=== PATIENT | male | born 1975 | race Caucasian/White ===

== ENCOUNTER → 2018-11-14 | Outpatient (CLI) | payer BC ==
[~2018-11-14] MED LIST: ACHD5005 PO; DIAZ2TAB PO; DOXY100T2 PO; FAMO10TA43 PO; HOLD METFORMIN - RECEIVED CONTRAST 20 ML VIAL IV SCH; IBUP-1780 PO; IOHEXOL 350 MG/ML 100 ML (OMNIPAQUE 350) VIAL IV ONE; NS 100 ML (IVPB) BAG IV ONE; PANT40TA2 PO
--- NOTE | 2018-11-14 11:21 | Diagnostic Imaging Report ---
PROCEDURE: CT abdomen and pelvis with and without contrast. TECHNIQUE: Precontrast acquisitions were acquired through the abdomen and pelvis. Multiple contiguous axial images were obtained through the abdomen and pelvis after the administration of intravenous contrast. Auto Exposure Controls were utilized during the CT exam to meet ALARA standards for radiation dose reduction. INDICATION: Right upper quadrant pain. COMPARISON: None available. FINDINGS: Lower chest: The lung bases are clear. No pericardial or pleural effusion. Peritoneum: No free intraperitoneal air or fluid. Liver and biliary system: The liver is normal. The gallbladder is normal. No biliary duct dilation. Spleen and Pancreas: Spleen is normal. The pancreas enhances normally without mass lesion or peripancreatic inflammatory changes. Adrenals: Normal. tract: No urinary tract calculi. The kidneys enhance normally without suspicious mass or obstruction. Simple cysts in the lower pole of the left kidney measures 2 x 2 cm. Urinary bladder is distended without wall thickening. Prostate is not enlarged. GI tract: Stomach is partially filled with fluid and there is no wall thickening allowing for incomplete distention. No bowel obstruction. No pericolonic inflammatory changes. Normal appendix. Vasculature and Lymph nodes: Normal caliber aorta. No abdominal or pelvic lymphadenopathy. Musculoskeletal: No concerning osseous lesion. No abdominal or pelvic hernia. Small fat-containing bilateral inguinal hernias. IMPRESSION: 1. No acute obstructive or inflammatory process in the abdomen or pelvis. 2. No urinary tract calculi. Dictated by: Dictated on workstation # [id number]
== END ==
LOC: RAD 10:46
PROVIDERS: ATTEND Nurse Practitioner Family
DX: R10.11 Right upper quadrant pain (principal)
CPT/HCPCS: 74178

== ENCOUNTER → 2018-11-15 | Outpatient (CLI) | payer BC ==
[~2018-11-15] MED LIST changes: -HOLD METFORMIN - RECEIVED CONTRAST 20 ML VIAL IV SCH; -IOHEXOL 350 MG/ML 100 ML (OMNIPAQUE 350) VIAL IV ONE; -NS 100 ML (IVPB) BAG IV ONE
== END | disposition home or self-care (01) ==
LOC: PREOP 12:55
PROVIDERS: ATTEND Surgery
DX: Z01.818 Encounter for other preprocedural examination (principal)

== ENCOUNTER 2018-11-16 20:36 | Emergency (ER) | payer BC ==
[~2018-11-16] VITALS: Ht 182.9 cm; Wt 111.6 kg
[2018-11-16] MEDS ORDERED: morphine INJ 10 MG/ML 1ML (SYR OR VIAL) IM STA (21:04)
--- NOTE | 2018-11-16 21:04 | ED Upper Extremity ---
General Chief Complaint: Upper Extremity Stated Complaint: RT ARM Nursing Triage Note: PT HAD HIS GALL BLADDER OUT TODAY AND NOW C/O RIGHT ARM PAIN. PT. SCREAMING OUT IN PAIN. PT. C/O RIGHT ARM AND SHOULDER PAIN. Nursing Sepsis Screen: No Definite Risk Source: patient, family History of Present Illness Date Seen by Provider: Nov 16, 2018 Time Seen by Provider: 21:02 Allergies and Home Medications Allergies Coded Allergies: Penicillins (Verified Allergy, Unknown, 11/16/18) Home Medications Diazepam 2 Mg Tablet, 2 MG PO Q6H, (Reported) Doxycycline Hyclate 100 Mg Tablet, 100 MG PO PRN, (Reported) Famotidine 10 Mg Tablet, 10 MG PO BID, (Reported) Hydrocodone Bit/Acetaminophen 1 Tab Tab, 1 TAB PO Q6H PRN for ABDOMINAL PAIN Prescribed by: EUGENE MARCOS on 11/16/18 1424 Ibuprofen 800 Mg Tablet, 800 MG PO PRN PRN for PAIN-MILD, (Reported) Past Pipwwzq-Lkrpnv-Kpetvl Hx Patient Social History Type Used: Cigarettes Former Smoker, Quit: Jan 17, 2003 Recent Foreign Travel: No Contact w/Someone Who Travel: No Recent Infectious Disease Expo: No Recent Hopitalizations: No Seasonal Allergies Seasonal Allergies: Yes Past Medical History Surgeries: No (EGD/COLONOSCOPY) Respiratory: No Cardiac: No Neurological: No Genitourinary: No Gastrointestinal: Yes Gastroesophageal Reflux Musculoskeletal: No Endocrine: No HEENT: No Cancer: No Psychosocial: Yes Anxiety Integumentary: No Blood Disorders: No Physical Exam Vital Signs Vital Signs - First Documented 11/16/18 20:45 Temp 98.4 Pulse 109 Resp 20 B/P (MAP) 164/71 (102) O2 Delivery Room Air Capillary Refill : Less Than 3 Seconds Height, Weight, BMI Height: 6'0" Weight: 246lbs. 0.0oz. [id number]; 33.5 BMI Method:Stated Progress/Results/Core Measures Results/Orders My Orders Orders - DANA TRIMBLE DO Orphenadrine Injection (Norflex Injectio (11/16/18 21:15) Morphine Injection (Morphine Injection (11/16/18 21:04) Chest Pa/Lat (2 View) (11/16/18 21:48) Diazepam Injection (Valium Injection) (11/16/18 23:45) Dexamethasone Injection (Decadron Inject (11/16/18 23:45) Diazepam Tablet (Valium Tablet) (11/16/18 23:45) Medications Given in ED Current Medications Medications Dose Ordered Sig/Lynne Route Start Time Stop Time Status Last Admin Dose Admin Orphenadrine Citrate 60 mg ONCE ONCE IM 11/16/18 21:15 11/16/18 21:16 DC 11/16/18 21:22 60 MG Vital Signs/I&O 11/16/18 20:45 Temp 98.4 Pulse 109 Resp 20 B/P (MAP) 164/71 (102) O2 Delivery Room Air Blood Pressure Mean: 102 Departure Impression Primary Impression: Right shoulder pain Additional Impression: S/P cholecystectomy Disposition: 01 HOME, SELF-CARE Condition: Improved Departure-Patient Inst. Decision time for Depature: 23:43 Referrals: DANA MARTINEZ DO (PCP) Primary Care Physician DAMIAN MARTINEZ, SARA (Family) Primary Care Physician EUGENE MARCOS DO Patient Instructions: Cholecystectomy (DC), Shoulder Pain (DC) Add. Discharge Instructions: All discharge instructions reviewed with patient and/or family. Voiced understanding. MAY TAKE 2 OF YOUR HYDROCODONE EVERY 4-6 HOURS FOR PAIN. MAY TAKE 5 mg OF VALIUM EVERY 6 HOUR NEEDED WELL. 600 mg OF IBUPROFEN CAN BE USED WELL EVERY 6 HOURS IF NEEDED. DANA TRIMBLE DO Nov 16, 2018 21:04
[2018-11-16] MEDS ORDERED: ORPHENADRINE 60 MG/2 ML (NORFLEX) AMP IM ONE (21:15)
[2018-11-16] MEDS ORDERED: DIAZEPAM INJ 10 MG/2 ML (VALIUM) SYR IM ONE (23:45)
[2018-11-16] MEDS ORDERED: DIAZEPAM 5 MG (VALIUM) TABLET PO ONE (23:45)
[2018-11-16] MEDS ORDERED: DEXAMETHASONE 10 MG/ML (DECADRON) 1 ML VIAL IM ONE (23:45)
[2018-11-16 23:49] VITALS: BP 164/71
--- NOTE | 2018-11-17 05:25 | Diagnostic Imaging Report ---
INDICATION: Right arm pain COMPARISON: None available TECHNIQUE: Frontal and lateral radiographs of the chest dated 11/16/2018. FINDINGS: The cardiac silhouette is within normal limits in size. No significant pulmonary vascular congestion. Low lung volumes with mild bibasilar interstitial opacities. No significant pleural effusion. No pneumothorax. No acute osseous abnormality. IMPRESSION: Low lung volumes with bibasilar atelectasis and/or pneumonitis. Dictated by: Dictated on workstation # [id number]
== END 2018-11-16 23:49 | disposition home or self-care (01) ==
LOC: EDUNIT# 20:36 → ER FS 20:37
DX: M25.511 Pain in right shoulder (principal); K21.9 Gastro-esophageal reflux disease without esophagitis; F41.9 Anxiety disorder, unspecified; Z88.0 Allergy status to penicillin; Z87.891 Personal history of nicotine dependence; Z90.49 Acquired absence of other specified parts of digestive tract
CPT/HCPCS: 71046

== ENCOUNTER 2019-04-27 15:27 | Emergency (ER) | payer BC ==
[~2019-04-27] VITALS: Ht 182 cm; Wt 111.0 kg
--- NOTE | 2019-04-27 16:00 | ED Upper Extremity ---
General Chief Complaint: Upper Extremity Stated Complaint: LT ANKLE PAIN Nursing Triage Note: PT DID NOT INJURE HIS ANKLE BUT HAS HAD PAIN IN THE LEFT ANKLE SINCE TUESDAY. Nursing Sepsis Screen: No Definite Risk Source: patient Exam Limitations: no limitations History of Present Illness Date Seen by Provider: Apr 27, 2019 Time Seen by Provider: 15:45 Initial Comments Patient presents with complaint of left ankle pain worse with weightbearing for the past one week. Denies injury or history of injury. Denies swelling or bruising. Pain is described as burning sometimes shooting from his ankle into his heel. Denies previous occurrence of similar pain. Denies any work-related overuse or trauma. No other joint pain, no other complaints. Pain is intermittent and exacerbated by weight bearing only. No pain at rest or with NWB and active ROM Allergies and Home Medications Allergies Coded Allergies: Penicillins (Verified Allergy, Unknown, 11/16/18) Home Medications Diazepam 2 Mg Tablet, 2 MG PO Q6H, (Reported) Doxycycline Hyclate 100 Mg Tablet, 100 MG PO PRN, (Reported) Famotidine 10 Mg Tablet, 10 MG PO BID, (Reported) Hydrocodone Bit/Acetaminophen 1 Tab Tab, 1 TAB PO Q6H PRN for ABDOMINAL PAIN Prescribed by: EUGENE MARCOS on 11/16/18 1424 Ibuprofen 800 Mg Tablet, 800 MG PO PRN PRN for PAIN-MILD, (Reported) Patient Home Medication List Home Medication List Reviewed: Yes Review of Systems Constitutional: no symptoms reported; No fever, No malaise, No weakness Musculoskeletal: no symptoms reported; No back pain; joint pain; No joint swelling, No muscle pain, No muscle stiffness, No muscle cramps, No muscle twitching, No muscle weakness, No neck pain Skin: see HPI; No change in hair/nails, No lesions, No lumps Past Mtmlacq-Bllmqp-Koqqln Hx Past Med/Social Hx: Reviewed Nursing Past Med/Soc Hx Patient Social History Alcohol Use: Regular Use Alcohol Beverage of Choice: Beer Recreational Drug Use: No Smoking Status: Current Everyday Smoker Type Used: Cigarettes Former Smoker, Quit: Jan 17, 2003 2nd Hand Smoke Exposure: No Recent Foreign Travel: No Contact w/Someone Who Travel: No Recent Infectious Disease Expo: No Recent Hopitalizations: No Physical Abuse: No Sexual Abuse: No Mistreated: No Fear: No Seasonal Allergies Seasonal Allergies: No Past Medical History Surgeries: Yes Gallbladder Respiratory: No Cardiac: No Neurological: No Genitourinary: No Gastrointestinal: No Gastroesophageal Reflux Musculoskeletal: No Endocrine: No HEENT: No Cancer: No Psychosocial: No Anxiety Integumentary: No Blood Disorders: No Physical Exam Vital Signs Vital Signs - First Documented 04/27/19 15:40 Temp 36.6 Pulse 99 Resp 20 B/P (MAP) 143/82 (102) Pulse Ox 96 O2 Delivery Room Air Capillary Refill : Less Than 3 Seconds Height, Weight, BMI Height: 6'0" Weight: 246lbs. 0.0oz. 111.694154me; 33.00 BMI Method:Stated General Appearance: WD/WN, no apparent distress Skin: normal color, warm/dry Left lower extremity- Neurovascular intact, no gross deformity, full functional range of motion without limitation or pain. No palpable tenderness either bony, soft tissue or ligamentous. No fifth metatarsal pain, no calcaneal pain, no Achilles tenderness. No calf tenderness and no proximal fibular or tibia tenderness. Normal left lower extremity. Progress/Results/Core Measures Results/Orders My Orders Orders - RIAZ GÓMEZ DO Ankle 3 View Left (04/27/19 15:54) Vital Signs/I&O 04/27/19 04/27/19 15:40 16:26 Temp 36.6 36.6 Pulse 99 99 Resp 20 20 B/P (MAP) 143/82 (102) 143/82 (102) Pulse Ox 96 96 O2 Delivery Room Air Blood Pressure Mean: 102 POS Departure Impression Primary Impression: Ankle pain, left Qualified Codes: M25.572 - Pain in left ankle and joints of left foot Disposition: 01 HOME, SELF-CARE Condition: Unchanged Departure-Patient Inst. Referrals: DANA MARTINEZ DO (PCP) Primary Care Physician DAMIAN MARTINEZ DNP (Family) Primary Care Physician Patient Instructions: Ankle Strengthening Exercises Add. Discharge Instructions: All discharge instructions reviewed with patient and/or family. Voiced understanding. See your Primary Care Doctor in 1 week for re-evaluation. RIAZ GÓMEZ DO Apr 27, 2019 16:00 POS
--- NOTE | 2019-04-27 16:10 | Diagnostic Imaging Report ---
INDICATION: Left ankle pain. AP, oblique and lateral views of the left ankle are obtained. FINDINGS: There is mild plantar calcaneal spurring. No acute fracture or dislocation is identified. No abnormal lytic or sclerotic focus is seen, and there is no radiopaque foreign body. IMPRESSION: No acute abnormality. Dictated by: Dictated on workstation # [id number]
[2019-04-27 16:26] VITALS: BP 143/82
--- OUTSIDE RECORDS SUMMARY | 2019-05-23 14:32 | XMS REPORT | Continuity of Care Document ---
Author Organization Unknown Address Unknown Phone Unavailable Allergies Active Description Code Type Severity Reaction Onset Reported/Identified Relationship to Patient Clinical Status Yes Penicillins [id number] Drug Aller gy Unknown N/A 11/16/2018 Medications There is no data. Problems Date Dx Coded Attending Type Code Diagnosis Diagnosed By 01/17/2018 KASHIF PITTMAN MD, Ot Z01.818 ENCOUNTER FOR OTHER PREPROCEDURAL EXAMIN 01/19/2018 KASHIF PITTMAN MD, Ot B96.81 HELICOBACTER PYLORI THE CAUSE OF DISE 01/19/2018 KASHIF PITTMAN MD Ot K22.10 ULCER OF ESOPHAGUS WITHOUT BLEEDING 01/19/2018 KASHIF PITTMAN MD Ot K29.50 UNSPECIFIED CHRONIC GASTRITIS WITHOUT BL 01/19/2018 KASHIF PITTMAN MD Ot K29.80 DUODENITIS WITHOUT BLEEDING 01/24/2018 KASHIF PITTMAN MD Ot B96.81 HELICOBACTER PYLORI THE CAUSE OF DISE 01/24/2018 KASHIF PITTMAN MD Ot K22.10 ULCER OF ESOPHAGUS WITHOUT BLEEDING 01/24/2018 KASHIF PITTMAN MD Ot K29.50 UNSPECIFIED CHRONIC GASTRITIS WITHOUT BL 01/24/2018 KASHIF PITTMAN MD Ot K29.80 DUODENITIS WITHOUT BLEEDING 01/25/2018 KASHIF PITTMAN MD Ot B96.81 HELICOBACTER PYLORI THE CAUSE OF DISE 01/25/2018 KASHIF PITTMAN MD Ot K22.10 ULCER OF ESOPHAGUS WITHOUT BLEEDING 01/25/2018 KASHIF PITTMAN MD Ot K29.50 UNSPECIFIED CHRONIC GASTRITIS WITHOUT BL 01/25/2018 KASHIF PITTMAN MD Ot K29.80 DUODENITIS WITHOUT BLEEDING 11/15/2018 DAMIAN MARTINEZ PYROTECHNIC ASSEMBLER Ot R10.11 RIGHT UPPER QUADRANT PAIN 11/16/2018 EUGENE MARCOS DO Ot Z01.8 18 ENCOUNTER FOR OTHER PREPROCEDURAL EXAMIN 11/16/2018 EUGENE MARCOS DO Ot B96.8 1 HELICOBACTER PYLORI THE CAUSE OF DISE 11/16/2018 HEMANT TRUJILLO, EUGENE B Ot E66.9 OBESITY, UNSPECIFIED 11/16/2018 HEMANT TRUJILLO, EUGENE B Ot K20.9 ESOPHAGITIS, UNSPECIFIED 11/16/2018 HEMANT TRUJILLO, EUGENE B Ot K21.9 GASTRO-ESOPHAGEAL REFLUX DISEASE WITHOUT 11/16/2018 HEMANT TRUJILLO, EUGENE B Ot K29.5 0 UNSPECIFIED CHRONIC GASTRITIS WITHOUT BL 11/16/2018 HEMANT TRUJILLO EUGENE B Ot K81.1 CHRONIC CHOLECYSTITIS 11/16/2018 HEMANT TRUJILLO, EUGENE B Ot M25.5 11 PAIN IN RIGHT SHOULDER 11/16/2018 HEMANT TRUJILLO, EUGENE B Ot Z68.3 3 BODY MASS INDEX (BMI) 33.0-33.9, ADULT 11/16/2018 HEMANT TRUJILLO EUGENE B Ot Z01.8 18 ENCOUNTER FOR OTHER PREPROCEDURAL EXAMIN 11/16/2018 DANA TRIMBLE DO Ot F41.9 ANXIETY DISORDER, UNSPECIFIED 11/16/2018 DANA TRIMBLE DO Ot K21.9 GASTRO-ESOPHAGEAL REFLUX DISEASE WITHOUT 11/16/2018 DANA TRIMBLE DO Ot M25.511 PAIN IN RIGHT SHOULDER 11/16/2018 DANA TRIMBLE DO Ot Z87.891 PERSONAL HISTORY OF NICOTINE DEPENDENCE 11/16/2018 DANA TRIMBLE DO Ot Z88.0 ALLERGY STATUS TO PENICILLIN 11/16/2018 DANA TRIMBLE DO Ot Z90.49 ACQUIRED ABSENCE OF OTHER SPECIFIED PART 11/17/2018 DANA TRIMBLE DO Ot F41.9 ANXIETY DISORDER, UNSPECIFIED 11/17/2018 DANA TRIMBLE DO Ot K21.9 GASTRO-ESOPHAGEAL REFLUX DISEASE WITHOUT 11/17/2018 DANA TRIMBLE DO Ot M25.511 PAIN IN RIGHT SHOULDER 11/17/2018 DANA TRIMBLE DO Ot Z87.891 PERSONAL HISTORY OF NICOTINE DEPENDENCE 11/17/2018 DANA TRIMBLE DO Ot Z88.0 ALLERGY STATUS TO PENICILLIN 11/17/2018 DANA TRIMBLE DO Ot Z90.49 ACQUIRED ABSENCE OF OTHER SPECIFIED PART 11/28/2018 DAMIAN MARTINEZ Ot R10.11 RIGHT UPPER QUADRANT PAIN 11/29/2018 HEMANT SHANON TRUJILLOIC B Ot B96.8 1 HELICOBACTER PYLORI THE CAUSE OF DISE 11/29/2018 DELMAN DO, EUGENE B Ot E66.9 OBESITY, UNSPECIFIED 11/29/2018 DELMAN DO, EUGENE B Ot K20.9 ESOPHAGITIS, UNSPECIFIED 11/29/2018 DELMAN DO, EUGENE B Ot K21.9 GASTRO-ESOPHAGEAL REFLUX DISEASE WITHOUT 11/29/2018 DELMAN DO, EUGENE B Ot K29.5 0 UNSPECIFIED CHRONIC GASTRITIS WITHOUT BL 11/29/2018 DELMAN DO, EUGENE B Ot K81.1 CHRONIC CHOLECYSTITIS 11/29/2018 DELMAN DO, EUGENE B Ot Z68.3 3 BODY MASS INDEX (BMI) 33.0-33.9, ADULT 12/01/2018 DELMAN DO, EUGENE B Ot B96.8 1 HELICOBACTER PYLORI THE CAUSE OF DISE 12/01/2018 DELMAN DO, EUGENE B Ot E66.9 OBESITY, UNSPECIFIED 12/01/2018 DELMAN DO, EUGENE B Ot K20.9 ESOPHAGITIS, UNSPECIFIED 12/01/2018 DELMAN DO, EUGENE B Ot K21.9 GASTRO-ESOPHAGEAL REFLUX DISEASE WITHOUT 12/01/2018 DELMAN DO, EUGENE B Ot K29.5 0 UNSPECIFIED CHRONIC GASTRITIS WITHOUT BL 12/01/2018 DELMAN DO, EUGENE B Ot K81.1 CHRONIC CHOLECYSTITIS 12/01/2018 DELMAN DO, EUGENE B Ot M25.5 11 PAIN IN RIGHT SHOULDER 12/01/2018 DELMAYRA DO, EUGENE B Ot Z68.3 3 BODY MASS INDEX (BMI) 33.0-33.9, ADULT 12/08/2018 DAMIAN MARTINEZ Ot R10.11 RIGHT UPPER QUADRANT PAIN 12/08/2018 DELMAN DO, EUGENE B Ot Z01.8 18 ENCOUNTER FOR OTHER PREPROCEDURAL EXAMIN 12/14/2018 DAMIAN MARTINEZ PYROTECHNIC ASSEMBLER Ot R10.11 RIGHT UPPER QUADRANT PAIN 04/27/2019 TRISTINSTRIAZ KUMAR DO Ot F17.210 NICOTINE DEPENDENCE, CIGARETTES, UNCOMPL 04/27/2019 TRISTINSTRIAZ KUMAR DO Ot F41.9 ANXIETY DISORDER, UNSPECIFIED 04/27/2019 TRISTINSTRIAZ KUMAR DO Ot K21.9 GASTRO-ESOPHAGEAL REFLUX DISEASE WITHOUT 04/27/2019 ROVENSTINE RIAZ TRUJILLO Ot M25.572 PAIN IN LEFT ANKLE AND JOINTS OF LEFT FO 04/27/2019 RIAZ GÓMEZ DO Ot Z88.0 ALLERGY STATUS TO PENICILLIN Procedures There is no data. Results Test Result Range Methicillin resistant Staphylococcus aur eus (MRSA) screening culture - 11/16/18 09:40 Methicillin resistant Staphylococcus aureus (MRSA) scr eening culture NEG NRG Encounters ACCT No. Visit Date/Time Discharge Status Pt. Type Provider Facility Loc./Unit Complaint [id number] 04/27/2019 15:28:00 16:20:00 DIS Emergency RIAZ GÓMEZ DO [facility] ER FS LT ANKLE PAIN [id number] 04/25/2019 08:45:00 08:45:00 CAN Preadmit DAMIAN MARTINEZ [facility] RAD NECK PAIN,STUTTERING,MEMMORY LOSS,HEADACHE [id number] 11/16/2018 20:37:00 23:49:00 DIS Emergency DANA TRIBMLE DO [facility] FS RT ARM [id number] 11/16/2018 09:19:00 17:20:00 DIS Outpatient EUGENE MARCOS DO [facility] SDC ACUTE CHOLECYSTITIS [id number] 11/15/2018 12:55:00 23:59:59 CLS Outpatient EUGENE MARCOS DO [facility] PREOP ACUTE CHOLECYSTITIS [id number] 11/14/2018 10:46:00 23:59:59 CLS Outpatient DAMIAN MARTINEZ [facility] RAD ABD/PELVIC PAIN [id number] 01/19/2018 09:31:00 018 12:20:00 DIS Outpatient KASHIF PITTMAN MD [facility] ENDO EPIGASTRIC PAIN/HEARTBU RN [id number] 01/17/2018 05:59:00 018 14:27:00 DIS Outpatient KASHIF PITTMAN MD [facility] PREOP EGD
== END 2019-04-27 16:20 | disposition home or self-care (01) ==
LOC: EDUNIT# 15:27 → ER FS 15:28
DX: M25.572 Pain in left ankle and joints of left foot (principal); K21.9 Gastro-esophageal reflux disease without esophagitis; F41.9 Anxiety disorder, unspecified; F17.210 Nicotine dependence, cigarettes, uncomplicated; Z88.0 Allergy status to penicillin
CPT/HCPCS: 73610

== ENCOUNTER 2020-05-20 10:07 | Emergency (ER) | payer BC ==
[~2020-05-20] VITALS: Ht 182.8 cm; Wt 109.4 kg
[2020-05-20] MEDS ORDERED: NS IV 1000 ML 1,000 ML IV SCH (10:30)
--- NOTE | 2020-05-20 10:39 | ED GI ---
General Chief Complaint: Abdominal/GI Problems Stated Complaint: DIARRHEA; BLOODY STOOL Nursing Triage Note: Patient reports he has had diarrhea, blood in stool, nausea after eating, and "cold sweats" for 9 days. He states he has been tested for COVID and tested negative. He called his PCP and was referred to the ED for treatment. Sepsis Screen: No Definite Risk Source of Information: Patient History of Present Illness Date Seen by Provider: May 20, 2020 Time Seen by Provider: 10:12 Initial Comments 45-year-old male presenting with complaints of abdominal cramping, diarrhea, nausea, blood in his stools for 9 days. He states that he has also been having some cold sweats. He had a negative COVID test on Tuesday. He states this all started after going to [facility] last weekend. He had blood work and the negative COVID test done through his primary doctor in [place]. He has been taking metronidazole 500 mg 3 times a day since Tuesday without improvement. He started Levsin on Tuesday which has helped with his abdominal cramping. He does have Zofran which has helped some with his nausea. He continues to have bloody stools and frequent diarrhea that is watery and has blood mixed in with it. His primary provider advised him to come to the emergency department to get fluids for dehydration and to see what was causing the diarrhea. He reports chills and nausea but denies fever. No pain with urination. He denies history of diverticulitis. Allergies and Home Medications Allergies Coded Allergies: Penicillins (Verified Allergy, Unknown, 11/16/18) Home Medications Azithromycin 500 Mg Tablet, 500 MG PO DAILY Prescribed by: DAHLIA MELGAR on 05/20/20 1337 Diazepam 2 Mg Tablet, 2 MG PO Q6H, (Reported) Doxycycline Hyclate 100 Mg Tablet, 100 MG PO PRN, (Reported) Famotidine 10 Mg Tablet, 10 MG PO BID, (Reported) Hydrocodone Bit/Acetaminophen 1 Tab Tab, 1 TAB PO Q6H PRN for ABDOMINAL PAIN Prescribed by: EUGENE MARCOS on 11/16/18 1424 Ibuprofen 800 Mg Tablet, 800 MG PO PRN PRN for PAIN-MILD, (Reported) Patient Home Medication List Home Medication List Reviewed: Yes Review of Systems Review of Systems Constitutional: chills, dizziness (with standing sometimes); No fever; malaise EENTM: No Symptoms Reported Respiratory: Cough (today) Cardiovascular: Denies Chest Pain, Denies Edema Gastrointestinal: See HPI Genitourinary: No Symptoms Reported Musculoskeletal: no symptoms reported Skin: no symptoms reported Psychiatric/Neurological: No Symptoms Reported Endocrine: No Symptoms Reported Past Mvmdmzy-Vpftsu-Ezqmai Hx Past Med/Social Hx: Reviewed Nursing Past Med/Soc Hx Patient Social History Alcohol Use: Rarely Uses Alcohol Beverage of Choice: Beer Recreational Drug Use: No Smoking Status: Never a Smoker Type Used: Cigarettes Former Smoker, Quit: Jan 17, 2003 2nd Hand Smoke Exposure: No Recent Foreign Travel: No Contact w/Someone Who Travel: No Recent Infectious Disease Expo: No Recent Hopitalizations: No Physical Abuse: No Sexual Abuse: No Mistreated: No Fear: No Seasonal Allergies Seasonal Allergies: No Past Medical History Surgeries: Yes Gallbladder Respiratory: No Cardiac: No Neurological: No Genitourinary: No Gastrointestinal: No Gastroesophageal Reflux Musculoskeletal: No Endocrine: No HEENT: No Cancer: No Psychosocial: No Anxiety Integumentary: No Blood Disorders: Yes ([place] Spotted Fever) Physical Exam Vital Signs Vital Signs - First Documented 05/20/20 10:12 Temp 36.6 Pulse 90 Resp 18 B/P (MAP) 134/85 (101) Pulse Ox 97 O2 Delivery Room Air Capillary Refill : Less Than 3 Seconds Height/Weight/BMI Height: 6'0" Weight: 246lbs. 0.0oz. 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, alert, oriented x 3 Skin: normal color, warm/dry Images 1 - no pain on palpation but reported cramping across upper abdomen and in lower pelvis Focused Exam Lactate Level 05/20/20 10:35: Lactic Acid Level 1.28 Lactic Acid Level Laboratory Tests Test 05/20/20 10:35 Lactic Acid Level 1.28 MMOL/L (0.50-2.00) Progress/Results/Core Measures Results/Orders Lab Results Laboratory Tests Test 05/20/20 10:35 05/20/20 10:55 Range/Units White Blood Count 12.9 H 4.3-11.0 10^3/uL Red Blood Count 5.24 4.35-5.85 10^6/uL Hemoglobin 15.5 13.3-17.7 G/DL Hematocrit 44 40-54 % Mean Corpuscular Volume 83 80-99 FL Mean Corpuscular Hemoglobin 30 25-34 PG Mean Corpuscular Hemoglobin Concent 36 32-36 G/DL Red Cell Distribution Width 12.5 10.0-14.5 % Platelet Count 370 130-400 10^3/uL Mean Platelet Volume 9.3 7.4-10.4 FL Immature Granulocyte % (Auto) 1 % Neutrophils (%) (Auto) 62 42-75 % Lymphocytes (%) (Auto) 20 12-44 % Monocytes (%) (Auto) 12 0-12 % Eosinophils (%) (Auto) 5 0-10 % Basophils (%) (Auto) 1 0-10 % Neutrophils # (Auto) 8.0 H 1.8-7.8 X 10^3 Lymphocytes # (Auto) 2.6 1.0-4.0 X 10^3 Monocytes # (Auto) 1.5 H 0.0-1.0 X 10^3 Eosinophils # (Auto) 0.7 H 0.0-0.3 10^3/uL Basophils # (Auto) 0.1 0.0-0.1 10^3/uL Immature Granulocyte # (Auto) 0.1 0.0-0.1 10^3/uL Neutrophils % (Manual) 51 % Lymphocytes % (Manual) 22 % Monocytes % (Manual) 4 % Eosinophils % (Manual) 4 % Basophils % (Manual) 1 % Band Neutrophils 18 % Sodium Level 132 L 135-145 MMOL/L Potassium Level 3.5 L 3.6-5.0 MMOL/L Chloride Level 99 98-107 MMOL/L Carbon Dioxide Level 22 21-32 MMOL/L Anion Gap 11 5-14 MMOL/L Blood Urea Nitrogen 11 7-18 MG/DL Creatinine 0.98 0.60-1.30 MG/DL Estimat Glomerular Filtration Rate > 60 BUN/Creatinine Ratio 11 Glucose Level 144 H 70-105 MG/DL Lactic Acid Level 1.28 0.50-2.00 MMOL/L Calcium Level 8.5 8.5-10.1 MG/DL Corrected Calcium 9.1 8.5-10.1 MG/DL Total Bilirubin 0.4 0.1-1.0 MG/DL Aspartate Amino Transf (AST/SGOT) 16 5-34 U/L Alanine Aminotransferase (ALT/SGPT) 22 0-55 U/L Alkaline Phosphatase 61 40-136 U/L Total Protein 6.3 L 6.4-8.2 GM/DL Albumin 3.3 3.2-4.5 GM/DL Lipase 209 H 8-78 U/L Urine Color YELLOW Urine Clarity CLEAR Urine pH 6.0 5-9 Urine Specific [place] <=1.005 1.016-1.022 Urine Protein NEGATIVE NEGATIVE Urine Glucose (UA) NEGATIVE NEGATIVE Urine Ketones NEGATIVE NEGATIVE Urine Nitrite NEGATIVE NEGATIVE Urine Bilirubin NEGATIVE NEGATIVE Urine Urobilinogen 0.2 < = 1.0 MG/DL Urine Leukocyte Esterase NEGATIVE NEGATIVE Urine RBC (Auto) NEGATIVE NEGATIVE Urine RBC NONE /HPF Urine WBC 0-2 /HPF Urine Squamous Epithelial Cells RARE /HPF Urine Crystals NONE /LPF Urine Bacteria NEGATIVE /HPF Urine Casts NONE /LPF Urine Mucus NEGATIVE /LPF Urine Culture Indicated NO My Orders Orders - DAHLIA MELGAR MD Comprehensive Metabolic Panel (05/20/20 10:30) Lipase (05/20/20 10:30) Ua Culture If Indicated (05/20/20 10:30) Ed Iv/Invasive Line Start (05/20/20 10:30) Cbc With Automated Diff (05/20/20 10:30) Stool Culture (05/20/20 10:30) Fecal Wbc (05/20/20 10:30) C Difficile Ag + Toxin A/B. (05/20/20 10:30) Isolation Central Supply Req (05/20/20 10:30) Ns Iv 1000 Ml (Sodium Chloride 0.9%) (05/20/20 10:30) Lactic Acid Analyzer (05/20/20 10:30) Manual Differential (05/20/20 10:35) Ct Abdomen/Pelvis Wo (05/20/20 10:30) Vital Signs/I&O 05/20/20 10:12 Temp 36.6 Pulse 90 Resp 18 B/P (MAP) 134/85 (101) Pulse Ox 97 O2 Delivery Room Air Blood Pressure Mean: 101 Progress Progress Note #1: Progress Note check labs and CT scan of abdomen/pelvis with IV contrast. Give IVF for hydration. If he is able to provide a stool specimen will send stool studies. Progress Note #2: Time: 12:22 Progress Note labs show elevated WBC count, Chemistry stable other than elevated lipase at 209. His UA shows no infection or dehydration as he has specific gravity less than 1.005. awaiting CT scan. Progress Note #3: Time: 13:[address] scan shows inflammation and wall thickening of the colon consistent with inflammatory process or infectious process. No abscess or fluid collection in the abdomen or pelvis. No abnormality of the pancreas or other organs. From review of [employer] will treat with Azithromycin for his bloody diarrhea until cultures come back to see if he has a specific infectious agent that would need a different agent. If continued symptoms return or seek medical care as he may need repeat testing. Eventually may need colonoscopy to evaluate for the bloody diarrhea once symptoms have resolved and he is better. Diagnostic Imaging Diagonstic Imaging: CT Plain Films/CT/US/NM/MRI: abdomen, pelvis Comments NAME: MELISA KENDRICK [facility] REC#: [id number] PT STATUS: REG ER : 1975 PHYSICIAN: DAHLIA MELGAR MD ADMIT DATE: 05/20/20/ER FS Draft Date of Exam:05/20/20 CT ABDOMEN/PELVIS WO PROCEDURE: CT abdomen and pelvis without contrast. TECHNIQUE: Multiple contiguous axial images were obtained through the abdomen and pelvis without the use of intravenous contrast. Auto Exposure Controls were utilized during the CT exam to meet ALARA standards for radiation dose reduction. DATE: May 20, 2020. COMPARISON: CT abdomen/pelvis November 14, 2018. INDICATION: 45-year-old male, abdominal pain, bloody diarrhea. Symptoms for 9 days. FINDINGS: There are limitations for evaluation of the abdominal organs, neoplastic processes, abscess, and limited evaluation of the vasculature relating to the lack of intravenous contrast. The visualized portions of the lung bases are clear. The heart is not enlarged. There is no identified pericardial effusion. The liver is unremarkable in size and contour. The patient is status post cholecystectomy. There is no intrahepatic or extrahepatic bile duct dilation. The main pancreatic duct is not abnormally dilated. Unremarkable appearance of the pancreatic parenchyma. The spleen is not enlarged. The adrenal glands are unremarkable. There is a low-attenuation left renal lesion on axial image 44 measuring 2.3 cm in size with internal attenuation compatible with a benign cyst. The urinary collecting systems are not distended. There is no identified renal or ureteral stone. There is a very small fat-containing right inguinal hernia. There is very mild wall thickening along the entire length of the colon with inflammatory stranding along the entire length of the colon. There is no appreciable abnormal small bowel wall thickening. There is no distention of the intestinal tract. There is no free intraperitoneal air, drainable fluid collection, or free pelvic fluid. There is a very small hiatal hernia. There are very mild atherosclerotic calcifications noted. There is no identified abnormally enlarged lymph node in the abdomen or pelvis meeting CT size criteria for adenopathy. There is a 5 mm sclerotic lesion in the right femoral head, most likely relating to a benign bone island. There is no identified acute bony abnormality. IMPRESSION: Long segment mild wall thickening of the entire length of the colon with adjacent inflammatory stranding, most likely relating to an infectious or inflammatory colitis. Dictated on workstation # [id number] Dict: 05/20/20 1249 Trans: 05/20/20 1257 [id number] Interpreted by: ANA CRISTINA VASQUEZ MD Electronically signed by: Departure Impression Primary Impression: Bloody diarrhea Additional Impressions: Abdominal cramping, generalized Colitis Disposition: 01 HOME, SELF-CARE Condition: Stable Departure-Patient Inst. Decision time for Depature: 13:37 Referrals: DANA MARTINEZ DO (PCP) Primary Care Physician DAMIAN MARTINEZ DNP (Family) Primary Care Physician Patient Instructions: Diarrhea, Adult ED, Bloody Stools, Adult ED Add. Discharge Instructions: Continue to drink plenty of fluids to stay well hydrated. Stop the Metronidazole and take Azithromycin (Zithromax) instead to treat for possible infection causing your bloody stools. Check back with your provider for continued concerns. If worsening symptoms or not improving after 2-3 days with medicine then seek medical care for recheck All discharge instructions reviewed with patient and/or family. Voiced unders tanding. Scripts Azithromycin (Azithromycin) 500 Mg Tablet 500 MG PO DAILY for bloody diarrhea for 5 Days, #5 TAB 0 Refills Prov: DAHLIA MELGAR MD 05/20/20 DAHLIA MELGAR MD May 20, 2020 10:39
[2020-05-20 10:49] LABS: HEMATOCRIT 44 % (40-54); HEMOGLOBIN 15.5 G/DL (13.3-17.7); MEAN CORPUSCULAR HEMOGLOBIN 30 PG (25-34); MEAN CORPUSCULAR HGB CONC 36 G/DL (32-36); MEAN CORPUSCULAR VOLUME 83 FL (80-99); WHITE BLOOD COUNT 12.9 10^3/uL (4.3-11.0)
[2020-05-20 10:50] LABS: BASOPHILS # (AUTO) 0.1 10^3/uL (0.0-0.1); BASOPHILS % (AUTO) 1 % (0-10); EOSINOPHILS # (AUTO) 0.7 10^3/uL (0.0-0.3); EOSINOPHILS % (AUTO) 5 % (0-10); LYMPHOCYTES # (AUTO) 2.6 X 10^3 (1.0-4.0); LYMPHOCYTES % (AUTO) 20 % (12-44); MEAN PLATELET VOLUME 9.3 FL (7.4-10.4); MONOCYTES # (AUTO) 1.5 X 10^3 (0.0-1.0); MONOCYTES % (AUTO) 12 % (0-12); NEUTROPHILS % (AUTO) 62 % (42-75); PLATELET COUNT 370 10^3/uL (130-400)
[2020-05-20] MEDS ORDERED: NS 100 ML (IVPB) BAG IV ONE (11:15)
[2020-05-20] MEDS ORDERED: CATHETER FLUSH 10 ML SYR IV PRN (11:15)
[2020-05-20] MEDS ORDERED: IOHEXOL 350 MG/ML 100 ML (OMNIPAQUE 350) VIAL IV ONE (11:15)
[2020-05-20] MEDS ORDERED: HOLD METFORMIN - RECEIVED CONTRAST 20 ML VIAL IV SCH (11:15)
[2020-05-20 11:19] LABS: BAND NEUTROPHILS 18 %; LYMPHOCYTES % (MANUAL) 22 %; NEUTROPHILS % (MANUAL) 51 %
[2020-05-20 11:20] LABS: CLARITY,URINE CLEAR; COLOR,URINE YELLOW
[2020-05-20 11:20] LABS: BASOPHILS % (MANUAL) 1 %; EOSINOPHILS % (MANUAL) 4 %; MONOCYTES % (MANUAL) 4 %
[2020-05-20 11:21] LABS: BACTERIA,URINE NEGATIVE /HPF; BILIRUBIN,URINE NEGATIVE (NEGATIVE); GLUCOSE, URINE (UA) NEGATIVE (NEGATIVE); KETONES,URINE NEGATIVE (NEGATIVE); LEUKOCYTE ESTERASE ,URINE NEGATIVE (NEGATIVE); NITRITE,URINE NEGATIVE (NEGATIVE); PROTEIN,URINE NEGATIVE (NEGATIVE); SQUAMOUS EPITHELIAL CELL,UR RARE /HPF; WBC,URINE 0-2 /HPF
[2020-05-20 11:23] LABS: BILIRUBIN,TOTAL 0.4 MG/DL (0.1-1.0); BUN/CREATININE RATIO 11; CALCIUM 8.5 MG/DL (8.5-10.1); CARBON DIOXIDE 22 MMOL/L (21-32); CHLORIDE 99 MMOL/L (98-107); CREATININE SERUM 0.98 MG/DL (0.60-1.30); GFR ESTIMATED > 60; GLUCOSE 144 MG/DL (70-105); POTASSIUM 3.5 MMOL/L (3.6-5.0); SODIUM 132 MMOL/L (135-145)
[2020-05-20 11:24] LABS: ALANINE AMINOTRANSFERASE 22 U/L (0-55); ALBUMIN 3.3 GM/DL (3.2-4.5); ALKALINE PHOSPHATASE 61 U/L (40-136); TOTAL PROTEIN 6.3 GM/DL (6.4-8.2)
[2020-05-20 12:01] LABS: LIPASE 209 U/L (8-78)
--- NOTE | 2020-05-20 12:57 | Diagnostic Imaging Report ---
PROCEDURE: CT abdomen and pelvis without contrast. TECHNIQUE: Multiple contiguous axial images were obtained through the abdomen and pelvis without the use of intravenous contrast. Auto Exposure Controls were utilized during the CT exam to meet ALARA standards for radiation dose reduction. DATE: May 20, 2020. COMPARISON: CT abdomen/pelvis November 14, 2018. INDICATION: 45-year-old male, abdominal pain, bloody diarrhea. Symptoms for 9 days. FINDINGS: There are limitations for evaluation of the abdominal organs, neoplastic processes, abscess, and limited evaluation of the vasculature relating to the lack of intravenous contrast. The visualized portions of the lung bases are clear. The heart is not enlarged. There is no identified pericardial effusion. The liver is unremarkable in size and contour. The patient is status post cholecystectomy. There is no intrahepatic or extrahepatic bile duct dilation. The main pancreatic duct is not abnormally dilated. Unremarkable appearance of the pancreatic parenchyma. The spleen is not enlarged. The adrenal glands are unremarkable. There is a low-attenuation left renal lesion on axial image 44 measuring 2.3 cm in size with internal attenuation compatible with a benign cyst. The urinary collecting systems are not distended. There is no identified renal or ureteral stone. There is a very small fat-containing right inguinal hernia. There is very mild wall thickening along the entire length of the colon with inflammatory stranding along the entire length of the colon. There is no appreciable abnormal small bowel wall thickening. There is no distention of the intestinal tract. There is no free intraperitoneal air, drainable fluid collection, or free pelvic fluid. There is a very small hiatal hernia. There are very mild atherosclerotic calcifications noted. There is no identified abnormally enlarged lymph node in the abdomen or pelvis meeting CT size criteria for adenopathy. There is a 5 mm sclerotic lesion in the right femoral head, most likely relating to a benign bone island. There is no identified acute bony abnormality. IMPRESSION: Long segment mild wall thickening of the entire length of the colon with adjacent inflammatory stranding, most likely relating to an infectious or inflammatory colitis. Dictated by: Dictated on workstation # [id number]
[2020-05-20] MEDS ORDERED: AZIT500T9 PO (13:37)
[2020-05-20 13:42] VITALS: BP 122/65
== END 2020-05-20 13:40 | disposition home or self-care (01) ==
LOC: EDUNIT# 10:07 → ER FS 10:10
DX: K92.1 Melena (principal); R10.84 Generalized abdominal pain; K52.9 Noninfective gastroenteritis and colitis, unspecified; K21.9 Gastro-esophageal reflux disease without esophagitis; F41.9 Anxiety disorder, unspecified; Z87.891 Personal history of nicotine dependence; Z88.0 Allergy status to penicillin; Z20.828 Contact with and (suspected) exposure to other viral communicable diseases
CPT/HCPCS: 36415; 74176; 80053; 81000; 83605; 83690; 85007; 85027; 87015; 87045; 87046; 87324; 87449; 87899

== ENCOUNTER 2020-05-23 16:49 | Emergency (ER) | payer BC ==
[~2020-05-23] VITALS: Ht 182 cm; Wt 100.0 kg
[~2020-05-23 16:49] MED LIST changes: +AZIT500T9 PO
[2020-05-23] MEDS ORDERED: PROMETHAZINE INJ 25 MG/ML (PHENERGAN) AMP IVP STA (17:03)
[2020-05-23] MEDS ORDERED: LACTATED RINGERS 1,000 ML IV STA ×2 (17:03→18:02)
--- NOTE | 2020-05-23 17:03 | ED Abdominal Pain ---
General Chief Complaint: Abdominal/GI Problems Stated Complaint: NAUSEA/VOMITING History of Present Illness Date Seen by Provider: May 23, 2020 Time Seen by Provider: 16:58 Initial Comments 45-year-old male presents with nausea vomiting. Patient was seen here on 1222 due to nausea, diarrhea and similar symptoms. At that time he had a CT scan that showed some inflammatory changes of the bowels, along with a stool culture. Stool culture shows no acute findings. Patient was started on azithromycin. This would make 12 days of symptoms. Patient reports the symptoms started after he went to [facility]. Patient's had a negative COVID's test. Patient presents today because he vomited the last couple days. He still having frequent diarrheal movements. There is otherwise no acute changes from his previous workup. Allergies and Home Medications Allergies Coded Allergies: Penicillins (Verified Allergy, Unknown, 11/16/18) Home Medications Azithromycin 500 Mg Tablet, 500 MG PO DAILY Prescribed by: DAHLIA MELGAR on 05/20/20 1337 Diazepam 2 Mg Tablet, 2 MG PO Q6H, (Reported) Doxycycline Hyclate 100 Mg Tablet, 100 MG PO PRN, (Reported) Famotidine 10 Mg Tablet, 10 MG PO BID, (Reported) Hydrocodone Bit/Acetaminophen 1 Tab Tab, 1 TAB PO Q6H PRN for ABDOMINAL PAIN Prescribed by: EUGENE MARCOS on 11/16/18 1424 Ibuprofen 800 Mg Tablet, 800 MG PO PRN PRN for PAIN-MILD, (Reported) Prednisone 20 Mg Tab, 40 MG PO DAILY Prescribed by: JOSE ANTONIO MANRIQUE on 05/23/20 1809 Patient Home Medication List Home Medication List Reviewed: Yes Review of Systems Review of Systems Constitutional: No chills, No fever Respiratory: Denies Cough, Denies Shortness of Air Cardiovascular: Denies Chest Pain, Denies Irregular Heart Rate Gastrointestinal: See HPI Genitourinary: Denies Burning Musculoskeletal: no symptoms reported Skin: no symptoms reported Psychiatric/Neurological: No Symptoms Reported Endocrine: No Symptoms Reported Past Tkikyac-Kibhqs-Kvccyn Hx Past Med/Social Hx: Reviewed Nursing Past Med/Soc Hx Patient Social History Alcohol Beverage of Choice: Beer Type Used: Cigarettes Former Smoker, Quit: Jan 17, 2003 2nd Hand Smoke Exposure: No Recent Foreign Travel: No Contact w/Someone Who Travel: No Recent Hopitalizations: No Seasonal Allergies Seasonal Allergies: No Past Medical History Surgeries: Yes Gallbladder Respiratory: No Cardiac: No Neurological: No Genitourinary: No Gastrointestinal: No Gastroesophageal Reflux Musculoskeletal: No Endocrine: No HEENT: No Cancer: No Psychosocial: No Anxiety Integumentary: No Blood Disorders: Yes ([address] Spotted Fever) Physical Exam Vital Signs Vital Signs - First Documented 05/23/20 17:20 Temp 36.4 Pulse 119 B/P (MAP) 140/79 (99) Pulse Ox 97 O2 Delivery Room Air Capillary Refill : Height/Weight/BMI Height: 6'0" Weight: 246lbs. 0.0oz. 111.778372fq; 32.00 BMI Method:Stated General Appearance: no apparent distress Neck: full range of motion, supple Respiratory: lungs clear, normal breath sounds Cardiovascular: normal peripheral pulses, regular rate, rhythm Gastrointestinal: non tender, soft; No distended, No guarding, No rebound Extremities: normal range of motion, non-tender Neurologic/Psychiatric: alert, normal mood/affect, oriented x 3 Skin: normal color, warm/dry Focused Exam Lactate Level 05/23/20 17:15: Lactic Acid Level 1.33 Lactic Acid Level Laboratory Tests Test 05/23/20 17:15 Lactic Acid Level 1.33 MMOL/L (0.50-2.00) Progress/Results/Core Measures Results/Orders Lab Results Laboratory Tests Test 05/23/20 17:05 05/23/20 17:15 05/23/20 17:51 Range/Units White Blood Count 16.8 H 4.3-11.0 10^3/uL Red Blood Count 5.17 4.35-5.85 10^6/uL Hemoglobin 15.3 13.3-17.7 G/DL Hematocrit 42 40-54 % Mean Corpuscular Volume 82 80-99 FL Mean Corpuscular Hemoglobin 30 25-34 PG Mean Corpuscular Hemoglobin Concent 36 32-36 G/DL Red Cell Distribution Width 12.8 10.0-14.5 % Platelet Count 490 H 130-400 10^3/uL Mean Platelet Volume 9.0 7.4-10.4 FL Immature Granulocyte % (Auto) 1 % Neutrophils (%) (Auto) 72 42-75 % Lymphocytes (%) (Auto) 13 12-44 % Monocytes (%) (Auto) 10 0-12 % Eosinophils (%) (Auto) 4 0-10 % Basophils (%) (Auto) 1 0-10 % Neutrophils # (Auto) 12.1 H 1.8-7.8 X 10^3 Lymphocytes # (Auto) 2.1 1.0-4.0 X 10^3 Monocytes # (Auto) 1.7 H 0.0-1.0 X 10^3 Eosinophils # (Auto) 0.7 H 0.0-0.3 10^3/uL Basophils # (Auto) 0.1 0.0-0.1 10^3/uL Immature Granulocyte # (Auto) 0.1 0.0-0.1 10^3/uL Neutrophils % (Manual) 30 % Lymphocytes % (Manual) 21 % Monocytes % (Manual) 3 % Eosinophils % (Manual) 3 % Basophils % (Manual) 0 % Metamyelocytes % 1 % Band Neutrophils 41 % Blood Morphology Comment NORMAL Sodium Level 129 L 135-145 MMOL/L Potassium Level 3.3 L 3.6-5.0 MMOL/L Chloride Level 93 L 98-107 MMOL/L Carbon Dioxide Level 22 21-32 MMOL/L Anion Gap 14 5-14 MMOL/L Blood Urea Nitrogen 8 7-18 MG/DL Creatinine 0.97 0.60-1.30 MG/DL Estimat Glomerular Filtration Rate > 60 BUN/Creatinine Ratio 8 Glucose Level 160 H 70-105 MG/DL Calcium Level 8.6 8.5-10.1 MG/DL Corrected Calcium 9.0 8.5-10.1 MG/DL Total Bilirubin 0.5 0.1-1.0 MG/DL Aspartate Amino Transf (AST/SGOT) 15 5-34 U/L Alanine Aminotransferase (ALT/SGPT) 23 0-55 U/L Alkaline Phosphatase 75 40-136 U/L C-Reactive Protein 23.23 H <0.50 MG/DL Total Protein 6.9 6.4-8.2 GM/DL Albumin 3.5 3.2-4.5 GM/DL Lipase 207 H 8-78 U/L Lactic Acid Level 1.33 0.50-2.00 MMOL/L Urine Color YELLOW Urine Clarity CLEAR Urine pH 6.5 5-9 Urine Specific [place] <1.005 1.016-1.022 Urine Protein NEGATIVE NEGATIVE Urine Glucose (UA) NEGATIVE NEGATIVE Urine Ketones NEGATIVE NEGATIVE Urine Nitrite NEGATIVE NEGATIVE Urine Bilirubin NEGATIVE NEGATIVE Urine Urobilinogen 0.2 < = 1.0 MG/DL Urine Leukocyte Esterase NEGATIVE NEGATIVE Urine RBC (Auto) NEGATIVE NEGATIVE Urine RBC NONE /HPF Urine WBC 0-2 /HPF Urine Crystals NONE /LPF Urine Bacteria NONE /HPF Urine Casts NONE /LPF Urine Mucus NEGATIVE /LPF Urine Culture Indicated NO My Orders Orders - MANRIQUE,JOSE ANTONIO L DO Cbc With Automated Diff (05/23/20 17:03) Comprehensive Metabolic Panel (05/23/20 17:03) Lactic Acid Analyzer (05/23/20 17:03) Lipase (05/23/20 17:03) Ua Culture If Indicated (05/23/20 17:03) Crp Fs (05/23/20 17:03) Promethazine Injection (Phenergan Injec (05/23/20 17:03) Ondansetron Injection (Zofran Injectio (05/23/20 17:15) Lactated Ringers (Lr 1000 Ml Iv Solution (05/23/20 17:03) Acute Abd Series (05/23/20 17:03) Manual Differential (05/23/20 17:05) Lactated Ringers (Lr 1000 Ml Iv Solution (05/23/20 18:02) Methylprednisolone Sod Succ (Solu-Medrol (05/23/20 18:06) Medications Given in ED Current Medications Medications Dose Ordered Sig/Lynne Route Start Time Stop Time Status Last Admin Dose Admin Ondansetron HCl 4 mg ONCE ONCE IVP 05/23/20 17:15 05/23/20 17:16 DC 05/23/20 17:14 4 MG Vital Signs/I&O 05/23/20 17:20 Temp 36.4 Pulse 119 B/P (MAP) 140/79 (99) Pulse Ox 97 O2 Delivery Room Air Progress Progress Note : Time: 18:07 Progress Note Patient's labs and x-rays consistent with known diagnosis of colitis. Patient still has some antibiotics. I will give him some Solu-Medrol here in the ER and a couple days of prednisone to see if we dampen the inflammatory reaction of his colitis. Discussed with him the need to follow-up with his Jenny care provider and see a general surgeon for an outpatient EGD and colonoscopy. Patient's sodium and other labs are consistent with some mild dehydration secondary gave him 2 L of lactated Ringer's here in the ER. Patient stable and discharged home for further outpatient management Diagnostic Imaging Diagonstic Imaging: Xray Plain Films/CT/US/NM/MRI: abdomen Comments [facility], [place] NAME: MELISA KENDRICK [facility] REC#: [id number] PT STATUS: REG ER : 1975 PHYSICIAN: JOSE ANTONIO MANRIQUE DO ADMIT DATE: 05/23/20/ER FS Draft Date of Exam:05/23/20 ACUTE ABD SERIES EXAMINATION: Abdominal series and chest radiograph. HISTORY: Nausea and vomiting. COMPARISON: None available. FINDINGS: Cholecystectomy clips are seen. There is no free air in the upright abdominal radiograph. There is overall a paucity of bowel gas with featureless gas in the transverse colon. The lungs are clear. No edema. No pneumonia. No pleural effusion. No pneumothorax. Heart is normal in size. IMPRESSION: 1. Clear lungs. 2. There is a paucity of bowel gas with featureless gas present in the transverse colon. Findings can be seen with colitis. Dictated on workstation # [id number] Dict: 05/23/20 1757 Trans: 05/23/20 1800 LOCATED WITHIN [facility] [id number] Interpreted by: EDWAR GALEANO MD Electronically signed by: Departure Impression Primary Impression: Colitis Disposition: 01 HOME, SELF-CARE Condition: Stable Departure-Patient Inst. Referrals: DANA MARTINEZ DO (PCP) Primary Care Physician DAMIAN MARTINEZ DNP (Family) Primary Care Physician Patient Instructions: Colitis (DC) Add. Discharge Instructions: Follow-up with your primary care provider next week to arrange for a GI or Gen. surgery follow-up for a colonoscopy and a recheck in 2 days complaints All discharge instructions reviewed with patient and/or family. Voiced understanding. Scripts Prednisone (Prednisone) 20 Mg Tab 40 MG PO DAILY, #6 TAB 0 Refills Prov: JOSE ANTONIO MANRIQUE DO 05/23/20 JOSE ANTONIO MANRIQUE DO May 23, 2020 17:03
[2020-05-23] MEDS ORDERED: ONDANSETRON 4 MG/2 ML (SDV) Z0FRAN IVP ONE (17:15)
[2020-05-23 17:21] LABS: HEMOGLOBIN 15.3 G/DL (13.3-17.7); MEAN CORPUSCULAR HEMOGLOBIN 30 PG (25-34); WHITE BLOOD COUNT 16.8 10^3/uL (4.3-11.0)
[2020-05-23 17:22] LABS: BASOPHILS # (AUTO) 0.1 10^3/uL (0.0-0.1); BASOPHILS % (AUTO) 1 % (0-10); EOSINOPHILS # (AUTO) 0.7 10^3/uL (0.0-0.3); EOSINOPHILS % (AUTO) 4 % (0-10); HEMATOCRIT 42 % (40-54); LYMPHOCYTES # (AUTO) 2.1 X 10^3 (1.0-4.0); LYMPHOCYTES % (AUTO) 13 % (12-44); MEAN CORPUSCULAR HGB CONC 36 G/DL (32-36); MEAN CORPUSCULAR VOLUME 82 FL (80-99); MONOCYTES # (AUTO) 1.7 X 10^3 (0.0-1.0); MONOCYTES % (AUTO) 10 % (0-12); NEUTROPHILS # (AUTO) 12.1 X 10^3 (1.8-7.8); NEUTROPHILS % (AUTO) 72 % (42-75); PLATELET COUNT 490 10^3/uL (130-400)
[2020-05-23 17:41] LABS: POTASSIUM 3.3 MMOL/L (3.6-5.0); SODIUM 129 MMOL/L (135-145)
[2020-05-23 17:42] LABS: ALANINE AMINOTRANSFERASE 23 U/L (0-55); ALBUMIN 3.5 GM/DL (3.2-4.5); ALKALINE PHOSPHATASE 75 U/L (40-136); BILIRUBIN,TOTAL 0.5 MG/DL (0.1-1.0); BUN/CREATININE RATIO 8; CALCIUM 8.6 MG/DL (8.5-10.1); CARBON DIOXIDE 22 MMOL/L (21-32); CHLORIDE 93 MMOL/L (98-107); CREATININE SERUM 0.97 MG/DL (0.60-1.30); GFR ESTIMATED > 60; GLUCOSE 160 MG/DL (70-105); LIPASE 207 U/L (8-78); TOTAL PROTEIN 6.9 GM/DL (6.4-8.2)
[2020-05-23 17:47] LABS: BAND NEUTROPHILS 41 %; BASOPHILS % (MANUAL) 0 %; EOSINOPHILS % (MANUAL) 3 %; LYMPHOCYTES % (MANUAL) 21 %; METAMYELOCYTES % 1 %; MONOCYTES % (MANUAL) 3 %; NEUTROPHILS % (MANUAL) 30 %; RBC MORPH NORMAL
[2020-05-23 18:00] LABS: BILIRUBIN,URINE NEGATIVE (NEGATIVE); CLARITY,URINE CLEAR; COLOR,URINE YELLOW; GLUCOSE, URINE (UA) NEGATIVE (NEGATIVE); KETONES,URINE NEGATIVE (NEGATIVE); LEUKOCYTE ESTERASE ,URINE NEGATIVE (NEGATIVE); NITRITE,URINE NEGATIVE (NEGATIVE); PH,URINE 6.5 (5-9); PROTEIN,URINE NEGATIVE (NEGATIVE); WBC,URINE 0-2 /HPF
--- NOTE | 2020-05-23 18:00 | Diagnostic Imaging Report ---
EXAMINATION: Abdominal series and chest radiograph. HISTORY: Nausea and vomiting. COMPARISON: None available. FINDINGS: Cholecystectomy clips are seen. There is no free air in the upright abdominal radiograph. There is overall a paucity of bowel gas with featureless gas in the transverse colon. The lungs are clear. No edema. No pneumonia. No pleural effusion. No pneumothorax. Heart is normal in size. IMPRESSION: 1. Clear lungs. 2. There is a paucity of bowel gas with featureless gas present in the transverse colon. Findings can be seen with colitis. Dictated by: Dictated on workstation # [id number]
[2020-05-23] MEDS ORDERED: methylPREDNISolone 125 MG (Solu-MEDROL) VIAL IV STA (18:06)
[2020-05-23] MEDS ORDERED: PRD20T PO (18:09)
[2020-05-23 18:29] VITALS: BP 124/62
== END 2020-05-23 18:41 | disposition home or self-care (01) ==
LOC: EDUNIT# 16:49 → ER FS 16:54
DX: K52.9 Noninfective gastroenteritis and colitis, unspecified (principal); K21.9 Gastro-esophageal reflux disease without esophagitis; F41.9 Anxiety disorder, unspecified; Z87.891 Personal history of nicotine dependence; Z88.0 Allergy status to penicillin; Z20.828 Contact with and (suspected) exposure to other viral communicable diseases; Z79.52 Long term (current) use of systemic steroids
CPT/HCPCS: 36415; 74022; 80053; 81000; 83605; 83690; 85007; 85027; 86141

== ENCOUNTER 2020-05-25 12:10 | Emergency (ER) | payer BC ==
[~2020-05-25] VITALS: Ht 182.8 cm; Wt 108.8 kg
[~2020-05-25 12:10] MED LIST changes: +PRD20T PO
[2020-05-25 13:14] LABS: ALBUMIN 3.5 GM/DL (3.2-4.5)
[2020-05-25 13:15] LABS: CHLORIDE 97 MMOL/L (98-107); POTASSIUM 3.6 MMOL/L (3.6-5.0); SODIUM 129 MMOL/L (135-145)
[2020-05-25 13:16] LABS: CALCIUM 8.8 MG/DL (8.5-10.1)
[2020-05-25 13:17] LABS: GLUCOSE 111 MG/DL (70-105); TOTAL PROTEIN 6.9 GM/DL (6.4-8.2)
[2020-05-25 13:18] LABS: BASOPHILS # (AUTO) 0.1 10^3/uL (0.0-0.1); BASOPHILS % (AUTO) 1 % (0-10); CARBON DIOXIDE 20 MMOL/L (21-32); EOSINOPHILS # (AUTO) 0.2 10^3/uL (0.0-0.3); EOSINOPHILS % (AUTO) 1 % (0-10); HEMATOCRIT 43 % (40-54); HEMOGLOBIN 15.1 g/dL (13.3-17.7); LYMPHOCYTES # (AUTO) 1.2 10^3/uL (1.0-4.0); LYMPHOCYTES % (AUTO) 7 % (12-44); MEAN CORPUSCULAR HEMOGLOBIN 30 pg (25-34); MEAN CORPUSCULAR HGB CONC 35 g/dL (32-36); MEAN CORPUSCULAR VOLUME 83 fL (80-99); MEAN PLATELET VOLUME 9.3 fL (9.0-12.2); MONOCYTES # (AUTO) 1.3 10^3/uL (0.0-1.0); MONOCYTES % (AUTO) 8 % (0-12); NEUTROPHILS # (AUTO) 13.6 10^3/uL (1.8-7.8); NEUTROPHILS % (AUTO) 83 % (42-75); PLATELET COUNT 496 10^3/uL (130-400); WHITE BLOOD COUNT 16.5 10^3/uL (4.3-11.0)
[2020-05-25 13:19] LABS: BILIRUBIN,TOTAL 0.9 MG/DL (0.1-1.0)
[2020-05-25 13:21] LABS: ALKALINE PHOSPHATASE 76 U/L (40-136); CREATININE SERUM 0.91 MG/DL (0.60-1.30); GFR ESTIMATED > 60
[2020-05-25 13:22] LABS: BUN/CREATININE RATIO 11
[2020-05-25 13:24] LABS: ALANINE AMINOTRANSFERASE 29 U/L (0-55)
[2020-05-25] MEDS ORDERED: LOPERAMIDE 2 MG (IMODIUM) TABLET PO ONE (13:30)
[2020-05-25] MEDS ORDERED: NS IV 1000 ML 1,000 ML IV SCH (13:30)
[2020-05-25] MEDS ORDERED: ONDANSETRON 4 MG/2 ML (SDV) Z0FRAN IVP ONE (13:30)
--- NOTE | 2020-05-25 13:31 | ED GI ---
General Chief Complaint: Abdominal/GI Problems Stated Complaint: BLOODY DIARRHEA/VOMITING Nursing Triage Note: PT TO RM 3 BY WHEELCHAIR WITH COMPLAINT OF ABD PAIN AND DIARRHEA/BLOOD IN STOOL. HAS BEEN SEEN BY PCP, AND [facility] TWICE. SYMPTOMS HAVE BEEN ONGOING FOR 12 DAYS. Sepsis Screen: No Definite Risk Source of Information: Patient Exam Limitations: No Limitations History of Present Illness Date Seen by Provider: May 25, 2020 Time Seen by Provider: 13:29 Initial Comments To ER by wheelchair with complaints of recurrent abdominal pain and diarrhea that is red in color. He has been drinking red Gatorade and orange electrolyte replacement drink. Symptoms began about 2 weeks ago initially. He followed up with Giuliana Avelar and was given an antibiotic but failed to improve symptoms. He had a Covid test which was negative. He then went to [place] and had a CT scan which showed colitis. They did stool cultures and he was given Zithromax for 5 days. That failed to improve symptoms as well. He has not had any Imodium. He has persistent abdominal cramping and cold sweats. His stool cultures including C. difficile done here were negative. He was given predn isone and had some yesterday and today. Timing/Duration: 1-2 Days Severity/Quality: Cramping Radiation: No Radiation Activities at Onset: None Associated Symptoms: Denies Symptoms Allergies and Home Medications Allergies Coded Allergies: Penicillins (Verified Allergy, Unknown, 11/16/18) Home Medications Azithromycin 500 Mg Tablet, 500 MG PO DAILY Prescribed by: DAHLIA MELGAR on 05/20/20 1337 Diazepam 2 Mg Tablet, 2 MG PO Q6H, (Reported) Doxycycline Hyclate 100 Mg Tablet, 100 MG PO PRN, (Reported) Famotidine 10 Mg Tablet, 10 MG PO BID, (Reported) Hydrocodone Bit/Acetaminophen 1 Tab Tab, 1 TAB PO Q6H PRN for ABDOMINAL PAIN Prescribed by: EUGENE MARCOS on 11/16/18 1424 Ibuprofen 800 Mg Tablet, 800 MG PO PRN PRN for PAIN-MILD, (Reported) Loperamide HCl 2 Mg Tablet, 2 MG PO TID Prescribed by: RAMON DANIELS on 05/25/20 1533 Ondansetron 8 Mg Tab.rapdis, 8 MG PO Q6H PRN for NAUSEA/VOMITING Prescribed by: RAMON DANIELS on 05/25/20 1533 Prednisone 20 Mg Tab, 40 MG PO DAILY Prescribed by: JOSE ANTONIO MANRIQUE on 05/23/20 1809 Patient Home Medication List Home Medication List Reviewed: Yes Review of Systems Review of Systems Constitutional: see HPI EENTM: No Symptoms Reported Respiratory: No Symptoms Reported Cardiovascular: No Symptoms Reported Gastrointestinal: See HPI, Abdominal Pain, Diarrhea, Nausea Genitourinary: No Symptoms Reported Musculoskeletal: no symptoms reported Skin: no symptoms reported Psychiatric/Neurological: No Symptoms Reported Endocrine: No Symptoms Reported Hematologic/Lymphatic: No Symptoms Reported Past Rcyoewk-Mrttga-Lrmpcy Hx Patient Social History Alcohol Use: Occasionally Uses Number of Drinks Today: AA Alcohol Beverage of Choice: Beer Recreational Drug Use: No Type Used: Smokeless Tobacco Former Smoker, Quit: Jan 17, 2003 2nd Hand Smoke Exposure: No Recent Foreign Travel: No Contact w/Someone Who Travel: No Recent Infectious Disease Expo: No Recent Hopitalizations: No Immunizations Up To Date Tetanus Booster (TDap): Unknown Seasonal Allergies Seasonal Allergies: No Past Medical History Surgeries: Yes Gallbladder Respiratory: No Cardiac: No Neurological: No Genitourinary: No Gastrointestinal: No Gastroesophageal Reflux Musculoskeletal: No Endocrine: No HEENT: No Cancer: No Psychosocial: No Anxiety Integumentary: No Blood Disorders: Yes ([place] Spotted Fever) Physical Exam Vital Signs Vital Signs - First Documented 05/25/20 12:40 Temp 37.9 Pulse 123 Resp 20 B/P (MAP) 135/88 (104) Pulse Ox 96 O2 Delivery Room Air Capillary Refill : Less Than 3 Seconds Height/Weight/BMI Height: 6'0" Weight: 246lbs. 0.0oz. 111.320681tb; 32.00 BMI Method:Stated General Appearance: WD/WN, no apparent distress Neck: non-tender, full range of motion Respiratory: lungs clear, normal breath sounds, no respiratory distress, no accessory muscle use Gastrointestinal: normal bowel sounds, non tender, soft Extremities: normal range of motion, non-tender Neurologic/Psychiatric: alert, normal mood/affect, oriented x 3 Skin: normal color, warm/dry Progress/Results/Core Measures Results/Orders Lab Results Laboratory Tests Test 05/25/20 12:53 Range/Units White Blood Count 16.5 H 4.3-11.0 10^3/uL Red Blood Count 5.12 4.30-5.52 10^6/uL Hemoglobin 15.1 13.3-17.7 g/dL Hematocrit 43 40-54 % Mean Corpuscular Volume 83 80-99 fL Mean Corpuscular Hemoglobin 30 25-34 pg Mean Corpuscular Hemoglobin Concent 35 32-36 g/dL Red Cell Distribution Width 12.5 10.0-14.5 % Platelet Count 496 H 130-400 10^3/uL Mean Platelet Volume 9.3 9.0-12.2 fL Immature Granulocyte % (Auto) 1 % Neutrophils (%) (Auto) 83 H 42-75 % Lymphocytes (%) (Auto) 7 L 12-44 % Monocytes (%) (Auto) 8 0-12 % Eosinophils (%) (Auto) 1 0-10 % Basophils (%) (Auto) 1 0-10 % Neutrophils # (Auto) 13.6 H 1.8-7.8 10^3/uL Lymphocytes # (Auto) 1.2 1.0-4.0 10^3/uL Monocytes # (Auto) 1.3 H 0.0-1.0 10^3/uL Eosinophils # (Auto) 0.2 0.0-0.3 10^3/uL Basophils # (Auto) 0.1 0.0-0.1 10^3/uL Immature Granulocyte # (Auto) 0.1 0.0-0.1 10^3/uL Sodium Level 129 L 135-145 MMOL/L Potassium Level 3.6 3.6-5.0 MMOL/L Chloride Level 97 L 98-107 MMOL/L Carbon Dioxide Level 20 L 21-32 MMOL/L Anion Gap 12 5-14 MMOL/L Blood Urea Nitrogen 10 7-18 MG/DL Creatinine 0.91 0.60-1.30 MG/DL Estimat Glomerular Filtration Rate > 60 BUN/Creatinine Ratio 11 Glucose Level 111 H 70-105 MG/DL Calcium Level 8.8 8.5-10.1 MG/DL Corrected Calcium 9.2 8.5-10.1 MG/DL Total Bilirubin 0.9 0.1-1.0 MG/DL Aspartate Amino Transf (AST/SGOT) 19 5-34 U/L Alanine Aminotransferase (ALT/SGPT) 29 0-55 U/L Alkaline Phosphatase 76 40-136 U/L Total Protein 6.9 6.4-8.2 GM/DL Albumin 3.5 3.2-4.5 GM/DL My Orders Orders - RAMON DANIELS APRN Ondansetron Injection (Zofran Injectio (05/25/20 13:30) Ns Iv 1000 Ml (Sodium Chloride 0.9%) (05/25/20 13:30) Loperamide Tablet (Imodium Tablet) (05/25/20 13:30) Iohexol Injection (Omnipaque 350 Mg/Ml 1 (05/25/20 14:15) Received Contrast (Hold Metformin- Contr (05/25/20 14:15) Ns (Ivpb) (Sodium Chloride 0.9% Ivpb Bag (05/25/20 14:15) Ct Abdomen/Pelvis Wo (05/25/20 14:38) Medications Given in ED Current Medications Medications Dose Ordered Sig/Lynne Route Start Time Stop Time Status Last Admin Dose Admin Loperamide HCl 4 mg ONCE ONCE PO 05/25/20 13:30 05/25/20 13:31 DC 05/25/20 13:35 4 MG Ondansetron HCl 4 mg ONCE ONCE IVP 05/25/20 13:30 05/25/20 13:31 DC 05/25/20 13:35 4 MG Vital Signs/I&O 05/25/20 12:40 Temp 37.9 Pulse 123 Resp 20 B/P (MAP) 135/88 (104) Pulse Ox 96 O2 Delivery Room Air Blood Pressure Mean: 104 Departure Communication (Admissions) 2781-had a long discussion with him. He will follow-up with Dr. Abrams who has done a scope on him before. He will call tomorrow. He states that at about 530 or 6 PM every night his mid back starts to hurt where he had a previous fracture and the pain continues through the night along with very persistent diarrhea. I will give him some hydrocodone to take at about 5 PM to help with that pain and to slow down his bowels. I talked with him about not mixing the hydrocodone with the Imodium. He agrees to take the Imodium during the day and hydrocodone at night. Impression Primary Impression: Colitis Disposition: 01 HOME, SELF-CARE Condition: Stable Departure-Patient Inst. Decision time for Depature: 15:31 Referrals: DANA AVELAR DO (PCP) Primary Care Physician DAMIAN AVELAR DNP (Family) Primary Care Physician COLBY ABRAMS MD Patient Instructions: No Instuctions Given Add. Discharge Instructions: 1. Avoid NSAIDs like ibuprofen as these may further upset the nausea and the upper abdominal discomfort that you are having. Avoid any red-colored drinks as these can turn your stool red. Your CAT scan today is fairly similar to 5 days ago showing some mild inflammation of the colon. Take the Imodium as directed. Nausea medication as directed. Call one of the surgeons listed tomorrow to make an appointment to be seen to schedule a colonoscopy. 1. Take the loperamide (Imodium once in the morning and once in the early afternoon. Take one of the hydrocodone pills at about 5 PM (since your back pain and diarrhea seems to get worse at around 530 or 6). Start your diet with plenty of fluids and BRAT bananas rice applesauce and toast. All discharge instructions reviewed with patient and/or family. Voiced understanding. Scripts Ondansetron (Ondansetron Odt) 8 Mg Tab.rapdis 8 MG PO Q6H PRN for NAUSEA/VOMITING, #14 TAB . Prov: RAMON DANIELS APRN 05/25/20 Loperamide HCl (Imodium A-D) 2 Mg Tablet 2 MG PO TID, #10 TAB . Prov: RAMON DANIELS APRN 05/25/20 Hydrocodone/Acetaminophen (Hydrocodone-Acetamin 5-325 mg) 1 Each Tablet 1 EACH PO Q6H PRN for PAIN-MODERATE (5-7), #14 TAB Prov: RAMON DANIELS APRN 05/25/20 Copy Copies To 1: COLBY ABRAMS MD; DANA AVELAR PETER J APRN May 25, 2020 13:31
[2020-05-25] MEDS ORDERED: NS 100 ML (IVPB) BAG IV ONE (14:15)
[2020-05-25] MEDS ORDERED: HOLD METFORMIN - RECEIVED CONTRAST 20 ML VIAL IV SCH (14:15)
[2020-05-25] MEDS ORDERED: IOHEXOL 350 MG/ML 100 ML (OMNIPAQUE 350) VIAL IV ONE (14:15)
--- NOTE | 2020-05-25 15:19 | Diagnostic Imaging Report ---
PROCEDURE: CT abdomen and pelvis without contrast. TECHNIQUE: Multiple contiguous axial images were obtained through the abdomen and pelvis without the use of intravenous contrast. Auto Exposure Controls were utilized during the CT exam to meet ALARA standards for radiation dose reduction. DATE: May 25, 2020. COMPARISON: Abdominal radiographs May 23, 2020. CT abdomen and pelvis May 20, 2020. INDICATION: 45-year-old male, abdominal pain. Diarrhea. FINDINGS: There are limitations for evaluation of the abdominal organs, neoplastic processes, abscess, and limited evaluation of the vasculature relating to the lack of intravenous contrast. There are very mild linear opacities in the left lower lobe consistent with atelectasis. The heart is not enlarged. There is no pericardial effusion. The liver is unremarkable in size and contour. The patient is status post cholecystectomy. There is no intrahepatic or extrahepatic bile duct dilation. The main pancreatic duct is not abnormally dilated. Limited noncontrast assessment of the pancreatic parenchyma is unremarkable. The spleen is unremarkable in size. The adrenal glands are unremarkable. There is a low-attenuation left renal lesion on axial image 41 which measures 2.6 cm in size with internal attenuation of 6 Hounsfield units which is diagnostic for a benign renal cyst. The urinary collecting systems are not distended. There is no identified renal or ureteral stone. The urinary bladder is unremarkable. There are pelvic calcifications compatible with phleboliths. There is very mild wall thickening of the left colon with mild adjacent inflammatory stranding. There is minimal additional wall thickening of the colon. There is mild to moderate distention of the transverse colon. There is no evidence to suggest acute appendicitis. There is no free intraperitoneal air. There is no drainable fluid collection. There is no free pelvic fluid. There are atherosclerotic calcifications. There is no identified abnormally enlarged lymph node in the abdomen or pelvis meeting CT size criteria for adenopathy. There is no identified acute bony abnormality. IMPRESSION: CT abdomen and pelvis: 1. Mild wall thickening of the left transverse colon and minimal additional wall thickening of the colon most likely relating to a nonspecific colitis. Infectious and inflammatory etiologies are favored. There is mild dilation of the transverse colon without clear evidence of a bowel obstruction. Findings are fairly similar to May 20, 2020. 2. Benign left renal cyst. Dictated by: Dictated on workstation # [id number]
[2020-05-25] MEDS ORDERED: LOPE-134 PO ×2 (15:33→15:48)
[2020-05-25] MEDS ORDERED: ONDA8TAB13 PO ×2 (15:33→15:48)
[2020-05-25] MEDS ORDERED: ACHD5005 PO (15:47)
[2020-05-25 15:55] VITALS: BP 138/89
== END 2020-05-25 15:55 | disposition home or self-care (01) ==
LOC: EDUNIT# 12:10 → ER 12:13
DX: K52.9 Noninfective gastroenteritis and colitis, unspecified (principal); K21.9 Gastro-esophageal reflux disease without esophagitis; F41.9 Anxiety disorder, unspecified; Z87.891 Personal history of nicotine dependence; Z88.0 Allergy status to penicillin; Z79.52 Long term (current) use of systemic steroids
CPT/HCPCS: 36415; 74176; 80053; 85025

== ENCOUNTER 2020-05-27 21:18 | Inpatient (IN) | payer BC ==
[~2020-05-27] VITALS: Ht 182.9 cm; Wt 122.7 kg
[~2020-05-27 21:18] MED LIST changes: +LOPE-134 PO; +ONDA8TAB13 PO
[2020-05-27] MEDS ORDERED: LACTATED RINGERS 1,000 ML IV ONE (21:20)
[2020-05-27] MEDS ORDERED: metroNIDAZOLE 500 MG (FLAGYL) TAB PO STA (21:32)
[2020-05-27] MEDS ORDERED: LEVOFLOXACIN 750 MG/150 ML IV 150 ML IV STA (21:32)
[2020-05-27 21:33] LABS: WHITE BLOOD COUNT 16.9 10^3/uL (4.3-11.0)
[2020-05-27 21:34] LABS: BASOPHILS % (AUTO) 0 % (0-10); EOSINOPHILS % (AUTO) 1 % (0-10); HEMATOCRIT 40 % (40-54); HEMOGLOBIN 13.9 G/DL (13.3-17.7); LYMPHOCYTES % (AUTO) 6 % (12-44); MEAN CORPUSCULAR HEMOGLOBIN 30 PG (25-34); MEAN CORPUSCULAR HGB CONC 35 G/DL (32-36); MEAN CORPUSCULAR VOLUME 84 FL (80-99); MONOCYTES % (AUTO) 12 % (0-12); NEUTROPHILS % (AUTO) 79 % (42-75); PLATELET COUNT 452 10^3/uL (130-400)
--- NOTE | 2020-05-27 21:36 | ED Abdominal Pain ---
General Chief Complaint: Abdominal/GI Problems Stated Complaint: ABD PAIN Source of Information: Patient Exam Limitations: No Limitations History of Present Illness Date Seen by Provider: May 27, 2020 Time Seen by Provider: 21:28 Initial Comments 45-year-old male presents with abdominal pain. Patient has been seen in the ER on 05/20, 05/23, 05/[address] was [address] Reyes yesterday on 05/26. Patient has had 2 CAT scans at that time span that shows a colitis. Patient was started on Levaquin and Flagyl by Dr. Reyes yesterday since there is no surgical need at this time. Patient presents because he is "dehydrated" states he still having a hard time taking in fluids. Patient symptoms were going on for a couple weeks. Patient has had a course of Flagyl and another antibiotic. Allergies and Home Medications Allergies Coded Allergies: Penicillins (Verified Allergy, Unknown, 11/16/18) Home Medications Azithromycin 500 Mg Tablet, 500 MG PO DAILY Prescribed by: DAHLIA MELGAR on 05/20/20 1337 Diazepam 2 Mg Tablet, 2 MG PO Q6H, (Reported) Doxycycline Hyclate 100 Mg Tablet, 100 MG PO PRN, (Reported) Famotidine 10 Mg Tablet, 10 MG PO BID, (Reported) Hydrocodone Bit/Acetaminophen 1 Tab Tab, 1 TAB PO Q6H PRN for ABDOMINAL PAIN Prescribed by: EUGENE MARCOS on 11/16/18 1424 Hydrocodone/Acetaminophen 1 Each Tablet, 1 EACH PO Q6H PRN for PAIN-MODERATE (5- 7) Prescribed by: RAMON DANIELS on 05/25/20 1548 Ibuprofen 800 Mg Tablet, 800 MG PO PRN PRN for PAIN-MILD, (Reported) Loperamide HCl 2 Mg Tablet, 2 MG PO TID . Prescribed by: RAMON DANIELS on 05/25/20 1548 Ondansetron 8 Mg Tab.rapdis, 8 MG PO Q6H PRN for NAUSEA/VOMITING . Prescribed by: RAMON DANIELS on 05/25/20 154 Prednisone 20 Mg Tab, 40 MG PO DAILY Prescribed by: JOSE ANTONIO MANRIQUE on 05/23/20 8533 Patient Home Medication List Home Medication List Reviewed: Yes Review of Systems Review of Systems Constitutional: No chills, No fever Respiratory: Denies Cough, Denies Shortness of Air Cardiovascular: Denies Chest Pain, Denies Palpitations Gastrointestinal: Abdominal Pain, Diarrhea, Poor Fluid Intake Musculoskeletal: no symptoms reported Skin: no symptoms reported Psychiatric/Neurological: No Symptoms Reported Endocrine: No Symptoms Reported Hematologic/Lymphatic: No Symptoms Reported Past Owkkzcq-Mpnosm-Oyyjmp Hx Past Med/Social Hx: Reviewed Nursing Past Med/Soc Hx Patient Social History Alcohol Use: Occasionally Uses Number of Drinks Today: AA Alcohol Beverage of Choice: Beer Recreational Drug Use: No Type Used: Smokeless Tobacco Former Smoker, Quit: Jan 17, 2003 2nd Hand Smoke Exposure: No Recent Hopitalizations: No Physical Abuse: No Sexual Abuse: No Mistreated: No Fear: No Immunizations Up To Date Tetanus Booster (TDap): Unknown Seasonal Allergies Seasonal Allergies: No Past Medical History Surgeries: Yes Gallbladder Respiratory: No Cardiac: No Neurological: No Genitourinary: No Gastrointestinal: No Gastroesophageal Reflux Musculoskeletal: No Endocrine: No HEENT: No Cancer: No Psychosocial: No Anxiety Integumentary: No Blood Disorders: Yes ([place] Spotted Fever) Physical Exam Vital Signs Vital Signs - First Documented 05/27/20 21:30 Temp 37.0 Pulse 109 Resp 18 B/P (MAP) 121/74 (90) Pulse Ox 98 O2 Delivery Room Air Capillary Refill : Height/Weight/BMI Height: 6'0" Weight: 246lbs. 0.0oz. [id number]; 32.00 BMI Method:Stated General Appearance: moderate distress Respiratory: chest non-tender, lungs clear Cardiovascular: normal peripheral pulses, regular rate, rhythm Gastrointestinal: soft, tenderness Extremities: normal range of motion, non-tender Neurologic/Psychiatric: grape grower II-XII nml as tested, alert, normal mood/affect, oriented x 3 Skin: normal color, warm/dry Focused Exam Lactate Level 05/27/20 21:20: Lactic Acid Level 1.83 Lactic Acid Level Laboratory Tests Test 05/27/20 21:20 Lactic Acid Level 1.83 MMOL/L (0.50-2.00) Progress/Results/Core Measures Results/Orders Lab Results Laboratory Tests Test 05/27/20 21:15 05/27/20 21:20 Range/Units White Blood Count 16.9 H 4.3-11.0 10^3/uL Red Blood Count 4.68 4.35-5.85 10^6/uL Hemoglobin 13.9 13.3-17.7 G/DL Hematocrit 40 40-54 % Mean Corpuscular Volume 84 80-99 FL Mean Corpuscular Hemoglobin 30 25-34 PG Mean Corpuscular Hemoglobin Concent 35 32-36 G/DL Red Cell Distribution Width 13.1 10.0-14.5 % Platelet Count 452 H 130-400 10^3/uL Mean Platelet Volume 9.0 7.4-10.4 FL Immature Granulocyte % (Auto) 1 % Neutrophils (%) (Auto) 79 H 42-75 % Lymphocytes (%) (Auto) 6 L 12-44 % Monocytes (%) (Auto) 12 0-12 % Eosinophils (%) (Auto) 1 0-10 % Basophils (%) (Auto) 0 0-10 % Neutrophils # (Auto) 13.3 H 1.8-7.8 X 10^3 Lymphocytes # (Auto) 1.1 1.0-4.0 X 10^3 Monocytes # (Auto) 2.0 H 0.0-1.0 X 10^3 Eosinophils # (Auto) 0.2 0.0-0.3 10^3/uL Basophils # (Auto) 0.0 0.0-0.1 10^3/uL Immature Granulocyte # (Auto) 0.2 H 0.0-0.1 10^3/uL Neutrophils % (Manual) 62 % Lymphocytes % (Manual) 4 % Monocytes % (Manual) 4 % Eosinophils % (Manual) 0 % Basophils % (Manual) 0 % Metamyelocytes % 3 % Band Neutrophils 25 % Atypical Lymphocytes 2 % Sodium Level 128 L 135-145 MMOL/L Potassium Level 4.1 3.6-5.0 MMOL/L Chloride Level 94 L 98-107 MMOL/L Carbon Dioxide Level 22 21-32 MMOL/L Anion Gap 12 5-14 MMOL/L Blood Urea Nitrogen 11 7-18 MG/DL Creatinine 0.91 0.60-1.30 MG/DL Estimat Glomerular Filtration Rate > 60 BUN/Creatinine Ratio 12 Glucose Level 108 H 70-105 MG/DL Calcium Level 7.8 L 8.5-10.1 MG/DL Corrected Calcium 9.0 8.5-10.1 MG/DL Magnesium Level 1.9 1.6-2.4 MG/DL Total Bilirubin 2.3 H 0.1-1.0 MG/DL Aspartate Amino Transf (AST/SGOT) 30 5-34 U/L Alanine Aminotransferase (ALT/SGPT) 32 0-55 U/L Alkaline Phosphatase 118 40-136 U/L C-Reactive Protein 29.13 H <0.50 MG/DL Total Protein 5.9 L 6.4-8.2 GM/DL Albumin 2.5 L 3.2-4.5 GM/DL Lipase 13 8-78 U/L Lactic Acid Level 1.83 0.50-2.00 MMOL/L My Orders Orders - SHAKA MANRIQUEVOR L DO Cbc With Automated Diff (05/27/20 21:22) Comprehensive Metabolic Panel (05/27/20 21:22) Lactic Acid Analyzer (05/27/20 21:22) Lipase (05/27/20 21:22) Crp Fs (05/27/20 21:22) Acute Abd Series (05/27/20 21:22) Lactated Ringers (Lr 1000 Ml Iv Solution (05/27/20 21:20) Magnesium (05/27/20 21:29) Blood Culture (05/27/20 21:30) Levofloxacin 750 Mg/150 Ml Iv (Levaquin (05/27/20 21:32) Metronidazole Tablet (Flagyl Tablet) (05/27/20 21:32) Manual Differential (05/27/20 21:15) Medications Given in ED Current Medications Medications Dose Ordered Sig/Lynne Route Start Time Stop Time Status Last Admin Dose Admin Lactated Ringer's 1,000 ml @ ud STK-MED ONCE IV 05/27/20 21:20 05/27/20 21:24 DC 05/27/20 21:58 999 MLS/HR Vital Signs/I&O 05/27/20 21:30 Temp 37.0 Pulse 109 Resp 18 B/P (MAP) 121/74 (90) Pulse Ox 98 O2 Delivery Room Air Progress Progress Note : Progress Note Discussed with Dr. Reyes, he recommends admission for IV antibiotics, nothing by mouth tonight and advance is clear liquid diet starting tomorrow. He recommends admission to medicine since there is no surgical need at this time. He will need a scope in approximately 6 weeks after his symptoms clear. Diagnostic Imaging Diagonstic Imaging: Xray Plain Films/CT/US/NM/MRI: abdomen Comments [facility]. [place], [place] NAME: MELISA KENDRICK [facility] REC#: [id number] PT STATUS: REG ER : 1975 PHYSICIAN: JOSE ANTONIO MANRIQUE DO ADMIT DATE: 05/27/20/ER FS Draft Date of Exam:05/27/20 ACUTE ABD SERIES EXAMINATION: Abdominal series and chest radiograph HISTORY: Abdominal pain COMPARISON: 05/23/2020 FINDINGS: Colon is dilated and appears featureless. No dilated small bowel. Surgical clips are seen in the right upper quadrant. The lungs are clear. No edema. No pneumonia. No pleural effusion. No pneumothorax. Heart is normal in size. IMPRESSION: 1. Clear lungs. 2. Dilated and featureless colon suggestive of colitis. Dictated on workstation # [id number] Dict: 05/27/202145 Trans: 05/27/202148 [facility] [id number] Interpreted by: EDWAR GALEANO MD Electronically signed by: Departure Communication (Admissions) Time/Spoke to Admitting Phy: 22:04 IV fluids, IV antibiotics, Impression Primary Impression: Colitis Additional Impression: Dehydration Disposition: 30 STILL A PATIENT Condition: Stable Admissions Decision to Admit Reason: Admit from ER (General) Decision to Admit/Date: May 27, 2020 Time/Decision to Admit Time: 22:04 Departure-Patient Inst. Referrals: DANA MARTINEZ DO (PCP) Primary Care Physician DAMIAN MARTINEZ DNP (Family) Primary Care Physician JOSE ANTONIO MANRIQUE DO May 27, 2020 21:36
[2020-05-27 21:37] LABS: EOSINOPHILS # (AUTO) 0.2 10^3/uL (0.0-0.3); LYMPHOCYTES # (AUTO) 1.1 X 10^3 (1.0-4.0); NEUTROPHILS # (AUTO) 13.3 X 10^3 (1.8-7.8)
--- NOTE | 2020-05-27 21:49 | Diagnostic Imaging Report ---
EXAMINATION: Abdominal series and chest radiograph HISTORY: Abdominal pain COMPARISON: 05/23/2020 FINDINGS: Colon is dilated and appears featureless. No dilated small bowel. Surgical clips are seen in the right upper quadrant. The lungs are clear. No edema. No pneumonia. No pleural effusion. No pneumothorax. Heart is normal in size. IMPRESSION: 1. Clear lungs. 2. Dilated and featureless colon suggestive of colitis. Dictated by: Dictated on workstation # [email or web address]
[2020-05-27 21:53] LABS: SODIUM 128 MMOL/L (135-145)
[2020-05-27 21:54] LABS: ALANINE AMINOTRANSFERASE 32 U/L (0-55); ALKALINE PHOSPHATASE 118 U/L (40-136); BILIRUBIN,TOTAL 2.3 MG/DL (0.1-1.0); BUN/CREATININE RATIO 12; CALCIUM 7.8 MG/DL (8.5-10.1); CARBON DIOXIDE 22 MMOL/L (21-32); CHLORIDE 94 MMOL/L (98-107); CREATININE SERUM 0.91 MG/DL (0.60-1.30); GFR ESTIMATED > 60; GLUCOSE 108 MG/DL (70-105); POTASSIUM 4.1 MMOL/L (3.6-5.0); TOTAL PROTEIN 5.9 GM/DL (6.4-8.2)
[2020-05-27 21:55] LABS: ALBUMIN 2.5 GM/DL (3.2-4.5)
[2020-05-27 21:56] LABS: ATYPICAL LYMPHOCYTES 2 %; BAND NEUTROPHILS 25 %; BASOPHILS % (MANUAL) 0 %; EOSINOPHILS % (MANUAL) 0 %; LYMPHOCYTES % (MANUAL) 4 %; METAMYELOCYTES % 3 %; MONOCYTES % (MANUAL) 4 %; NEUTROPHILS % (MANUAL) 62 %
[2020-05-27 22:06] LABS: LIPASE 13 U/L (8-78)
--- NOTE | 2020-05-27 23:10 | NUR ---
room obtained for admission and ems and pt notified.
--- NOTE | 2020-05-28 00:15 | NUR ---
MELISA KENDRICK admitted to room 418-1, with an admitting diagnosis of COLITIS/DEHYDRATION, on 05/27/20 from [facility] via [facility], accompanied by STAFF.MELISA KENDRICK introduced to surroundings, call light, bed controls, phone, TV, temperature control, lights, meal times, smoking policy, visitor policy, side rail policy, bathrooms and showers. Patient Rights given to patient in the handbook. MELISA KENDRICK verbalizes understanding that [facility] is not responsible for the loss or damage to any personal effects or valuables that are kept in the patients possession during their hospitalization.
[2020-05-28] MEDS ORDERED: LACTATED RINGERS 1,000 ML IV ONE (00:24)
[2020-05-28 00:32] VITALS: BP 131/79
--- NOTE | 2020-05-28 00:37 | NUR ---
PT RATING PAIN 8/10. NO PAIN MEDS ORDERED. DR. ADAME AND DR. PADILLA NOTIFIED. NEW ORDERS RECEIVED.
[2020-05-28] MEDS: morphine INJ 4 MG/ML 1 ML (VIAL/SYRINGE) IVP PRN ×7 (01:10→21:34)
[2020-05-28] MEDS: LACTATED RINGERS 1,000 ML IV SCH ×4 (01:11→18:42)
[2020-05-28 04:07] VITALS: BP 130/75
[2020-05-28] MEDS: ONDANSETRON 4 MG/2 ML (SDV) Z0FRAN IV SCH ×3 (06:23→18:37)
[2020-05-28 06:36] LABS: BASOPHILS # (AUTO) 0.1 10^3/uL (0.0-0.1); BASOPHILS % (AUTO) 1 % (0-10); EOSINOPHILS # (AUTO) 0.1 10^3/uL (0.0-0.3); EOSINOPHILS % (AUTO) 1 % (0-10); HEMATOCRIT 37 % (40-54); HEMOGLOBIN 12.9 g/dL (13.3-17.7); LYMPHOCYTES # (AUTO) 1.3 10^3/uL (1.0-4.0); LYMPHOCYTES % (AUTO) 8 % (12-44); MEAN CORPUSCULAR HEMOGLOBIN 30 pg (25-34); MEAN CORPUSCULAR HGB CONC 35 g/dL (32-36); MEAN CORPUSCULAR VOLUME 84 fL (80-99); MEAN PLATELET VOLUME 9.2 fL (9.0-12.2); MONOCYTES # (AUTO) 1.8 10^3/uL (0.0-1.0); MONOCYTES % (AUTO) 12 % (0-12); NEUTROPHILS # (AUTO) 12.3 10^3/uL (1.8-7.8); NEUTROPHILS % (AUTO) 78 % (42-75); PLATELET COUNT 427 10^3/uL (130-400); WHITE BLOOD COUNT 15.9 10^3/uL (4.3-11.0)
[2020-05-28 06:50] LABS: ALBUMIN 2.6 GM/DL (3.2-4.5)
[2020-05-28 06:51] LABS: CHLORIDE 99 MMOL/L (98-107); POTASSIUM 3.6 MMOL/L (3.6-5.0); SODIUM 130 MMOL/L (135-145)
[2020-05-28 06:52] LABS: CALCIUM 7.8 MG/DL (8.5-10.1)
[2020-05-28 06:53] LABS: GLUCOSE 90 MG/DL (70-105); TOTAL PROTEIN 5.6 GM/DL (6.4-8.2)
[2020-05-28 06:54] LABS: CARBON DIOXIDE 17 MMOL/L (21-32)
[2020-05-28 06:55] LABS: BILIRUBIN,TOTAL 1.5 MG/DL (0.1-1.0)
[2020-05-28 06:56] LABS: ALKALINE PHOSPHATASE 106 U/L (40-136)
[2020-05-28 06:57] LABS: CREATININE SERUM 0.73 MG/DL (0.60-1.30); GFR ESTIMATED > 60
[2020-05-28 06:58] LABS: BUN/CREATININE RATIO 14
[2020-05-28 07:00] LABS: ALANINE AMINOTRANSFERASE 33 U/L (0-55)
--- NOTE | 2020-05-28 07:43 | Consultation - Surgery ---
CORINNE TAVARES MED STUDENT 05/28/20 0743: History of Present Illness History of Present Illness Patient Consulted On([place]/time) 05/28/20 07:38 Date Seen by Provider: May 28, 2020 Time Seen by Provider: 06:10 Reason for Visit: Abd pain, diarrhea History of Present Illness Pantera is a 45yo male being consulted for acute onset of abd pain and 3 week history of diarrhea. He said that 3 weeks ago, he started having multiple loose BM's, with intermittent bloody stools. Last night he started having severe abd pain over his whole abd, rating it a 10/10. He has tried Ibuprofen with no relief and received Morphine on the floor with minimal relief. Movement makes the pain worse, and nothing seems to improve the pain. He says that he felt feverish w/ chills overnight along with nausea and vomiting. Complains of chest discomfort that feels like his abd pushing up into his chest. Allergies and Home Medications Allergies Coded Allergies: Penicillins (Verified Allergy, Unknown, 11/16/18) Home Medications Diclofenac Sodium 100 Gm Gel..gram., 1 APPLIC TOP Q4H PRN for PAIN-BREAKTHROUGH, (Reported) APPLY TO FEET Hydrocodone/Acetaminophen 1 Each Tablet, 1 EACH PO Q6H PRN for PAIN-MODERATE (5- 7), (Reported) Hyoscyamine Sulfate 0.125 Mg Tablet, 0.125 MG PO Q6H, (Reported) Ibuprofen 200 Mg Capsule, 400 MG PO Q6H PRN for PAIN-MILD (1-4), (Reported) Levofloxacin 500 Mg Tablet, 500 MG PO DAILY, (Reported) FILLED 05-27-2020 #10/10 DAY SUPPLY Loperamide HCl 2 Mg Capsule, 2 MG PO TID PRN for DIARRHEA, (Reported) Metronidazole 500 Mg Tablet, 500 MG PO TID, (Reported) FILLED 05-26-2020 #30/10 DAY SUPPLY Ondansetron 8 Mg Tab.rapdis, 8 MG PO Q6H, (Reported) Patient Home Medication List Home Medication List Reviewed: Yes Past Goglxcg-Dnxfla-Fgvyds Hx Patient Social History Alcohol Use: Occasionally Uses Number of Drinks Today: AA Recreational Drug Use: No Former Smoker, Quit: Jan 17, 2003 Type Used: Smokeless Tobacco 2nd Hand Smoke Exposure: No Recent Foreign Travel: No Contact w/Someone Who Travel: No Recent Infectious Disease Expo: No Recent Hopitalizations: No Immunizations Up To Date Tetanus Booster (TDap): Unknown Seasonal Allergies Seasonal Allergies: No Surgeries History of Surgeries: Yes Surgeries: Gallbladder Respiratory History of Respiratory Disorde: No Cardiovascular History of Cardiac Disorders: No Neurological History of Neurological Disord: No Genitourinary History of Genitourinary Disor: No Gastrointestinal History of Gastrointestinal Di: Yes Gastrointestinal Disorders: Gastroesophageal Reflux Musculoskeletal History of Musculoskeletal Dis: No Endocrine History of Endocrine Disorders: No HEENT History of HEENT Disorders: No Cancer History of Cancer: No Psychosocial History of Psychiatric Problem: No Behavioral Health Disorders: Anxiety Integumentary History of Skin or Integumenta: No Blood Transfusions History of Blood Disorders: Yes ([place] Spotted Fever) Family Medical History Family Medial History: FH: HTN (hypertension) Review of Systems-General Constitutional: chills, fever EENTM: No hearing loss, No vision loss Respiratory: No cough, No short of breath Cardiovascular: No chest pain, No palpitations Gastrointestinal: abdominal pain (diffuse), diarrhea, heartburn, nausea, vomiting Genitourinary: No dysuria, No frequency, No hematuria Musculoskeletal: No muscle pain, No muscle stiffness, No muscle cramps Skin: No lesions, No rash Psychiatric/Neurological: Denies Headache, Denies Numbness, Denies Tingling Physical Exam-General Problems Physical Exam Vital Signs Vital Signs - First Documented 05/27/20 21:30 Temp 37.0 Pulse 109 Resp 18 B/P (MAP) 121/74 (90) Pulse Ox 98 O2 Delivery Room Air Capillary Refill : Less Than 3 Seconds General Appearance: WD/WN, mild distress, obese HEENT: PERRL/EOMI Neck: non-tender, full range of motion, supple, normal inspection Respiratory: chest non-tender, lungs clear, normal breath sounds, no respiratory distress, no accessory muscle use Cardiovascular: normal peripheral pulses, no edema, no gallop, no JVD, no murmur, tachycardia Gastrointestinal: normal bowel sounds, distended; No guarding, No rebound; tenderness Rectal: deferred Back: normal inspection, no CVA tenderness, no vertebral tenderness Extremities: normal range of motion, non-tender, normal inspection, no pedal edema, normal capillary refill Neurologic/Psychiatric: no motor/sensory deficits, alert, normal mood/affect, oriented x 3 Skin: normal color, warm/dry Lymphatic: no adenopathy Data Review Labs Laboratory Tests 05/27/20 21:15: White Blood Count 16.9H, Red Blood Count 4.68, Hemoglobin 13.9, Hematocrit 40, Mean Corpuscular Volume 84, Mean Corpuscular Hemoglobin 30, Mean Corpuscular Hemoglobin Concent 35, Red Cell Distribution Width 13.1, Platelet Count 452H, Mean Platelet Volume 9.0, Immature Granulocyte % (Auto) 1, Neutrophils (%) (Auto) 79H, Lymphocytes (%) (Auto) 6L, Monocytes (%) (Auto) 12, Eosinophils (%) (Auto) 1, Basophils (%) (Auto) 0, Neutrophils # (Auto) 13.3H, Lymphocytes # (Auto) 1.1, Monocytes # (Auto) 2.0H, Eosinophils # (Auto) 0.2, Basophils # (Auto) 0.0, Immature Granulocyte # (Auto) 0.2H, Neutrophils % (Manual) 62, Lymphocytes % (Manual) 4, Monocytes % (Manual) 4, Eosinophils % (Manual) 0, Basophils % (Manual) 0, Metamyelocytes % 3, Band Neutrophils 25, Atypical Lymphocytes 2, Sodium Level 128L, Potassium Level 4.1, Chloride Level 94L, Carbon Dioxide Level 22, Anion Gap 12, Blood Urea Nitrogen 11, Creatinine 0.91, Estimat Glomerular Filtration Rate > 60, BUN/Creatinine Ratio 12, Glucose Level 108H, Calcium Level 7.8L, Corrected Calcium 9.0, Magnesium Level 1.9, Total Bilirubin 2.3H, Aspartate Amino Transf (AST/SGOT) 30, Alanine Aminotransferase (ALT/SGPT) 32, Alkaline Phosphatase 118, C-Reactive Protein 29.13H, Total Protein 5.9L, Albumin 2.5L, Lipase 13 05/27/20 21:20: Lactic Acid Level 1.83 05/28/20 06:15: White Blood Count 15.9H, Red Blood Count 4.34, Hemoglobin 12.9L, Hematocrit 37L, Mean Corpuscular Volume 84, Mean Corpuscular Hemoglobin 30, Mean Corpuscular Hemoglobin Concent 35, Red Cell Distribution Width 12.7, Platelet Count 427H, Mean Platelet Volume 9.2, Immature Granulocyte % (Auto) 1, Neutrophils (%) (Auto) 78H, Lymphocytes (%) (Auto) 8L, Monocytes (%) (Auto) 12, Eosinophils (%) (Auto) 1, Basophils (%) (Auto) 1, Neutrophils # (Auto) 12.3H, Lymphocytes # (Auto) 1.3, Monocytes # (Auto) 1.8H, Eosinophils # (Auto) 0.1, Basophils # (Auto) 0.1, Immature Granulocyte # (Auto) 0.2H, Sodium Level 130L, Potassium Level 3.6, Chloride Level 99, Carbon Dioxide Level 17L, Anion Gap 14, Blood Urea Nitrogen 10, Creatinine 0.73, Estimat Glomerular Filtration Rate > 60, BUN/Creatinine Ratio 14, Glucose Level 90, Calcium Level 7.8L, Corrected Calcium 8.9, Total Bilirubin 1.5H, Aspartate Amino Transf (AST/SGOT) 21, Alanine Aminotransferase (ALT/SGPT) 33, Alkaline Phosphatase 106, Total Protein 5.6L, Albumin 2.6L Assessment/Plan Assessment/Plan Assessment/Plan Colitis Dehydration Leukocytosis - WBC 16.9 AAS shows signs of colitis Continue Abx, IV fluids Pain management, clear liquids, encourage IS/ambulation Continue to monitor VS/labs Clinical Quality Measures DVT/VTE Risk/Contraindication: Risk Factor Score Per Nursin RFS Level Per Nursing on Admit: 4+=Very High NELIA REYES DO 05/29/20 1226: History of Present Illness History of Present Illness History of Present Illness Consult requested by Dr. Chopra for colitis/abdominal. 45 year old male 3 weeks of diarrhea and worsening abdominal pain. Having small amount of blood at times he thinks with diarrhea. Couple bowel movements. 10/10 pain throughout abdomen. Difficult to get relief. Some chills he states and having nausea vomiting. Pain medication has helped slightly. Moving makes worse. Abdomen feels distended and making his chest uncomfortable. Recent ct scan abd/pelvis showing changes consistent with colitis and abd x ray showing some distention and changes of colon suggestive of colitis. Allergies and Home Medications Allergies Coded Allergies: Penicillins (Verified Allergy, Unknown, 11/16/18) Home Medications Diclofenac Sodium 100 Gm Gel..gram., 1 APPLIC TOP Q4H PRN for PAIN-BREAKTHROUGH, (Reported) APPLY TO FEET Hydrocodone/Acetaminophen 1 Each Tablet, 1 EACH PO Q6H PRN for PAIN-MODERATE (5- 7), (Reported) Hyoscyamine Sulfate 0.125 Mg Tablet, 0.125 MG PO Q6H, (Reported) Ibuprofen 200 Mg Capsule, 400 MG PO Q6H PRN for PAIN-MILD (1-4), (Reported) Levofloxacin 500 Mg Tablet, 500 MG PO DAILY, (Reported) FILLED 05-27-2020 #10/10 DAY SUPPLY Loperamide HCl 2 Mg Capsule, 2 MG PO TID PRN for DIARRHEA, (Reported) Metronidazole 500 Mg Tablet, 500 MG PO TID, (Reported) FILLED 05-26-2020 #30/10 DAY SUPPLY Ondansetron 8 Mg Tab.rapdis, 8 MG PO Q6H, (Reported) Patient Home Medication List Home Medication List Reviewed: Yes Past Ufmegjm-Kiolat-Czzjxd Hx Reviewed Nursing Assessment Reviewed/Agree w Nursing PMH: Yes Family Medical History Significant Family History: No Pertinent Family Hx Family Medial History: FH: HTN (hypertension) Review of Systems-General Constitutional: chills, fever EENTM: No hearing loss, No vision loss Respiratory: No cough, No short of breath Cardiovascular: No chest pain, No palpitations Gastrointestinal: abdominal pain (diffuse), diarrhea, heartburn, nausea, vomiting Genitourinary: No dysuria, No frequency, No hematuria Musculoskeletal: No muscle pain, No muscle stiffness, No muscle cramps Skin: No lesions, No rash Psychiatric/Neurological: Denies Headache, Denies Numbness, Denies Tingling All Other Systems Reviewed Negative Unless Noted: Yes (Negative excepted noted.) Physical Exam-General Problems Physical Exam General Appearance: WD/WN, mild distress, obese HEENT: PERRL/EOMI Neck: non-tender, supple Respiratory: chest non-tender, no respiratory distress, no accessory muscle use Cardiovascular: no edema, tachycardia Gastrointestinal: distended (mildly), tenderness (diffuse) Rectal: deferred Back: normal inspection, no CVA tenderness Extremities: normal range of motion, normal inspection, no pedal edema 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 Supervisory-Addendum Brief Verification & Attestation Participated in pt care: history, MDM, physical Personally performed: exam, history, MDM, supervision of care Care discussed with: Medical Student Procedures: n/a Results interpretation: Verified all documentation Verification and Attestation of Medical Student E/M Service A medical student performed and documented this service in my presence. I reviewed and verified all information documented by the medical student and made modifications to such information, when appropriate. I personally performed the physical exam and medical decision making. Nelia Reyes, May 28, 2020,12:33 CORINNE TAVARES MED STUDENT May 28, 2020 07:43 NELIA REYES DO May 29, 2020 12:26
[2020-05-28 08:15] VITALS: BP 121/72
[2020-05-28] MEDS: metroNIDAZOLE 500MG/100ML IVPB 100 ML IV SCH ×2 (08:33→20:27)
[2020-05-28] MEDS ORDERED: DICL100G31 TOP (10:14)
[2020-05-28] MEDS ORDERED: METR-145 PO (10:14)
[2020-05-28] MEDS ORDERED: HYOS-20 PO (10:14)
[2020-05-28] MEDS ORDERED: LEVO500T80 PO (10:14)
[2020-05-28] MEDS ORDERED: ONDA8TAB13 PO (10:14)
[2020-05-28] MEDS ORDERED: IBUP-2185 PO (10:14)
[2020-05-28] MEDS ORDERED: LOPE-175 PO (10:14)
[2020-05-28] MEDS ORDERED: ACHD5005 PO (10:14)
--- NOTE | 2020-05-28 10:15 | NUR ---
SPOKE WITH THE PT, CALLED HIS ([facility]) AND WENT THRU THE EXT MED HISTORY TO COMPLETE THE MED REC WHEN I TALKED WITH THE PT HE WANTED ME TO CALL HIS [facility] SINCE HE IS NOT SURE WHAT HE IS TAKING I CALLED [facility] AND SHE WAS ABLE TO TELL ME ALL HIS MEDICATIONS AND HOW HE TAKES EACH. ACCORDING TO [facility] THE PT HAS BEEN TAKING ZOFRAN ODT 8MG AND HYOSCYAMINE 0.125MG EVERY 6 HOURS SCHEDULED SO THE PT CAN EAT AND REST THE FOLLOWING MEDICATIONS ARE LISTED ON THE EXT MED HISTORY BUT THE PT IS NOT TAKING: PREDNISONE 20MG- RECENTLY PRESCRIBED BUT PT REFUSES TO TAKE DUE TO THE PT DOESNT LIKE HOW IT MAKES HIM FEE DOXYCYCLINE 100MG- WAS PRESCRIBED FOR [place] SPOTTED FEVER SYMPTOMS BUT ACCORDING TO [facility] THE PT HAS NOT HAD TO USE NAPROXEN 500MG & DICLOFENAC 75MG- ACCORDING TO [facility] THE PT IS NO LONGER TAKING EITHER OTC MEDS: IMODIUM IBUPROFEN
--- NOTE | 2020-05-28 10:54 | History & Physical-Hospitalist ---
History of Present Illness HPI/Chief Complaint Pt is a 45yoCM who presented to the ER due to abdominal pain. He has been seen in the ER on 05/20, 05/23, and 05/25 for similar symptoms and was treated with antibiotics for colitis per his CT findings. He was referred to Dr Reyes and saw him on 05/26 and his antibiotics were changed to oral Levaquin and Flagyl. He returned to the ER last night due to worsening abdominal pain and difficulty keeping any oral intake down. He states his pain is persistent still but responds to morphine. When I saw him it have been 4-5 hours since his last dose and his pain was severe. I looked up order and informed patient that it was available every two hours. Source: patient Exam Limitations: no limitations Date Seen 05/28/20 Time Seen by a Provider: 10:54 Attending Physician Ambika Phillip MD PCP Alex Avelar DO Referring Physician Date of Admission May 27, 2020 at 22:00 Home Medications & Allergies Home Medications Reviewed patient Home Medication Reconciliation performed by pharmacy medication reconciliations liquified natural gas technician and/or nursing. Patients Allergies have been reviewed. Allergies Allergies Coded Allergies Penicillins (Verified Allergy, Unknown, 11/16/18) Past Aqtfvjc-[id number]-Cprshk Hx Past Med/Social Hx: Reviewed Nursing Past Med/Soc Hx Patient Social History Alcohol Use: Occasionally Uses Alcohol Beverage of Choice: Beer Recreational Drug Use: No Former Smoker, Quit: Jan 17, 2003 Type Used: Smokeless Tobacco 2nd Hand Smoke Exposure: No Recent Foreign Travel: No Contact w/other who traveled: No Recent Hopitalizations: No Recent Infectious Disease Expo: No Immunizations Up To Date Tetanus Booster (TDap): Unknown Seasonal Allergies Seasonal Allergies: No Past Medical History Surgeries: Gallbladder Gastrointestinal: Gastroesophageal Reflux Psychosocial: Anxiety History of Blood Disorders: Yes ([place] Spotted Fever) Family History FH: HTN (hypertension) Review of Systems Constitutional: No chills, No fever EENTM: no symptoms reported Respiratory: No cough, No short of breath Cardiovascular: No chest pain, No edema Gastrointestinal: see HPI, abdominal pain Genitourinary: no symptoms reported Musculoskeletal: no symptoms reported Skin: no symptoms reported Psychiatric/Neurological: No Symptoms Reported Physical Exam Physical Exam Vital Signs Vital Signs - First Documented 05/27/20 21:30 Temp 37.0 Pulse 109 Resp 18 B/P (MAP) 121/74 (90) Pulse Ox 98 O2 Delivery Room Air Capillary Refill : Less Than 3 Seconds Height, Weight, BMI Height: 6'0" Weight: 246lbs. 0.0oz. 111.245854ew; 33.00 BMI Method:Stated General Appearance: WD/WN, Mild Distress (appears uncomfortable) HEENT: PERRL/EOMI, Moist Mucous Membranes; No Scleral Icterus (L), No Scleral Icterus (R) Neck: Normal Inspection, Supple Respiratory: Lungs Clear, No Accessory Muscle Use, No Respiratory Distress Cardiovascular: Regular Rate, Rhythm, No Murmur Gastrointestinal: Normal Bowel Sounds; No Guarding, No Rebound; Tenderness (diffuse) Extremity: Normal Capillary Refill, No Calf Tenderness, No Pedal Edema Neurologic/Psychiatric: Alert, Oriented x3, Normal Mood/Affect Results Results/Procedures Labs Laboratory Tests 05/27/20 21:15 05/28/20 06:15 Patient resulted labs reviewed. Imaging: Reviewed Imaging Report Imaging [facility] [employer] [facility], [place] NAME: MELISA KENDRICK [facility] REC#: [id number] PT STATUS: REG ER : 1975 PHYSICIAN: JOSE ANTONIO MANRIQUE DO ADMIT DATE: 05/27/20/ER FS Signed Date of Exam:05/27/20 ACUTE ABD SERIES EXAMINATION: Abdominal series and chest radiograph HISTORY: Abdominal pain COMPARISON: 05/23/2020 FINDINGS: Colon is dilated and appears featureless. No dilated small bowel. Surgical clips are seen in the right upper quadrant. The lungs are clear. No edema. No pneumonia. No pleural effusion. No pneumothorax. Heart is normal in size. IMPRESSION: 1. Clear lungs. 2. Dilated and featureless colon suggestive of colitis. Dictated by: Dictated on workstation # [email or web address] Dict: 05/27/206 Trans: 05/27/202209 [facility] [id number] Interpreted by: EDWAR GALEANO MD Electronically signed by: EDWAR GALEANO MD 05/27/202209 Assessment/Plan Admission Diagnosis Colitis Admission Status: Inpatient Order (span 2 midnights) Reason for Inpatient Admission: see below Assessment and Plan Colitis Continue Levaquin and Flagyl IV Morphine for pain control NPO Surgery consulted, appreciate recs Will need colonoscopy as an outpatient when improved Diagnosis/Problems Diagnosis/Problems (1) Colitis Status: Acute (2) Dehydration Status: Acute Clinical Quality Measures DVT/VTE Risk/Contraindication: Risk Factor Score Per Nursin RFS Level Per Nursing on Admit: 4+=Very High ANSHUL NIETO MD May 28, 2020 10:54
[2020-05-28 11:23] VITALS: BP 127/71
[2020-05-28 15:41] VITALS: BP 122/73
[2020-05-28 19:13] VITALS: BP 119/72
[2020-05-28] MEDS: ENOXAPARIN 40 MG/0.4 ML (LOVENOX) SYR SQ SCH (20:37)
[2020-05-28] MEDS: LEVOFLOXACIN 750 MG/150 ML IV 150 ML IV SCH (21:34)
[2020-05-29] VITALS (7 sets, daily range): BP systolic 117–136; BP diastolic 78–86
[2020-05-29] MEDS: morphine INJ 4 MG/ML 1 ML (VIAL/SYRINGE) IVP PRN ×11 (00:12→22:35)
[2020-05-29] MEDS: ONDANSETRON 4 MG/2 ML (SDV) Z0FRAN IV SCH ×5 (00:12→23:07)
[2020-05-29] MEDS: LACTATED RINGERS 1,000 ML IV SCH ×4 (03:00→23:14)
[2020-05-29 05:50] LABS: HEMOGLOBIN 12.8 g/dL (13.3-17.7); MEAN PLATELET VOLUME 9.1 fL (9.0-12.2); WHITE BLOOD COUNT 12.9 10^3/uL (4.3-11.0)
[2020-05-29 06:24] LABS: BUN/CREATININE RATIO 16; CALCIUM 7.7 MG/DL (8.5-10.1); CARBON DIOXIDE 22 MMOL/L (21-32); CHLORIDE 102 MMOL/L (98-107); CREATININE SERUM 0.73 MG/DL (0.60-1.30); GFR ESTIMATED > 60; GLUCOSE 104 MG/DL (70-105); POTASSIUM 3.7 MMOL/L (3.6-5.0); SODIUM 134 MMOL/L (135-145)
--- NOTE | 2020-05-29 07:15 | Progress Note - Surgery ---
CORINNE TAVARES MED STUDENT 05/29/20 0715: Subjective Date Seen by a Provider: May 29, 2020 Time Seen by a Provider: 06:40 Subjective/Events-last exam Pt seen and examined. He was laying in bed resting, appears uncomfortable. He states that his abd pain is still severe but slightly improved from previous days. He is still NPO, and complains of dry mouth and is requesting ice chips. Denies chest pain, SOB, N/V. States he had a loose bowel movement x1 yesterday. Review of Systems General: No Chills HEENT: No Head Aches Pulmonary: No Dyspnea Cardiovascular: No: Chest Pain, Palpitations, Lt Headedness Gastrointestinal: Abdominal Pain (diffuse throughout abd); No: Nausea, Vomiting Genitourinary: No Dysuria Neurological: No: Weakness, Numbness Focused Exam Lactate Level 05/27/20 21:20: Lactic Acid Level 1.83 Objective Exam Vital Signs Date Time Temp Pulse Resp B/P (MAP) Pulse Ox O2 Delivery O2 Flow Rate FiO2 05/29/20 04:41 37.3 113 18 126/80 (95) 93 Room Air 05/29/20 00:38 37.2 118 22 136/84 (101) 91 Room Air 05/28/20 20:27 Room Air 05/28/20 19:13 36.8 116 16 119/72 (88) 93 Room Air 05/28/20 15:41 36.8 112 16 122/73 (89) 92 Room Air 05/28/20 11:23 37.7 112 18 127/71 (89) 92 Room Air 05/28/20 08:15 36.8 117 18 121/72 (88) 92 Room Air 05/28/20 07:52 Room Air I & O 05/29/20 07:00 Intake Total 0 ml Output Total 1850 ml Balance -1850 ml Capillary Refill : Less Than 3 Seconds General Appearance: WD/WN, Mild Distress (appears uncomfortable), Obese HEENT: PERRL/EOMI; No Scleral Icterus (L), No Scleral Icterus (R) Neck: Full Range of Motion, Normal Inspection, Non Tender, Supple Respiratory: Chest Non Tender, Lungs Clear, Normal Breath Sounds, No Accessory Muscle Use, No Respiratory Distress Cardiovascular: No Edema, No Gallop, No JVD, No Murmur, Normal Peripheral Pulses, Tachycardia Gastrointestinal: normal bowel sounds, distended; No guarding, No rebound; tenderness Extremity: Normal Capillary Refill, Normal Inspection, Normal Range of Motion, Non Tender, No Calf Tenderness, No Pedal Edema Neurologic/Psychiatric: Alert, Oriented x3, No Motor/Sensory Deficits, Normal Mood/Affect Skin: Normal Color Lymphatic: No Adenopathy Results Lab Laboratory Tests 05/29/20 05:30: White Blood Count 12.9H, Red Blood Count 4.23L, Hemoglobin 12.8L, Hematocrit 36L , Mean Corpuscular Volume 86, Mean Corpuscular Hemoglobin 30, Mean Corpuscular Hemoglobin Concent 35, Red Cell Distribution Width 13.1, Platelet Count 418H, Mean Platelet Volume 9.1, Sodium Level 134L, Potassium Level 3.7, Chloride Level 102, Carbon Dioxide Level 22, Anion Gap 10, Blood Urea Nitrogen 12, Creatinine 0.73, Estimat Glomerular Filtration Rate > 60, BUN/Creatinine Ratio 16, Glucose Level 104, Calcium Level 7.7L Microbiology 05/27/20 Blood Culture - Preliminary, Resulted No growth Assessment/Plan Assessment/Plan Assessment/Plan Colitis Dehydration Leukocytosis - improving, WBC 12.9 AAS 05/27 showed signs of colitis WBC trending down, pain improving Continue Abx, IV fluids Pain management, NPO w/ chips for bowel rest, encourage IS/ambulation Continue to monitor VS/labs Clinical Quality Measures DVT/VTE Risk/Contraindication: Risk Factor Score Per Nursin RFS Level Per Nursing on Admit: 4+=Very High NELIA REYES DO 05/29/20 1317: Subjective Subjective/Events-last exam Patient anxious. Abdominal pain slightly better today than yesterday. Morphine is helping. NPO. Had some diarrhea last night. No blood. WBC down to 12.9. Denies n/v fever sweats chills shortness of breath or chest pain. Objective Exam General Appearance: WD/WN, Anxious, Obese HEENT: PERRL/EOMI Neck: Full Range of Motion, Non Tender, Supple Respiratory: Chest Non Tender, No Accessory Muscle Use, No Respiratory Distress Cardiovascular: No JVD, Tachycardia Gastrointestinal: distended (mild); No guarding, No rebound; tenderness (diffuse) Extremity: Non Tender Neurologic/Psychiatric: Alert, Oriented x3, No Motor/Sensory Deficits, Other (anxious) Skin: Normal Color, Warm/Dry Lymphatic: No Adenopathy Assessment/Plan Assessment/Plan Assessment/Plan Colitis Abdominal pain diffuse Nauea vomiting Diarrhea Dehydration Leukocytosis - improving, WBC 12.9 WBC trending down, pain improving slightly Stool cultures Continue Abx, IV fluids Pain management, NPO for bowel rest, encourage IS/ambulation Continue to monitor VS/labs We did discuss possibility of needing surgical intervention, patient wanting to wait and continue with conservative measures. If conservative measures work will need colonoscopy about 6 weeks after resolution of symptoms. Supervisory-Addendum Brief Verification & Attestation Participated in pt care: history, MDM, physical Personally performed: exam, history, MDM, supervision of care Care discussed with: Medical Student Procedures: n/a Results interpretation: Verified all documentation Verification and Attestation of Medical Student E/M Service A medical student performed and documented this service in my presence. I reviewed and verified all information documented by the medical student and made modifications to such information, when appropriate. I personally performed the physical exam and medical decision making. Nelia Reyes, May 29, 2020,13:21 CORINNE TAVARES MED STUDENT May 29, 2020 07:15 NELIA REYES DO May 29, 2020 13:17
[2020-05-29] MEDS ORDERED: VANCOMYCIN INJECTION 0.1 MG in NS (IVPB) 250 ML IV SCH (08:30)
--- NOTE | 2020-05-29 08:44 | NUR ---
VANCOMYCIN PHARMACY TO DOSE: ADJ BW 90.7 EST CrCl >149 LOADING DOSE (ABW 110) = 2,500 MG MAIN DOSE = 2,000 MG IV BID VANCOMYCIN TROUGH DUE 05/30/20 @ 20:00 IF TROUGH > 20 HOLD 05/30/20 21:00 DOSE Addendum: 05/31/20 at 1055 by JALYN DIAZ RPH Trough 05/30 @ 20 = 12.5. Adjust dose of Vancomycin to 2250mg every 12 hours. Next trough ordered for 06/01 @ 0800. Addendum: 05/31/20 at 1059 by JALYN DIAZ RPH CORRECTION; Trough ordered for 06/02 @ 08.
[2020-05-29] MEDS: metroNIDAZOLE 500MG/100ML IVPB 100 ML IV SCH ×2 (08:51→19:21)
[2020-05-29] MEDS ORDERED: VANCOMYCIN 2,500 MG/NS 500 ML IVPB IV NR ×2 (09:00)
--- NOTE | 2020-05-29 10:00 | NUR ---
ABD DISTENDED, C/O ABD PAIN, BOWEL SOUNDS HYPOACTIVE, MORPHINE 2MG GIVEN IV FOR PAIN, DENIES NAUSEA, PATIENT ENCOURAGED TO WALK IN [place] AND SIT IN CHAIR, PATIENT REFUSED.
--- NOTE | 2020-05-29 11:43 | Progress Note - Hospitalist ---
Subjective HPI/CC On Admission Time Seen by Provider: 11:42 Pt is a 45yoCM who presented to the ER due to abdominal pain. He has been seen in the ER on 05/20, 05/23, and 05/25 for similar symptoms and was treated with antibiotics for colitis per his CT findings. He was referred to Dr Reyes and saw him on 05/26 and his antibiotics were changed to oral Levaquin and Flagyl. He returned to the ER last night due to worsening abdominal pain and difficulty keeping any oral intake down. He states his pain is persistent still but responds to morphine. When I saw him it have been 4-5 hours since his last dose and his pain was severe. I looked up order and informed patient that it was available every two hours. Focused Exam Lactate Level 05/27/20 21:20: Lactic Acid Level 1.83 Objective Exam Vital Signs Vital Signs Date Time Temp Pulse Resp B/P (MAP) Pulse Ox O2 Delivery O2 Flow Rate FiO2 05/29/20 19:55 37.0 118 20 133/79 (97) 93 Room Air Capillary Refill : Less Than 3 Seconds Results/Procedures Lab Laboratory Tests 05/29/20 05:30 Patient resulted labs reviewed. Imaging: Reviewed Imaging Report Assessment/Plan Assessment and Plan Assess & Plan/Chief Complaint Colitis Continue Levaquin and Flagyl IV Morphine for pain control NPO Surgery consulted, appreciate recs Will need colonoscopy as an outpatient when improved Diagnosis/Problems Diagnosis/Problems (1) Colitis Status: Acute (2) Dehydration Status: Acute Clinical Quality Measures DVT/VTE Risk/Contraindication: Risk Factor Score Per Nursin RFS Level Per Nursing on Admit: 4+=Very High ANSHUL NIETO MD May 29, 2020 11:42
--- NOTE | 2020-05-29 14:00 | NUR ---
MORPHINE 2MG GIVEN IV, WALKED TO BATHROOM, DIARRHEA STOOL, SPECIMENS SENT TO LAB, PATIENT CONTINUE TO REFUSE TO SIT IN CHAIR
--- NOTE | 2020-05-29 14:08 | Progress Note - Hospitalist ---
Subjective HPI/CC On Admission Date Seen by Provider: May 29, 2020 Time Seen by Provider: 14:02 Pt is a 45yoCM who presented to the ER due to abdominal pain. He has been seen in the ER on 05/20, 05/23, and 05/25 for similar symptoms and was treated with antibiotics for colitis per his CT findings. He was referred to Dr Reyes and s aw caitlin on 05/26 and his antibiotics were changed to oral Levaquin and Flagyl. He returned to the ER last night due to worsening abdominal pain and difficulty keeping any oral intake down. He states his pain is persistent still but responds to morphine. When I saw him it have been 4-5 hours since his last dose and his pain was severe. I looked up order and informed patient that it was available every two hours. Subjective/Events-last exam pt reports pain improving slightly but still there. He just saw Dr Reyes and they discussed options of continue monitoring or ex lap to evaluate and possible colectomy. He states he's very anxious about the idea of needing a colectomy and wants to wait and give his body as long as possible to recover before surgery. Focused Exam Lactate Level 05/27/20 21:20: Lactic Acid Level 1.83 Objective Exam Vital Signs Vital Signs Date Time Temp Pulse Resp B/P (MAP) Pulse Ox O2 Delivery O2 Flow Rate FiO2 05/29/20 19:55 37.0 118 20 133/79 (97) 93 Room Air Capillary Refill : Less Than 3 Seconds General Appearance: No Apparent Distress, Anxious, Other (tearful) Respiratory: Lungs Clear, No Respiratory Distress Cardiovascular: Regular Rate, Rhythm, No Murmur Gastrointestinal: Distended, Tenderness (diffuse with palpatation, less so when stethoscope used to auscultate abdomen) Neurologic/Psychiatric: Alert, Oriented x3 Results/Procedures Lab Laboratory Tests 05/29/20 05:30 Patient resulted labs reviewed. Imaging: Reviewed Imaging Report Assessment/Plan Assessment and Plan Assess & Plan/Chief Complaint Colitis Continue Levaquin and Flagyl IV Morphine for pain control NPO Surgery consulted, appreciate recs Will need colonoscopy as an outpatient when improved Coag negative staph baceteremia growing in 3/4 bottles WBC count going down Unsure of etiology, discussed with Dr Reyes Will add Vanc Cultures sent for ID and susceptibilities to see if contaminants Repeat blood cultures in the morning- if remains bacteremic will likely need DUANE DVT ppx: Lovenox Diagnosis/Problems Diagnosis/Problems (1) Colitis Status: Acute (2) Dehydration Status: Acute Clinical Quality Measures DVT/VTE Risk/Contraindication: Risk Factor Score Per Nursin RFS Level Per Nursing on Admit: 4+=Very High ANSHUL NIETO MD May 29, 2020 14:08
[2020-05-29] MEDS: ENOXAPARIN 40 MG/0.4 ML (LOVENOX) SYR SQ SCH (18:06)
[2020-05-29] MEDS: LEVOFLOXACIN 750 MG/150 ML IV 150 ML IV SCH (21:08)
--- NOTE | 2020-05-29 21:40 | NUR ---
PT. MOANING AND YELLING LOUDLY IN PAIN. CAN HEAR FROM THE HALLWAY. PAIN MEDICATION THAT IS ORDERED: (MORPHINE 2MG Q2HRS PRN) PT. REQUESTING THE PAIN MEDICATION Q1.5 HOURS. NOT SEEMING TO BE ABLE TO MAKE IT THE [address] BARBER NOTIFIED, NEW ORDERS RECEIVED: FENTANYL 50-75MCG Q1HR PRN, LORTAB 10/325 PO Q4HRS PRN. WILL CONTINUE TO MONITOR.
[2020-05-29] MEDS ORDERED: HYDROcodone/APAP 10 MG/325 MG (LORTAB) TAB PO PRN (21:45)
[2020-05-29] MEDS ORDERED: fentaNYL INJECTION 100 MCG/2 ML AMP IVP PRN (21:45)
[2020-05-29] MEDS ORDERED: fentaNYL INJECTION 100 MCG/2 ML AMP ONE (21:47)
--- NOTE | 2020-05-29 22:20 | NUR ---
PT WAS GIVEN THE FENTANYL 50MCG IV. AFTER 25 MINUETS PATIENT PUT CALL LIGHT ON AND WAS MOANING/YELLING STATING THE MEDICATION HAD WORE OFF AND HE WOULD RATHER HAVE THE MORPHINE. PT. REFUSED TO TRY THE LORTAB THAT WAS ORDERED, STATING " THAT STUFF DON'T WORK, I HAVE THAT AT HOME" DR. BARBER NOTIFIED, NEW ORDERS RECEIVED: DC FENTANYL, DC LORTAB, GIVE MORPHINE 4MG IV Q1HR PRN, PERCOCET 5/325MG PO Q4HRS PRN WILL CONTINUE TO MONITOR.
[2020-05-29] MEDS ORDERED: oxyCODONE/APAP 5/325MG (PERCOCET 5) TABLET ONE (22:28)
[2020-05-29] MEDS ORDERED: morphine INJ 4 MG/ML 1 ML (VIAL/SYRINGE) ONE (22:28)
[2020-05-29] MEDS: oxyCODONE/APAP 5/325MG (PERCOCET 5) TABLET PO PRN ×2 (22:35→23:14)
[2020-05-29] MEDS: VANCOMYCIN 2000 MG/NS 500 ML IVPB IV SCH ×2 (22:44)
[2020-05-30] MEDS: morphine INJ 4 MG/ML 1 ML (VIAL/SYRINGE) IVP PRN ×8 (01:30→20:57)
[2020-05-30] MEDS: LACTATED RINGERS 1,000 ML IV SCH ×3 (05:20→14:56)
[2020-05-30] MEDS: ONDANSETRON 4 MG/2 ML (SDV) Z0FRAN IV SCH ×3 (05:20→18:15)
[2020-05-30 05:56] LABS: MEAN PLATELET VOLUME 9.1 fL (9.0-12.2); WHITE BLOOD COUNT 15.3 10^3/uL (4.3-11.0)
[2020-05-30 06:14] LABS: CHLORIDE 101 MMOL/L (98-107); POTASSIUM 3.5 MMOL/L (3.6-5.0); SODIUM 135 MMOL/L (135-145)
[2020-05-30 06:15] LABS: CALCIUM 7.8 MG/DL (8.5-10.1); GLUCOSE 109 MG/DL (70-105)
[2020-05-30 06:17] LABS: CARBON DIOXIDE 22 MMOL/L (21-32)
[2020-05-30 06:19] LABS: CREATININE SERUM 0.74 MG/DL (0.60-1.30); GFR ESTIMATED > 60
[2020-05-30 06:20] LABS: BUN/CREATININE RATIO 18
[2020-05-30] MEDS ORDERED: NS IV 500 ML 500 ML ONE (06:26)
[2020-05-30 06:30] VITALS: BP 128/87
[2020-05-30] MEDS ORDERED: NS IV 500 ML 500 ML IV ONE (06:30)
[2020-05-30 07:32] VITALS: BP 125/83
[2020-05-30] MEDS: metroNIDAZOLE 500MG/100ML IVPB 100 ML IV SCH ×2 (09:05→20:12)
--- NOTE | 2020-05-30 10:29 | Progress Note ---
Subjective HPI/CC On Admission Date Seen by Provider: May 30, 2020 Time Seen by Provider: 10:23 Pt is a 45yoCM who presented to the ER due to abdominal pain. He has been seen in the ER on 05/20, 05/23, and 05/25 for similar symptoms and was treated with antibiotics for colitis per his CT findings. He was referred to Dr Reyes and sa tati tucker on 05/26 and his antibiotics were changed to oral Levaquin and Flagyl. He returned to the ER 05/29 due to worsening abdominal pain and difficulty keeping any oral intake down. He states his pain is persistent still but responds to morphine. Subjective/Events-last exam Pain controlled with morphine. Had a liquid bm. Complains of bloating and pain. Requesting water and "bloating medication". Not getting up and moving around today due to pain. Focused Exam Lactate Level 05/27/20 21:20: Lactic Acid Level 1.83 05/30/20 05:25: Lactic Acid Level 2.16*H 05/30/20 07:25: Lactic Acid Level 1.24 Lactic Acid Level Laboratory Tests Test 05/30/20 07:25 Lactic Acid Level 1.24 MMOL/L (0.50-2.00) Objective Exam Vital Signs Vital Signs Date Time Temp Pulse Resp B/P (MAP) Pulse Ox O2 Delivery O2 Flow Rate FiO2 05/30/20 07:32 36.1 108 20 125/83 (97) 93 Room Air Capillary Refill : Less Than 3 Seconds General Appearance: WD/WN, Anxious Respiratory: Chest Non Tender, Lungs Clear, Normal Breath Sounds Cardiovascular: Regular Rate, Rhythm, No Edema Gastrointestinal: Normal Bowel Sounds (distended diffusely tender; no guarding; hyperactive bowel sounds) Results/Procedures Lab Laboratory Tests 05/30/20 05:25 Patient resulted labs reviewed. Imaging: Reviewed Imaging Report Assessment/Plan Assessment and Plan Assess & Plan/Chief Complaint Colitis Continue Levaquin and Flagyl IV Morphine for pain control NPO Surgery consulted, appreciate recs Will leave simethicone and sips of water up to surgery. Will need colonoscopy as an outpatient when improved Coag negative staph baceteremia growing in 3/4 bottles WBC elevated back to 15 today Unsure of etiology, discussed with Dr Reyes Vanc added yesterday to cover until susceptibilities resulted Cultures sent for ID and susceptibilities to see if contaminants Repeat blood cultures in the morning- if remains bacteremic will likely need DUANE DVT ppx: Lovenox Diagnosis/Problems Diagnosis/Problems (1) Colitis Status: Acute (2) Dehydration Status: Acute (3) Heartburn Clinical Quality Measures DVT/VTE Risk/Contraindication: Risk Factor Score Per Nursin RFS Level Per Nursing on Admit: 4+=Very High VICTORIA TORRES MD May 30, 2020 10:29
[2020-05-30] MEDS: VANCOMYCIN 2000 MG/NS 500 ML IVPB IV SCH ×4 (10:42→21:43)
[2020-05-30 11:28] VITALS: BP 133/88
--- NOTE | 2020-05-30 12:26 | Progress Note ---
Subjective Date Seen by a Provider: May 30, 2020 Time Seen by a Provider: 10:30 Subjective/Events-last exam Patient seen with Dr. Abrams. Patient reports continued abdominal pain and reports morphine is helping, has not tried oral pain meds. Reports that he does feel thirsty. Discussed with patient about PCN allergy, patient does not recall what reaction he had that he was very young and reports that his mother does not recall either. Focused Exam Lactate Level 05/27/20 21:20: Lactic Acid Level 1.83 05/30/20 05:25: Lactic Acid Level 2.16*H 05/30/20 07:25: Lactic Acid Level 1.24 Objective Exam Vital Signs Date Time Temp Pulse Resp B/P (MAP) Pulse Ox O2 Delivery O2 Flow Rate FiO2 05/30/20 11:28 35.3 116 22 133/88 (103) 93 Room Air 05/30/20 08:00 Room Air 05/30/20 07:32 36.1 108 20 125/83 (97) 93 Room Air 05/30/20 06:30 36.0 115 20 128/87 (101) 93 Room Air 05/29/20 23:10 36.8 118 20 122/78 (93) 94 Room Air 05/29/20 20:34 Room Air 05/29/20 19:55 37.0 118 20 133/79 (97) 93 Room Air 05/29/20 19:15 Room Air 05/29/20 15:38 37.2 115 22 136/79 (98) 94 Room Air I & O 05/30/20 07:00 Intake Total 3395 ml Output Total 900 ml Balance 2495 ml Capillary Refill : Less Than 3 Seconds General Appearance: No Apparent Distress, WD/WN Neck: Normal Inspection, Supple Respiratory: Normal Breath Sounds, No Accessory Muscle Use, No Respiratory Distress Cardiovascular: Regular Rate, Rhythm, No Edema Gastrointestinal: distended, tenderness Extremity: Normal Capillary Refill, Normal Inspection, Normal Range of Motion Neurologic/Psychiatric: Alert, Oriented x3 Skin: Normal Color, Warm/Dry Results Lab Laboratory Tests 05/30/20 05:25: White Blood Count 15.3H, Red Blood Count 4.71, Hemoglobin 14.0, Hematocrit 42, Mean Corpuscular Volume 88, Mean Corpuscular Hemoglobin 30, Mean Corpuscular Hemoglobin Concent 34, Red Cell Distribution Width 14.0, Platelet Count 501H, Mean Platelet Volume 9.1, Sodium Level 135, Potassium Level 3.5L, Chloride Level 101, Carbon Dioxide Level 22, Anion Gap 12, Blood Urea Nitrogen 13, Creatinine 0.74, Estimat Glomerular Filtration Rate > 60, BUN/Creatinine Ratio 18, Glucose Level 109H, Lactic Acid Level 2.16*H, Calcium Level 7.8L 05/30/20 07:25: Lactic Acid Level 1.24 Microbiology 05/29/20 C. 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 It was explained to patient to go slow and if he symptoms worsen, that he will need to hold off of the liquids We did discuss possibility of needing surgical intervention, patient wanting to wait and continue with conservative measures. If conservative measures work will need colonoscopy about 6 weeks after resolution of symptoms. Clinical Quality Measures DVT/VTE Risk/Contraindication: Risk Factor Score Per Nursin RFS Level Per Nursing on Admit: 4+=Very High EULALIA FORD TIE IN HAND May 30, 2020 12:26
[2020-05-30] MEDS: oxyCODONE/APAP 5/325MG (PERCOCET 5) TABLET PO PRN ×2 (13:49→20:12)
[2020-05-30 15:36] VITALS: BP 137/90
[2020-05-30] MEDS: ENOXAPARIN 40 MG/0.4 ML (LOVENOX) SYR SQ SCH (18:15)
[2020-05-30 19:26] VITALS: BP 136/92
[2020-05-30] MEDS ORDERED: PIPERACILLIN/TAZO 4.5 GM VIAL (ZOSYN) IV ONE (19:56)
[2020-05-30] MEDS ORDERED: NS (IVPB) 100 ML ONE (19:56)
[2020-05-30] MEDS ORDERED: PIPERACILLIN/TAZOBACTAM (BULK) 4.5 GM in NS (IVPB) 100 ML IV SCH (20:00)
[2020-05-30] MEDS ORDERED: TROUGH ORDER-PHARMACY XX NR (20:00)
[2020-05-30] MEDS ORDERED: PIPERACILLIN/TAZOBACTAM 4.5 GM in NS (IVPB) 100 ML IV ONE (22:00)
[2020-05-31] VITALS (7 sets, daily range): BP systolic 125–142; BP diastolic 84–96
[2020-05-31] MEDS: ONDANSETRON 4 MG/2 ML (SDV) Z0FRAN IV SCH ×4 (00:18→18:53)
[2020-05-31] MEDS: LACTATED RINGERS 1,000 ML IV SCH ×3 (01:26→15:18)
[2020-05-31] MEDS: morphine INJ 4 MG/ML 1 ML (VIAL/SYRINGE) IVP PRN ×4 (02:27→22:53)
[2020-05-31] MEDS ORDERED: NS (IVPB) 100 ML ONE (03:50)
[2020-05-31] MEDS ORDERED: PIPERACILLIN/TAZO 4.5 GM VIAL (ZOSYN) IV ONE (03:50)
[2020-05-31] MEDS: PIPERACILLIN/TAZO 4.5 GM/NS 100 ML IV SCH ×6 (03:59→23:29)
[2020-05-31 07:13] LABS: BASOPHILS # (AUTO) 0.2 10^3/uL (0.0-0.1); BASOPHILS % (AUTO) 1 % (0-10); EOSINOPHILS # (AUTO) 0.1 10^3/uL (0.0-0.3); EOSINOPHILS % (AUTO) 0 % (0-10); HEMATOCRIT 41 % (40-54); HEMOGLOBIN 13.9 g/dL (13.3-17.7); LYMPHOCYTES # (AUTO) 1.4 10^3/uL (1.0-4.0); LYMPHOCYTES % (AUTO) 8 % (12-44); MEAN CORPUSCULAR HEMOGLOBIN 29 pg (25-34); MEAN CORPUSCULAR HGB CONC 34 g/dL (32-36); MEAN CORPUSCULAR VOLUME 88 fL (80-99); MONOCYTES # (AUTO) 1.6 10^3/uL (0.0-1.0); MONOCYTES % (AUTO) 9 % (0-12); NEUTROPHILS # (AUTO) 14.2 10^3/uL (1.8-7.8); NEUTROPHILS % (AUTO) 80 % (42-75); PLATELET COUNT 526 10^3/uL (130-400); WHITE BLOOD COUNT 17.7 10^3/uL (4.3-11.0)
[2020-05-31 07:25] LABS: ALBUMIN 2.6 GM/DL (3.2-4.5); CHLORIDE 106 MMOL/L (98-107); POTASSIUM 4.1 MMOL/L (3.6-5.0); SODIUM 140 MMOL/L (135-145)
[2020-05-31 07:26] LABS: CALCIUM 7.8 MG/DL (8.5-10.1)
[2020-05-31 07:27] LABS: GLUCOSE 132 MG/DL (70-105)
[2020-05-31 07:28] LABS: TOTAL PROTEIN 5.6 GM/DL (6.4-8.2)
[2020-05-31 07:29] LABS: BILIRUBIN,TOTAL 0.7 MG/DL (0.1-1.0); CARBON DIOXIDE 24 MMOL/L (21-32)
[2020-05-31 07:31] LABS: ALKALINE PHOSPHATASE 65 U/L (40-136); CREATININE SERUM 0.84 MG/DL (0.60-1.30); GFR ESTIMATED > 60
[2020-05-31 07:32] LABS: BUN/CREATININE RATIO 19
[2020-05-31 07:34] LABS: ALANINE AMINOTRANSFERASE 31 U/L (0-55)
[2020-05-31] MEDS: metroNIDAZOLE 500MG/100ML IVPB 100 ML IV SCH ×2 (09:03→20:09)
[2020-05-31] MEDS: VANCOMYCIN 2000 MG/NS 500 ML IVPB IV SCH ×2 (09:11)
[2020-05-31] MEDS: PANTOPRAZOLE 40 MG (PROTONIX) VIAL IV SCH (09:16)
[2020-05-31] MEDS: oxyCODONE/APAP 5/325MG (PERCOCET 5) TABLET PO PRN ×3 (09:19→20:10)
--- NOTE | 2020-05-31 10:16 | Progress Note ---
Subjective HPI/CC On Admission Date Seen by Provider: May 31, 2020 Time Seen by Provider: 10:13 Pt is a 45yoCM who presented to the ER due to abdominal pain. He has been seen in the ER on 05/20, 05/23, and 05/25 for similar symptoms and was treated with antibiotics for colitis per his CT findings. He was referred to Dr Reyes and sa tati tucker on 05/26 and his antibiotics were changed to oral Levaquin and Flagyl. He returned to the ER 05/29 due to worsening abdominal pain and difficulty keeping any oral intake down. He states his pain is persistent still but responds to morphine. Subjective/Events-last exam Patient has been up and moving around. Afebrile overnight. Started on clear fluids yesterday. Vomited last night, but tolerating fluids today. States pain is improving and main source of pain is bloating. Focused Exam Lactate Level 05/30/20 05:25: Lactic Acid Level 2.16*H 05/30/20 07:25: Lactic Acid Level 1.24 Objective Exam Vital Signs Vital Signs Date Time Temp Pulse Resp B/P (MAP) Pulse Ox O2 Delivery O2 Flow Rate FiO2 05/31/20 08:00 36.1 120 20 139/89 (106) 93 Room Air Capillary Refill : Less Than 3 Seconds General Appearance: No Apparent Distress, WD/WN Neck: Full Range of Motion Respiratory: Chest Non Tender, Lungs Clear, Normal Breath Sounds Cardiovascular: No Murmur, Tachycardia Gastrointestinal: Distended (no guarding; slight tenderness diffusely) Extremity: Normal Capillary Refill, Normal Inspection Neurologic/Psychiatric: Alert, Oriented x3 Skin: Normal Color, Warm/Dry Results/Procedures Lab Laboratory Tests 05/31/20 06:59 Patient resulted labs reviewed. Imaging: Reviewed Imaging Report Assessment/Plan Assessment and Plan Assess & Plan/Chief Complaint Colitis Continue Levaquin and Flagyl IV Morphine for pain control NPO Surgery consulted, appreciate recs Will need colonoscopy as an outpatient when improved White count trending up today. Coag negative staph baceteremia growing in 3/4 bottles WBC elevated back to 17 today Unsure of etiology, treating for staph Vanc added to cover until susceptibilities resulted Cultures sent for ID and susceptibilities to see if contaminants Repeat blood cultures in the morning- if remains bacteremic will likely need DUANE GERD- On protonix. Belching and pain resolved. DVT ppx: Lovenox Diagnosis/Problems Diagnosis/Problems (1) Colitis Status: Acute (2) Dehydration Status: Acute (3) Heartburn Status: Acute Clinical Quality Measures DVT/VTE Risk/Contraindication: Risk Factor Score Per Nursin RFS Level Per Nursing on Admit: 4+=Very High VICTORIA TORRES MD May 31, 2020 10:16
--- NOTE | 2020-05-31 11:27 | Progress Note ---
Subjective Date Seen by a Provider: May 31, 2020 Time Seen by a Provider: 11:00 Subjective/Events-last exam Patient seen with Dr. Abrams. Patient reports doing much better today. Reports that he has been up and taken a shower. Reports that he slept good. Denies any abdominal pain, N/V, or any issues currently. Reports that he has tried some liquids but not much at all. Focused Exam Lactate Level 05/30/20 05:25: Lactic Acid Level 2.16*H 05/30/20 07:25: Lactic Acid Level 1.24 Objective Exam Vital Signs Date Time Temp Pulse Resp B/P (MAP) Pulse Ox O2 Delivery O2 Flow Rate FiO2 05/31/20 08:00 36.1 120 20 139/89 (106) 93 Room Air 05/31/20 03:51 36.2 119 16 130/90 (103) 93 Room Air 05/31/20 00:00 36.6 119 17 125/86 (99) 91 Room Air 05/30/20 20:15 Room Air 05/30/20 19:26 35.9 120 20 136/92 (107) 95 Room Air 05/30/20 15:36 36.0 117 18 137/90 (106) 95 Room Air 05/30/20 11:28 35.3 116 22 133/88 (103) 93 Room Air I & O 05/31/20 07:00 Intake Total 2970 ml Output Total 850 ml Balance 2120 ml Capillary Refill : Less Than 3 Seconds General Appearance: No Apparent Distress, WD/WN Neck: Normal Inspection, Supple Respiratory: Normal Breath Sounds, No Accessory Muscle Use, No Respiratory Distress Cardiovascular: Regular Rate, Rhythm, No Edema Gastrointestinal: soft, tenderness (RLQ but very minimal) Extremity: Normal Inspection, Normal Range of Motion Neurologic/Psychiatric: Alert, Oriented x3 Skin: Normal Color, Warm/Dry Results Lab Laboratory Tests 05/30/20 20:18: Vancomycin Level Trough 12.5 05/31/20 06:59: White Blood Count 17.7H, Red Blood Count 4.72, Hemoglobin 13.9, Hematocrit 41, Mean Corpuscular Volume 88, Mean Corpuscular Hemoglobin 29, Mean Corpuscular Hemoglobin Concent 34, Red Cell Distribution Width 14.1, Platelet Count 526H, Mean Platelet Volume 9.0, Immature Granulocyte % (Auto) 2, Neutrophils (%) (Auto) 80H, Lymphocytes (%) (Auto) 8L, Monocytes (%) (Auto) 9, Eosinophils (%) (Auto) 0, Basophils (%) (Auto) 1, Neutrophils # (Auto) 14.2H, Lymphocytes # (Auto) 1.4, Monocytes # (Auto) 1.6H, Eosinophils # (Auto) 0.1, Basophils # (Auto) 0.2H, Immature Granulocyte # (Auto) 0.3H, Sodium Level 140, Potassium Level 4.1, Chloride Level 106, Carbon Dioxide Level 24, Anion Gap 10, Blood Urea Nitrogen 16, Creatinine 0.84, Estimat Glomerular Filtration Rate > 60, BUN/Creatinine Ratio 19, Glucose Level 132H, Calcium Level 7.8L, Corrected Calcium 8.9, Total Bilirubin 0.7, Aspartate Amino Transf (AST/SGOT) 27, Alanine Aminotransferase (ALT/SGPT) 31, Alkaline Phosphatase 65, Total Protein 5.6L, Albumin 2.6L Microbiology 05/29/20 Cryptosporidium/Giardia - Final, Complete 05/27/20 Blood Culture - Final, Complete Staphylococcus epidermidis Assessment/Plan Assessment/Plan Assess & Plan/Chief Complaint Colitis Abdominal pain diffuse Nauea vomiting Diarrhea Dehydration Leukocytosis - WBC up to 17.7 today WBC trended up Stool cultures show staph neg Continue Abx, IV fluids, was started on Zosyn yesterday Pain management and encourage IS/ambulation Continue to monitor VS/labs Will continue with clear liquids. It was explained to patient to go slow and if he symptoms worsen, that he will need to hold off of the liquids We did discuss possibility of needing surgical intervention, patient wanting to wait and continue with conservative measures. If conservative measures work will need colonoscopy about 6 weeks after resolution of symptoms. Clinical Quality Measures DVT/VTE Risk/Contraindication: Risk Factor Score Per Nursin RFS Level Per Nursing on Admit: 4+=Very High EULALIA FORD [employer] May 31, 2020 11:27
[2020-05-31] MEDS: ENOXAPARIN 40 MG/0.4 ML (LOVENOX) SYR SQ SCH (18:53)
[2020-05-31] MEDS: VANCOMYCIN INJECTION 2,250 MG in NS IV 500 ML 500 ML IV SCH (21:16)
[2020-06-01] MEDS: ONDANSETRON 4 MG/2 ML (SDV) Z0FRAN IV SCH ×5 (00:45→23:27)
[2020-06-01] MEDS: LACTATED RINGERS 1,000 ML IV SCH ×4 (01:32→13:21)
[2020-06-01] MEDS: morphine INJ 4 MG/ML 1 ML (VIAL/SYRINGE) IVP PRN ×2 (02:34→05:19)
[2020-06-01 03:17] VITALS: BP 138/88
[2020-06-01] MEDS: PIPERACILLIN/TAZO 4.5 GM/NS 100 ML IV SCH ×6 (05:12→20:53)
[2020-06-01 06:02] LABS: BASOPHILS # (AUTO) 0.1 10^3/uL (0.0-0.1); BASOPHILS % (AUTO) 1 % (0-10); EOSINOPHILS # (AUTO) 0.1 10^3/uL (0.0-0.3); EOSINOPHILS % (AUTO) 1 % (0-10); HEMATOCRIT 38 % (40-54); HEMOGLOBIN 12.8 g/dL (13.3-17.7); LYMPHOCYTES # (AUTO) 1.5 10^3/uL (1.0-4.0); LYMPHOCYTES % (AUTO) 9 % (12-44); MEAN CORPUSCULAR HEMOGLOBIN 30 pg (25-34); MEAN CORPUSCULAR HGB CONC 34 g/dL (32-36); MEAN CORPUSCULAR VOLUME 88 fL (80-99); MONOCYTES # (AUTO) 1.4 10^3/uL (0.0-1.0); MONOCYTES % (AUTO) 8 % (0-12); NEUTROPHILS # (AUTO) 13.8 10^3/uL (1.8-7.8); NEUTROPHILS % (AUTO) 81 % (42-75); PLATELET COUNT 502 10^3/uL (130-400); WHITE BLOOD COUNT 17.1 10^3/uL (4.3-11.0)
[2020-06-01 06:15] LABS: POTASSIUM 3.7 MMOL/L (3.6-5.0)
[2020-06-01 06:16] LABS: CALCIUM 7.8 MG/DL (8.5-10.1)
[2020-06-01 06:21] LABS: CREATININE SERUM 1.84 MG/DL (0.60-1.30)
[2020-06-01 06:34] LABS: ATYPICAL LYMPHOCYTES 2 %; BAND NEUTROPHILS 6 %; LYMPHOCYTES % (MANUAL) 10 %; MICROCYTOSIS SLIGHT; MONOCYTES % (MANUAL) 10 %; NEUTROPHILS % (MANUAL) 72 %; POLYCHROMASIA SLIGHT; TOXIC GRANULATION/VACUOLAZATIO 1+
[2020-06-01 07:30] VITALS: BP 146/88
[2020-06-01] MEDS: metroNIDAZOLE 500MG/100ML IVPB 100 ML IV SCH ×2 (09:15→19:49)
[2020-06-01] MEDS: VANCOMYCIN INJECTION 2,250 MG in NS IV 500 ML 500 ML IV SCH ×2 (09:15→20:53)
[2020-06-01] MEDS: PANTOPRAZOLE 40 MG (PROTONIX) VIAL IV SCH (09:16)
--- NOTE | 2020-06-01 09:52 | Progress Note ---
Subjective HPI/CC On Admission Date Seen by Provider: Jun 01, 2020 Time Seen by Provider: 09:50 Pt is a 45yoCM who presented to the ER due to abdominal pain. He has been seen in the ER on 05/20, 05/23, and 05/25 for similar symptoms and was treated with antibiotics for colitis per his CT findings. He was referred to Dr Reyes and sa tati tucker on 05/26 and his antibiotics were changed to oral Levaquin and Flagyl. He returned to the ER 05/29 due to worsening abdominal pain and difficulty keeping any oral intake down. He states his pain is persistent still but responds to morphine. Subjective/Events-last exam Patient did well yesterday until he drank his tea and ate a popsicle. Since then pain increased and bloating. Small mucusy bm today with blood. Has only taken water since yesterday and very little of it. Focused Exam Lactate Level 05/30/20 05:25: Lactic Acid Level 2.16*H 05/30/20 07:25: Lactic Acid Level 1.24 Objective Exam Vital Signs Vital Signs Date Time Temp Pulse Resp B/P (MAP) Pulse Ox O2 Delivery O2 Flow Rate FiO2 06/01/20 07:30 36.4 114 20 146/88 (107) 92 Room Air Capillary Refill : Less Than 3 Seconds General Appearance: No Apparent Distress, WD/WN, Anxious Respiratory: Chest Non Tender Cardiovascular: Regular Rate, Rhythm, Tachycardia Gastrointestinal: Distended (tense; diffusely mildly tender) Extremity: No Pedal Edema Neurologic/Psychiatric: Alert, Oriented x3, No Motor/Sensory Deficits Results/Procedures Lab Laboratory Tests 06/01/20 05:40 06/01/20 05:43 Patient resulted labs reviewed. Imaging: Reviewed Imaging Report Assessment/Plan Assessment and Plan Assess & Plan/Chief Complaint Colitis Continue Levaquin and Flagyl IV Morphine for pain control NPO Surgery consulted, appreciate recs Will need colonoscopy as an outpatient when improved White count trending up today. Coag negative staph baceteremia growing in 3/4 bottles WBC elevated back to 17 today Unsure of etiology, treating for staph Vanc -susc on cultures. Source of infection? Cultures sent for ID and susceptibilities- final Repeat blood cultures in the morning- if remains bacteremic will likely need DUANE GERD- On protonix. Belching and pain resolved. DVT ppx: Lovenox Diagnosis/Problems Diagnosis/Problems (1) Colitis Status: Acute (2) Dehydration Status: Acute (3) Heartburn Status: Acute Clinical Quality Measures DVT/VTE Risk/Contraindication: Risk Factor Score Per Nursin RFS Level Per Nursing on Admit: 4+=Very High VICTORIA TORRES MD Jun 01, 2020 09:52
[2020-06-01] MEDS: oxyCODONE/APAP 5/325MG (PERCOCET 5) TABLET PO PRN ×3 (10:34→20:53)
--- NOTE | 2020-06-01 10:40 | Progress Note ---
Subjective Date Seen by a Provider: Jun 01, 2020 Time Seen by a Provider: 10:20 Subjective/Events-last exam Patient seen with Dr. Abrams. Patient reports that he does feel worse again today and having abdominal pain and bloating. He does report some nausea and dry heaves but says that he has been keeping down the liquids. He reports he did have a BM this morning which did have bright red blood and mucus in his stool. He denied any other issue. Focused Exam Lactate Level 05/30/20 05:25: Lactic Acid Level 2.16*H 05/30/20 07:25: Lactic Acid Level 1.24 Objective Exam Vital Signs Date Time Temp Pulse Resp B/P (MAP) Pulse Ox O2 Delivery O2 Flow Rate FiO2 06/01/20 07:30 36.4 114 20 146/88 (107) 92 Room Air 06/01/20 03:17 36.6 114 18 138/88 (105) 90 Room Air 05/31/20 23:57 36.0 112 20 135/84 (101) 92 Room Air 05/31/20 20:10 Room Air 05/31/20 19:00 36.6 113 22 142/88 (106) 91 Room Air 05/31/20 15:32 36.9 116 20 135/96 (109) 93 Room Air 05/31/20 12:00 37.2 117 20 140/89 (106) 93 Room Air I & O 06/01/20 07:00 Intake Total 3852.5 ml Output Total 1130 ml Balance 2722.5 ml Capillary Refill : Less Than 3 Seconds General Appearance: No Apparent Distress, WD/WN Neck: Normal Inspection, Supple Respiratory: Normal Breath Sounds, No Accessory Muscle Use, No Respiratory Distress Cardiovascular: Regular Rate, Rhythm, No Edema Gastrointestinal: normal bowel sounds, distended, tenderness (diffuse with more on the right side) Extremity: Normal Inspection, Normal Range of Motion Neurologic/Psychiatric: Alert, Oriented x3 Skin: Normal Color, Warm/Dry Results Lab Laboratory Tests 06/01/20 05:40: Sodium Level 140, Potassium Level 3.7, Chloride Level 108H, Carbon Dioxide Level 22, Anion Gap 10, Blood Urea Nitrogen 21H, Creatinine 1.84H, Estimat Glomerular Filtration Rate 40, BUN/Creatinine Ratio 11, Glucose Level 106H, Calcium Level 7.8L 06/01/20 05:43: White Blood Count 17.1H, Red Blood Count 4.29L, Hemoglobin 12.8L, Hematocrit 38L , Mean Corpuscular Volume 88, Mean Corpuscular Hemoglobin 30, Mean Corpuscular Hemoglobin Concent 34, Red Cell Distribution Width 14.5, Platelet Count 502H, Mean Platelet Volume 9.0, Immature Granulocyte % (Auto) 1, Neutrophils (%) (Auto) 81H, Lymphocytes (%) (Auto) 9L, Monocytes (%) (Auto) 8, Eosinophils (%) (Auto) 1, Basophils (%) (Auto) 1, Neutrophils # (Auto) 13.8H, Lymphocytes # (Auto) 1.5, Monocytes # (Auto) 1.4H, Eosinophils # (Auto) 0.1, Basophils # (Auto) 0.1, Immature Granulocyte # (Auto) 0.2H, Neutrophils % (Manual) 72, Lymphocytes % (Manual) 10, Monocytes % (Manual) 10, Band Neutrophils 6, Atypical Lymphocytes 2, Toxic Granulation 1+, Polychromasia SLIGHT, Basophilic Stippling SLIGHT, Microcytosis SLIGHT Microbiology 05/30/20 Blood Culture - Preliminary, Resulted No growth 05/29/20 Cryptosporidium/Giardia - Final, Complete Assessment/Plan Assessment/Plan Assess & Plan/Chief Complaint Colitis Abdominal pain diffuse Nauea vomiting Diarrhea Dehydration Leukocytosis - WBC down to 17.1 today WBC trending down today Stool cultures show staph neg Continue Abx, IV fluids, will start reglan 5mg IV every 6 hours Pain management and encourage IS/ambulation Continue to monitor VS/labs Will continue with clear liquids. It was explained to patient to go slow and if he symptoms worsen, that he will need to hold off of the liquids We did discuss possibility of needing surgical intervention, patient wanting to wait and continue with conservative measures. If conservative measures work will need colonoscopy about 6 weeks after resolution of symptoms. Clinical Quality Measures DVT/VTE Risk/Contraindication: Risk Factor Score Per Nursin RFS Level Per Nursing on Admit: 4+=Very High EULALIA FORD [employer]AD[employer] Jun 01, 2020 10:40
[2020-06-01 12:00] VITALS: BP 137/91
[2020-06-01] MEDS: METOCLOPRAMIDE INJ 10 MG/2 ML (REGLAN) IVP SCH ×3 (12:45→23:31)
[2020-06-01 15:52] VITALS: BP 153/86
[2020-06-01] MEDS: ENOXAPARIN 40 MG/0.4 ML (LOVENOX) SYR SQ SCH (18:26)
[2020-06-01 19:33] VITALS: BP 138/89
[2020-06-02] VITALS: BP 139/89
[2020-06-02] MEDS: morphine INJ 4 MG/ML 1 ML (VIAL/SYRINGE) IVP PRN ×5 (00:56→18:16)
[2020-06-02] MEDS: LACTATED RINGERS 1,000 ML IV SCH ×4 (01:00→17:47)
[2020-06-02] MEDS: oxyCODONE/APAP 5/325MG (PERCOCET 5) TABLET PO PRN ×5 (02:15→20:57)
[2020-06-02 03:48] VITALS: BP 137/79
[2020-06-02] MEDS: PIPERACILLIN/TAZO 4.5 GM/NS 100 ML IV SCH ×4 (04:26→11:13)
[2020-06-02] MEDS: METOCLOPRAMIDE INJ 10 MG/2 ML (REGLAN) IVP SCH (06:15)
[2020-06-02] MEDS: ONDANSETRON 4 MG/2 ML (SDV) Z0FRAN IV SCH ×3 (06:15→17:46)
[2020-06-02 07:21] LABS: HEMOGLOBIN 11.5 g/dL (13.3-17.7); MEAN PLATELET VOLUME 9.3 fL (9.0-12.2); WHITE BLOOD COUNT 14.3 10^3/uL (4.3-11.0)
[2020-06-02 07:33] LABS: POTASSIUM 3.9 MMOL/L (3.6-5.0)
[2020-06-02 07:34] LABS: CALCIUM 7.6 MG/DL (8.5-10.1)
[2020-06-02 07:39] LABS: CREATININE SERUM 2.5 MG/DL (0.60-1.30)
[2020-06-02 08:00] VITALS: BP 129/84
[2020-06-02] MEDS ORDERED: TROUGH ORDER-PHARMACY XX NR (08:00)
[2020-06-02] MEDS: PANTOPRAZOLE 40 MG (PROTONIX) VIAL IV SCH (08:32)
[2020-06-02] MEDS: VANCOMYCIN INJECTION 2,250 MG in NS IV 500 ML 500 ML IV SCH (09:25)
--- NOTE | 2020-06-02 09:34 | Progress Note - Surgery ---
TIFFANY SIMPSON,MED STUDENT 06/02/20 0933: Subjective Date Seen by a Provider: Jun 02, 2020 Time Seen by a Provider: 08:09 Subjective/Events-last exam Pt seen and examined this morning. He was feeling somewhat better until he tried drinking apple juice this AM, and is now having nausea and heartburn. He states he is still having BMs with blood in them and abdominal pain. Is needing assistance getting out of bed. Reports some SOB with conversation and when out of bed. Denies fever, chills, chest pain. Review of Systems General: No Chills, No Night Sweats HEENT: No Head Aches, No Sore Throat Pulmonary: Dyspnea (with conversation); No Cough Cardiovascular: No: Chest Pain Gastrointestinal: Nausea, Abdominal Pain, Hematochezia; No: Vomiting Genitourinary: No Dysuria, No Hematuria Neurological: Weakness; No: Numbness, Confusion Objective Exam Vital Signs Date Time Temp Pulse Resp B/P (MAP) Pulse Ox O2 Delivery O2 Flow Rate FiO2 06/02/20 08:00 36.1 111 18 129/84 (99) 93 Room Air 06/02/20 03:48 36.8 111 19 137/79 (98) 92 Room Air 06/02/20 00:00 36.4 113 17 139/89 (106) 93 Room Air 06/01/20 19:45 Room Air 06/01/20 19:33 36.9 116 22 138/89 (105) 93 Room Air 06/01/20 15:52 36.2 109 20 153/86 (108) 92 Room Air 06/01/20 12:00 37.4 111 20 137/91 (106) 91 Room Air I & O 06/02/20 07:00 Intake Total 2670 ml Output Total 1625 ml Balance 1045 ml Capillary Refill : Less Than 3 Seconds General Appearance: No Apparent Distress, WD/WN HEENT: PERRL/EOMI Neck: Non Tender, Supple Respiratory: No Accessory Muscle Use, No Respiratory Distress, Decreased Breath Sounds (bilateral bases) Cardiovascular: Regular Rate, Rhythm, No Edema, Normal Peripheral Pulses Gastrointestinal: normal bowel sounds, distended, tenderness (diffuse, worse in LLQ) Extremity: Normal Inspection, Normal Range of Motion, No Pedal Edema Neurologic/Psychiatric: Alert, Oriented x3 Skin: Normal Color, Warm/Dry Lymphatic: No Adenopathy Results Lab Laboratory Tests 1/4/21 06:40: White Blood Count 14.3H, Red Blood Count 3.84L, Hemoglobin 11.5L, Hematocrit 34L , Mean Corpuscular Volume 89, Mean Corpuscular Hemoglobin 30, Mean Corpuscular Hemoglobin Concent 34, Red Cell Distribution Width 14.9H, Platelet Count 522H, Mean Platelet Volume 9.3, Sodium Level 139, Potassium Level 3.9, Chloride Level 108H, Carbon Dioxide Level 20L, Anion Gap 11, Blood Urea Nitrogen 25H, Creatinine 2.50#H, Estimat Glomerular Filtration Rate 28, BUN/Creatinine Ratio 10, Glucose Level 95, Calcium Level 7.6L 06/02/20 08:04: Vancomycin Level Trough 65.2*H Microbiology 05/30/20 Blood Culture - Preliminary, Resulted No growth 05/29/20 Cryptosporidium/Giardia - Final, Complete Assessment/Plan Assessment/Plan Assessment/Plan Colitis, infectious vs inflammatory Leukocytosis - WBC down to 14.3 today Staph epidermidis bacteremia SOBIA- creatinine increased to 2.50 this AM, possibly from Vancomycin Add Solumedrol 40 Continue Abx, LR @150 Pain management and encourage IS and increased ambulation with PT Continue clear liquid diet, NPO if continued nausea Will consider CT abd/pelvis tomorrow if no improvement Will need colonoscopy in 6 weeks as outpatient Clinical Quality Measures DVT/VTE Risk/Contraindication: Risk Factor Score Per Nursin RFS Level Per Nursing on Admit: 4+=Very High NELIA REYES DO 06/02/202049: Subjective Subjective/Events-last exam Patient with liquid/bloody/mucous bm. Pain slightly improved. States abdomen less distended. Feeling weak. Took some apple juice this morning and feels heartburn, but until then taking liquids okay. Denies fever sweats chills or chest pain. WBC decreasing. Objective Exam General Appearance: Anxious HEENT: PERRL/EOMI, Normal ENT Inspection Neck: Non Tender, Supple Respiratory: Chest Non Tender, No Accessory Muscle Use, No Respiratory Distress Cardiovascular: No JVD, Tachycardia Gastrointestinal: distended, tenderness (diffuse, improved since my last exam) Extremity: Normal Inspection, Normal Range of Motion, No Pedal Edema Neurologic/Psychiatric: Alert, Oriented x3 Skin: Normal Color, Warm/Dry Lymphatic: No Adenopathy Assessment/Plan Assessment/Plan Assessment/Plan Colitis, infectious vs inflammatory Leukocytosis - WBC down to 14.3 today Staph epidermidis bacteremia SOBIA- creatinine increased to 2.50 this AM, possibly from Vancomycin Add Solumedrol 40 Continue Abx, LR @150 Pain management and encourage IS and increased ambulation with PT Continue clear liquid diet, NPO if continued nausea Will consider CT abd/pelvis tomorrow if no improvement Will need colonoscopy in 6 weeks as outpatient Supervisory-Addendum Brief Verification & Attestation Participated in pt care: history, MDM, physical Personally performed: exam, history, MDM, supervision of care Care discussed with: Medical Student Procedures: n/a Results interpretation: Verified all documentation Verification and Attestation of Medical Student E/M Service A medical student performed and documented this service in my presence. I reviewed and verified all information documented by the medical student and made modifications to such information, when appropriate. I personally performed the physical exam and medical decision making. Nelia Reyes, Jun 02, 2020,10:50 TIFFANY SIMPSON,MED STUDENT Jun 02, 2020 09:33 NELIA REYES DO Jun 02, 2020 20:50
[2020-06-02 12:00] VITALS: BP 148/73
[2020-06-02] MEDS ORDERED: methylPREDNISolone 40 MG/ML (Solu-MEDROL) VIAL IV NR (12:00)
--- NOTE | 2020-06-02 14:59 | Progress Note - Hospitalist ---
Subjective HPI/CC On Admission Date Seen by Provider: Jun 02, 2020 Time Seen by Provider: 09:55 Pt is a 45yoCM who presented to the ER due to abdominal pain. He has been seen in the ER on 05/20, 05/23, and 05/25 for similar symptoms and was treated with antibiotics for colitis per his CT findings. He was referred to Dr Reyes and sa tati tucker on 05/26 and his antibiotics were changed to oral Levaquin and Flagyl. He returned to the ER 05/29 due to worsening abdominal pain and difficulty keeping any oral intake down. He states his pain is persistent still but responds to morphine. Subjective/Events-last exam He is feeling a bit better. He denies any fevers. He distal having some abdominal pain. He denies any nausea or vomiting. He is not having any diarrhea. Objective Exam Vital Signs Vital Signs Date Time Temp Pulse Resp B/P (MAP) Pulse Ox O2 Delivery O2 Flow Rate FiO2 06/02/20 12:00 36.6 120 18 148/73 (98) 90 Room Air Capillary Refill : Less Than 3 Seconds General Appearance: No Apparent Distress, WD/WN Respiratory: Lungs Clear, Normal Breath Sounds, No Respiratory Distress Cardiovascular: Regular Rate, Rhythm, No Edema, No Murmur Gastrointestinal: Normal Bowel Sounds, Soft, Tenderness Extremity: Normal Inspection, Non Tender, No Pedal Edema Neurologic/Psychiatric: Alert, Oriented x3, No Motor/Sensory Deficits, Normal Mood/Affect Skin: Normal Color, Warm/Dry Results/Procedures Lab Laboratory Tests 06/02/20 06:40 Patient resulted labs reviewed. Imaging: Reviewed Imaging Report Assessment/Plan Assessment and Plan Assess & Plan/Chief Complaint Colitis Transition to Rocephin and Flagyl Continue pain regimen NPO Surgery consulted, appreciate recs Possible MRSE bacteremia Acute tubular necrosis Acute kidney injury growing in 3/4 bottles, possible contaminant Repeat blood cultures negative Vanc trough 65 Stop Vancomycin Transition to Rocephin and Flagyl IV fluids GERD Protonix DVT ppx: Lovenox Diagnosis/Problems Diagnosis/Problems (1) Colitis Status: Acute (2) Methicillin resistant Staphylococcus epidermidis infection Status: Acute (3) Acute tubular necrosis Status: Acute (4) SOBIA (acute kidney injury) Status: Acute Clinical Quality Measures DVT/VTE Risk/Contraindication: Risk Factor Score Per Nursin RFS Level Per Nursing on Admit: 4+=Very High YOLIE CARRENO MD Jun 02, 2020 14:59
[2020-06-02] MEDS: cefTRIAXone FOR IV USE 2,000 MG in WATER (STERILE) FOR INJECTION 20 ML IV SCH (15:32)
--- NOTE | 2020-06-02 15:46 | NUR ---
"RD ASSESSMENT PMHx: GERD; current - colitis; PT INTERACTION: Pt was awake and pleasant during nutrition assessment. During assessment, pt appeared to be in pain at times. Pt states current appetite is poor. Note avg PO intake <25% x3d, per chart review. Pt states following a regular diet at home, and has no issues with chewing/swallowing food. Pt states recent issues with nausea, vomiting, and diarrhea. Note episode of emesis on 06/01, per chart review. Note last BM was 06/02, and pt not currently on bowel regimen per chart review. Pt states recent wt loss, but unsure of amount/timeframe. Note unable to determine recent wt hx, per chart review. Est. kcal needs: 2357-4528 kcal | 15-20 kcal/kg Est. Pro needs: 88-110 g Pro | 0.8-1.0 g Pro/kg PES STATEMENT: Inadequate oral intake (NI-2.1) related to loss of appetite, abdominal pain, nausea, vomiting, and diarrhea, as evidenced by pt interview, chart review, and avg PO intake <25% x3d. INTERVENTION: Continue with current diet order of Clear Liquid diet. Add Ensure Clear to meals TID, for increased kcal intake. Provides 250 kcal and 8 g Pro per serving. Will continue to follow and reassess as pt needs, intake, and status change. Pete MAYNARD, RD LD [phone] cell"
[2020-06-02 16:05] VITALS: BP 151/92
[2020-06-02] MEDS: ENOXAPARIN 40 MG/0.4 ML (LOVENOX) SYR SQ SCH (17:46)
[2020-06-02] MEDS: metroNIDAZOLE 500MG/100ML IVPB 100 ML IV SCH (20:58)
[2020-06-02 23:34] VITALS: BP 140/91
[2020-06-03] MEDS: ONDANSETRON 4 MG/2 ML (SDV) Z0FRAN IV SCH ×2 (00:09→05:45)
[2020-06-03] MEDS: morphine INJ 4 MG/ML 1 ML (VIAL/SYRINGE) IVP PRN ×2 (00:25→14:47)
[2020-06-03] MEDS: oxyCODONE/APAP 5/325MG (PERCOCET 5) TABLET PO PRN ×4 (03:17→20:10)
[2020-06-03] MEDS: LACTATED RINGERS 1,000 ML IV SCH ×4 (04:13→21:57)
[2020-06-03] MEDS: metroNIDAZOLE 500MG/100ML IVPB 100 ML IV SCH ×3 (05:44→21:57)
[2020-06-03 06:00] LABS: BASOPHILS # (AUTO) 0.1 10^3/uL (0.0-0.1); BASOPHILS % (AUTO) 1 % (0-10); EOSINOPHILS # (AUTO) 0.1 10^3/uL (0.0-0.3); EOSINOPHILS % (AUTO) 1 % (0-10); HEMATOCRIT 37 % (40-54); HEMOGLOBIN 12.2 g/dL (13.3-17.7); LYMPHOCYTES # (AUTO) 1.6 10^3/uL (1.0-4.0); LYMPHOCYTES % (AUTO) 13 % (12-44); MEAN CORPUSCULAR HEMOGLOBIN 30 pg (25-34); MEAN CORPUSCULAR HGB CONC 33 g/dL (32-36); MEAN CORPUSCULAR VOLUME 90 fL (80-99); MEAN PLATELET VOLUME 9.4 fL (9.0-12.2); MONOCYTES # (AUTO) 1.2 10^3/uL (0.0-1.0); MONOCYTES % (AUTO) 10 % (0-12); NEUTROPHILS # (AUTO) 9.3 10^3/uL (1.8-7.8); NEUTROPHILS % (AUTO) 75 % (42-75); PLATELET COUNT 528 10^3/uL (130-400); WHITE BLOOD COUNT 12.4 10^3/uL (4.3-11.0)
[2020-06-03 06:10] LABS: CREATININE SERUM 2.66 MG/DL (0.60-1.30)
--- NOTE | 2020-06-03 06:34 | Progress Note - Surgery ---
ASHLEY WATSON MED STUDENT 06/03/20 0634: Subjective Date Seen by a Provider: Jun 03, 2020 Time Seen by a Provider: 06:30 Subjective/Events-last exam Pt was asleep upon entering room. States he did not slept well during the night. Pt notes BM x1, flatus x4, and emesis x1 yesterday (06/02). Pain is 4-5/10 due to abd. distention and back pain. Pt complains of insatiable thirst, but is unable to drink large amounts due to pain with abd. distention. Pt also notes increased edema in knees and thighs. Review of Systems General: No Chills; Malaise Pulmonary: Dyspnea (on exersion and during conversation), Cough Cardiovascular: Edema (Bilateral thighs/ knees); No: Chest Pain Gastrointestinal: Nausea, Vomiting, Abdominal Pain, Diarrhea Musculoskeletal: back pain Polydipsia Objective Exam Vital Signs Date Time Temp Pulse Resp B/P (MAP) Pulse Ox O2 Delivery O2 Flow Rate FiO2 06/02/20 23:34 36.3 98 22 140/91 (107) 91 Room Air 06/02/20 20:55 Room Air 06/02/20 16:05 36.6 108 20 151/92 (111) 95 Room Air 06/02/20 12:00 36.6 120 18 148/73 (98) 90 Room Air 06/02/20 08:00 36.1 111 18 129/84 (99) 93 Room Air 06/02/20 08:00 Room Air I & O 06/03/20 07:00 Intake Total 3820 ml Output Total 2075 ml Balance 1745 ml Capillary Refill : Less Than 3 Seconds General Appearance: Anxious HEENT: PERRL/EOMI, Normal ENT Inspection Neck: Non Tender, Supple Respiratory: Chest Non Tender, No Accessory Muscle Use, No Respiratory Distress Cardiovascular: Regular Rate, Rhythm, No JVD, Tachycardia Gastrointestinal: normal bowel sounds, distended, tenderness (diffuse, improved since my last exam) Extremity: Normal Inspection, Normal Range of Motion, No Pedal Edema, Swelling (Bilateral thighs/ knees) Neurologic/Psychiatric: Alert, Oriented x3 Skin: Normal Color, Warm/Dry Lymphatic: No Adenopathy Results Lab Laboratory Tests 06/02/20 06:40: White Blood Count 14.3H, Red Blood Count 3.84L, Hemoglobin 11.5L, Hematocrit 34L , Mean Corpuscular Volume 89, Mean Corpuscular Hemoglobin 30, Mean Corpuscular Hemoglobin Concent 34, Red Cell Distribution Width 14.9H, Platelet Count 522H, Mean Platelet Volume 9.3, Sodium Level 139, Potassium Level 3.9, Chloride Level 108H, Carbon Dioxide Level 20L, Anion Gap 11, Blood Urea Nitrogen 25H, Creatinine 2.50#H, Estimat Glomerular Filtration Rate 28, BUN/Creatinine Ratio 10, Glucose Level 95, Calcium Level 7.6L 06/02/20 08:04: Vancomycin Level Trough 65.2*H 06/03/20 05:21: White Blood Count 12.4H, Red Blood Count 4.13L, Hemoglobin 12.2L, Hematocrit 37L , Mean Corpuscular Volume 90, Mean Corpuscular Hemoglobin 30, Mean Corpuscular Hemoglobin Concent 33, Red Cell Distribution Width 15.1H, Platelet Count 528H, Mean Platelet Volume 9.4, Sodium Level 139, Potassium Level 4.0, Chloride Level 107, Carbon Dioxide Level 22, Anion Gap 10, Blood Urea Nitrogen 28H, Creatinine 2.66H, Estimat Glomerular Filtration Rate 26, BUN/Creatinine Ratio 11, Glucose Level 94, Calcium Level 8.0L, Immature Granulocyte % (Auto) 1, Neutrophils (%) (Auto) 75, Lymphocytes (%) (Auto) 13, Monocytes (%) (Auto) 10, Eosinophils (%) (Auto) 1, Basophils (%) (Auto) 1, Neutrophils # (Auto) 9.3H, Lymphocytes # (Auto) 1.6, Monocytes # (Auto) 1.2H, Eosinophils # (Auto) 0.1, Basophils # (Auto) 0.1, Immature Granulocyte # (Auto) 0.1 Microbiology 05/30/20 Blood Culture - Preliminary, Resulted No growth 05/29/20 Cryptosporidium/Giardia - Final, Complete Assessment/Plan Assessment/Plan Assessment/Plan Colitis, infectious vs inflammatory Leukocytosis - WBC down to 12.4 today Staph epidermidis bacteremia SOBIA- creatinine increased to 2.66 this AM, possibly from Vancomycin Add Solumedrol 40 Continue Abx, LR @150 Pain management and encourage IS and increased ambulation with PT Continue clear liquid diet, NPO if continued nausea Will consider CT abd/pelvis if no improvement Will need colonoscopy in 6 weeks as outpatient Clinical Quality Measures DVT/VTE Risk/Contraindication: Risk Factor Score Per Nursin RFS Level Per Nursing on Admit: 4+=Very High NELIA REYES DO 06/03/20 1653: Subjective Subjective/Events-last exam Not tolerating clears today. Patient more abdominal distention and still having pain. Not ambulating. States not passing flatus or bm today. Had ct scan showing distention of colon and small bowel. Objective Exam General Appearance: No Apparent Distress, WD/WN HEENT: PERRL/EOMI, Normal ENT Inspection Neck: Normal Inspection, Non Tender Respiratory: Chest Non Tender, No Accessory Muscle Use, No Respiratory Distress Cardiovascular: Regular Rate, Rhythm, No JVD, Tachycardia Gastrointestinal: normal bowel sounds, distended, tenderness (diffuse) Extremity: Non Tender, Swelling (Bilateral thighs/ knees) Neurologic/Psychiatric: Alert, Oriented x3 Skin: Normal Color, Warm/Dry Lymphatic: No Adenopathy Assessment/Plan Assessment/Plan Assessment/Plan Colitis, infectious vs inflammatory Leukocytosis - WBC down to 12.4 today Staph epidermidis bacteremia SOBIA- creatinine increased to 2.66 Add Solumedrol 40 Continue Abx, LR @150 Pain management and encourage IS and increased ambulation with PT Continue clear liquid diet, NPO if continued nausea Ct with dilatation of colon discussed risks and benefits of decompressive colonoscopy with him and who understand risks and benefits and wishes to proceed patient discussed need to decrease narcotics and increase ambulation Supervisory-Addendum Brief Verification & Attestation Participated in pt care: history, MDM, physical Personally performed: exam, history, MDM, supervision of care Care discussed with: Medical Student Procedures: n/a Results interpretation: Verified all documentation Verification and Attestation of Medical Student E/M Service A medical student performed and documented this service in my presence. I reviewed and verified all information documented by the medical student and made modifications to such information, when appropriate. I personally performed the physical exam and medical decision making. Nelia Reyes, Jun 03, 2020,17:01 ASHLEY WATSON MED STUDENT Jun 03, 2020 06:34 NELIA REYES DO Jun 03, 2020 16:53
[2020-06-03 07:40] VITALS: BP 138/96
[2020-06-03] MEDS: PANTOPRAZOLE 40 MG (PROTONIX) VIAL IV SCH (08:25)
--- NOTE | 2020-06-03 14:40 | Progress Note - Hospitalist ---
Subjective HPI/CC On Admission Date Seen by Provider: Jun 03, 2020 Time Seen by Provider: 09:10 Pt is a 45yoCM who presented to the ER due to abdominal pain. He has been seen in the ER on 05/20, 05/23, and 05/25 for similar symptoms and was treated with antibiotics for colitis per his CT findings. He was referred to Dr Reyes and sa tati tucker on 05/26 and his antibiotics were changed to oral Levaquin and Flagyl. He returned to the ER 05/29 due to worsening abdominal pain and difficulty keeping any oral intake down. He states his pain is persistent still but responds to morphine. Subjective/Events-last exam He is still having abdominal pain. He reports that he has been very thirsty. He denies fevers. He has no other complaints or concerns. Objective Exam Vital Signs Vital Signs Date Time Temp Pulse Resp B/P (MAP) Pulse Ox O2 Delivery O2 Flow Rate FiO2 06/03/20 08:45 Room Air 06/03/20 07:40 36.1 116 20 138/96 (110) 95 Capillary Refill : Less Than 3 Seconds General Appearance: No Apparent Distress, WD/WN Respiratory: Lungs Clear, Normal Breath Sounds, No Respiratory Distress Cardiovascular: Regular Rate, Rhythm, No Edema, No Murmur Gastrointestinal: Soft, Abnormal Bowel Sounds (hypoactive), Distended, Tenderness Extremity: Normal Inspection, Non Tender, No Pedal Edema Neurologic/Psychiatric: Alert, Oriented x3, No Motor/Sensory Deficits, Normal Mood/Affect Skin: Normal Color, Warm/Dry Results/Procedures Lab Laboratory Tests 06/03/20 05:21 Patient resulted labs reviewed. Imaging: Reviewed Imaging Report Assessment/Plan Assessment and Plan Assess & Plan/Chief Complaint Colitis Continue Rocephin and Flagyl Continue pain regimen NPO Surgery consulted, appreciate recs Repeat CT Abdomen Possible MRSE bacteremia Vancomycin toxicity Acute tubular necrosis Acute kidney injury s/p course of Vancomycin, now stopped IV fluids GERD Protonix DVT ppx: Lovenox Diagnosis/Problems Diagnosis/Problems (1) Colitis Status: Acute (2) Methicillin resistant Staphylococcus epidermidis infection Status: Acute (3) Acute tubular necrosis Status: Acute (4) SOBIA (acute kidney injury) Status: Acute Clinical Quality Measures DVT/VTE Risk/Contraindication: Risk Factor Score Per Nursin RFS Level Per Nursing on Admit: 4+=Very High YOLIE CARRENO MD Jun 03, 2020 14:40
[2020-06-03] MEDS: ONDANSETRON 4 MG/2 ML (SDV) Z0FRAN IV PRN (14:47)
--- NOTE | 2020-06-03 15:56 | Diagnostic Imaging Report ---
PROCEDURE: CT abdomen and pelvis without contrast. TECHNIQUE: Multiple contiguous axial images were obtained through the abdomen and pelvis without the use of intravenous contrast. Auto Exposure Controls were utilized during the CT exam to meet ALARA standards for radiation dose reduction. INDICATION: Colitis and abdominal pain. Correlation is made with recent CT from 05/25/2020. Patient has developed small bilateral pleural effusions with associated infiltrate or atelectasis in the right lower lobe. There continues to be distention of the colon with borderline wall thickening. There is some fluid filled component to the right colon. No obstructing lesion is identified. There has been moderate fluid-filled distention developing in the small bowel since prior CT. No definite transition is identified to suggest obstruction. There is minimal free fluid in the abdomen and pelvis. There is no free air. No pneumatosis or portal venous gas is identified. Liver is unremarkable. Gallbladder is surgically absent. Pancreas and spleen are unremarkable. There is no adrenal mass. Kidneys are stable. Aorta is non-aneurysmal. Bladder is unremarkable. IMPRESSION: 1. Fluid-filled small and large bowel without evidence of obstructing lesion. Features are most suggestive of ileus. There may be some borderline wall thickening of the colon similar to prior exam. No other significant abnormality is detected. 2. Development of small bilateral pleural effusions with right basilar infiltrate or atelectasis. Dictated by: Dictated on workstation # [id number]
[2020-06-03 16:00] VITALS: BP 121/89
[2020-06-03] MEDS ORDERED: PROPOFOL INJECTION 50 ML IV ONE (16:59)
[2020-06-03] MEDS ORDERED: MIDAZOLAM 2 MG/2 ML (VERSED) VIAL ONE (17:00)
[2020-06-03] MEDS ORDERED: LACTATED RINGERS 1,000 ML IV ONE ×2 (17:11→17:45)
[2020-06-03] MEDS: cefTRIAXone FOR IV USE 2,000 MG in WATER (STERILE) FOR INJECTION 20 ML IV SCH (17:42)
[2020-06-03 17:45] VITALS: BP 118/71
--- NOTE | 2020-06-03 17:49 | Progress Note-Post Operative ---
Post-Operative Progess Note Surgeon (s)/Web Development Director (s) Surgeon NELIA PADILLA DO Web Development Director: na Pre-Operative Diagnosis abdominal distention, colitis Post-Operative Diagnosis ulcerative colits, colonic distention Procedure & Operative Findings Date of Procedure 06/03/20 Procedure Performed/Findings decompressive colonoscopy with cold biopsies Anesthesia Type per tool or die drawing checker Estimated Blood Loss Estimated blood loss (mL): scant Specimens/Packing Specimens Removed colon NELIA PADILLA DO Jun 03, 2020 17:49
[2020-06-03 17:50] VITALS: BP 129/78
[2020-06-03 17:55] VITALS: BP 147/90
[2020-06-03] MEDS ORDERED: methylPREDNISolone 40 MG/ML (Solu-MEDROL) VIAL IV SCH ×2 (18:00→20:00)
[2020-06-03] MEDS ORDERED: morphine INJ 4 MG/ML 1 ML (VIAL/SYRINGE) IVP PRN (18:45)
[2020-06-03] MEDS: ENOXAPARIN 40 MG/0.4 ML (LOVENOX) SYR SQ SCH (20:09)
[2020-06-03] MEDS ORDERED: methylPREDNISolone 40 MG/ML (Solu-MEDROL) VIAL IV NR (21:00)
[2020-06-04] VITALS: BP 127/87
--- NOTE | 2020-06-04 03:23 | OPERATIVE REPORT ---
DATE OF SERVICE: 06/03/2020 PREOPERATIVE DIAGNOSES: Abdominal distention, colitis. POSTOPERATIVE DIAGNOSES: Ulcerative colitis, colonic distention. PROCEDURE: Decompressive colonoscopy with cold biopsies. SURGEON: Nelia Reyes DO ANESTHESIA: Per FIELD CANE SCALER. ESTIMATED BLOOD LOSS: Scant. COMPLICATIONS: None. INDICATIONS: The patient is a 45-year-old male with CT scan findings consistent with colitis. The patient is having increasing abdominal distention and needing decompressive colonoscopy. The patient was discussed risks and benefits of procedure and wished to proceed with procedure. Consent was signed in the chart. DESCRIPTION OF PROCEDURE: The patient was taken to the endoscopy suite, placed in left lateral recumbent position. Timeout was performed. Digital rectal exam was performed demonstrating hemorrhoids. No palpable polyps, masses or ulcerations. Scope was inserted in the rectum, noting significant inflammatory changes within the rectum, which then continued to progress as the scope continued to be advanced through the rectum into the sigmoid and descending colon. Scope was able to pass through the transverse colon and continued to be advanced noting significant inflammation as continuous with significant distention throughout the colon. Irrigation and suction was continued to be performed. Scope was then continued through the transverse colon. At this time, was difficult to advance and then due to the risk of perforation, it was decided to abort further advancement. Scope was then continuously retracted back slowly. Just noting circumferential inflammatory changes throughout the transverse, descending, sigmoid and rectum. A couple cold biopsies were randomly obtained. As the scope was being retracted, it was continued to be suction decompressing the colon until completely removed. The patient tolerated procedure well without any complications, taken to recovery room in stable condition. Job ID: [id number] DocumentID: [id number] Dictated Date: 06/03/2020 19:51:48 Hazardous Material Technician Date: 06/04/2020 03:22:47 Dictated By: NELIA REYES DO
[2020-06-04] MEDS: metroNIDAZOLE 500MG/100ML IVPB 100 ML IV SCH ×3 (05:05→22:23)
[2020-06-04] MEDS: methylPREDNISolone 40 MG/ML (Solu-MEDROL) VIAL IV SCH ×3 (05:05→22:23)
[2020-06-04] MEDS: LACTATED RINGERS 1,000 ML IV SCH ×3 (05:05→21:14)
[2020-06-04 05:40] LABS: BASOPHILS # (AUTO) 0.1 10^3/uL (0.0-0.1); BASOPHILS % (AUTO) 1 % (0-10); EOSINOPHILS % (AUTO) 0 % (0-10); HEMATOCRIT 35 % (40-54); HEMOGLOBIN 11.6 g/dL (13.3-17.7); LYMPHOCYTES # (AUTO) 1.5 10^3/uL (1.0-4.0); LYMPHOCYTES % (AUTO) 14 % (12-44); MEAN CORPUSCULAR HEMOGLOBIN 30 pg (25-34); MEAN CORPUSCULAR HGB CONC 33 g/dL (32-36); MEAN CORPUSCULAR VOLUME 90 fL (80-99); MEAN PLATELET VOLUME 9.4 fL (9.0-12.2); MONOCYTES # (AUTO) 0.9 10^3/uL (0.0-1.0); MONOCYTES % (AUTO) 8 % (0-12); NEUTROPHILS # (AUTO) 8.4 10^3/uL (1.8-7.8); NEUTROPHILS % (AUTO) 77 % (42-75); PLATELET COUNT 509 10^3/uL (130-400); WHITE BLOOD COUNT 10.9 10^3/uL (4.3-11.0)
[2020-06-04 05:48] LABS: POTASSIUM 3.9 MMOL/L (3.6-5.0)
[2020-06-04 05:49] LABS: CALCIUM 7.6 MG/DL (8.5-10.1)
[2020-06-04 05:53] LABS: CREATININE SERUM 2.69 MG/DL (0.60-1.30)
--- NOTE | 2020-06-04 06:34 | Progress Note - Surgery ---
ASHLEY WATSON MED STUDENT 06/04/20 0634: Subjective Date Seen by a Provider: Jun 04, 2020 Time Seen by a Provider: 06:28 Subjective/Events-last exam Pt awake upon entering the room. BM x5, no flatus. Pain ranges between 2-3 or 4- 5/10 dependent on activity level. Pt complains of allergies/ post nasal drip and thirst. Pt states abdominal pressure has improved. Review of Systems General: No Chills; Fatigue HEENT: No Head Aches; Post Nasal Drip Pulmonary: Cough (with sputum) Cardiovascular: No: Chest Pain Gastrointestinal: No: Nausea, Vomiting Musculoskeletal: back pain Neurological: Weakness Polydipsia Objective Exam Vital Signs Date Time Temp Pulse Resp B/P (MAP) Pulse Ox O2 Delivery O2 Flow Rate FiO2 06/04/20 00:00 36.2 109 18 127/87 (100) 93 Room Air 06/03/20 20:10 Room Air 06/03/20 17:55 110 18 98 Room Air 06/03/20 17:50 107 18 98 OxyMask 6 06/03/20 17:45 108 18 98 OxyMask 8 06/03/20 16:00 36.2 115 18 121/89 (100) 92 Room Air 06/03/20 08:45 Room Air 06/03/20 07:40 36.1 116 20 138/96 (110) 95 Room Air I & O 06/04/20 07:00 Intake Total 1620 ml Output Total 1400 ml Balance 220 ml Capillary Refill : Less Than 3 Seconds General Appearance: No Apparent Distress, WD/WN HEENT: PERRL/EOMI, Normal ENT Inspection Neck: Normal Inspection, Non Tender Respiratory: Chest Non Tender, Normal Breath Sounds, No Accessory Muscle Use, No Respiratory Distress Cardiovascular: Regular Rate, Rhythm, No JVD, Tachycardia Gastrointestinal: normal bowel sounds, distended, tenderness (diffuse) Extremity: Non Tender, Swelling (Bilateral thighs/ knees) Neurologic/Psychiatric: Alert, Oriented x3 Skin: Normal Color, Warm/Dry Lymphatic: No Adenopathy Results Lab Laboratory Tests 06/03/20 17:15: Coronavirus 2019 (MAJOR) Negative 06/04/20 05:15: White Blood Count 10.9, Red Blood Count 3.88L, Hemoglobin 11.6L, Hematocrit 35L, Mean Corpuscular Volume 90, Mean Corpuscular Hemoglobin 30, Mean Corpuscular Hemoglobin Concent 33, Red Cell Distribution Width 15.1H, Platelet Count 509H, Mean Platelet Volume 9.4, Immature Granulocyte % (Auto) 1, Neutrophils (%) (Auto) 77H, Lymphocytes (%) (Auto) 14, Monocytes (%) (Auto) 8, Eosinophils (%) (Auto) 0, Basophils (%) (Auto) 1, Neutrophils # (Auto) 8.4H, Lymphocytes # (Auto) 1.5, Monocytes # (Auto) 0.9, Eosinophils # (Auto) 0.0, Basophils # (Auto) 0.1, Immature Granulocyte # (Auto) 0.1, Sodium Level 140, Potassium Level 3.9, Chloride Level 108H, Carbon Dioxide Level 23, Anion Gap 9, Blood Urea Nitrogen 27H, Creatinine 2.69H, Estimat Glomerular Filtration Rate 26, BUN/Creatinine Ratio 10, Glucose Level 91, Calcium Level 7.6L Microbiology 05/30/20 Blood Culture - Preliminary, Resulted No growth 05/29/20 Cryptosporidium/Giardia - Final, Complete Assessment/Plan Assessment/Plan Assessment/Plan Colitis, infectious vs inflammatory Leukocytosis - WBC down to 10.9 today Staph epidermidis bacteremia SOBIA- creatinine increased to 2.69 Add Solumedrol 40 Continue Abx, LR @150 Pain management and encourage IS and increased ambulation with PT Continue clear liquid diet, NPO if continued nausea Ct with dilatation of colon discussed risks and benefits of decompressive colonoscopy with him and who understand risks and benefits and wishes to proceed Patient discussed need to decrease narcotics and increase ambulation Clinical Quality Measures DVT/VTE Risk/Contraindication: Risk Factor Score Per Nursin RFS Level Per Nursing on Admit: 4+=Very High KONG REYES DO 06/04/202109: Subjective Subjective/Events-last exam Patient having multiple bowel movements. Pain is decreased. Patient still with distention but overall feeling better since colonoscopy and having steroids. Patient no new complaints. Denies any nausea vomiting fever sweats chills shortness of breath or chest pain. Patient n.p.o. and wanting something to drink. Objective Exam General Appearance: No Apparent Distress, WD/WN HEENT: PERRL/EOMI, Normal ENT Inspection Neck: Normal Inspection, Non Tender Respiratory: Chest Non Tender, No Accessory Muscle Use, No Respiratory Distress Cardiovascular: Regular Rate, Rhythm, No JVD Gastrointestinal: distended, tenderness (diffuse) Extremity: Non Tender, Swelling (Bilateral thighs/ knees) Neurologic/Psychiatric: Alert, Oriented x3 Skin: Normal Color, Warm/Dry Lymphatic: No Adenopathy Assessment/Plan Assessment/Plan Assessment/Plan Colitis, infectious vs inflammatory, possibly ulcerative colitis Leukocytosis - WBC down to 10.9 today Staph epidermidis bacteremia SOBIA- creatinine increased to 2.69 Status post decompressive colonoscopy with cold biopsies Solu-Medrol 20 mg IV every 8 Continue Abx, LR @150 Pain management and encourage IS and increased ambulation with PT NPO currently if distention decreasing and continues to feel better will consider starting clears tomorrow. Patient discussed need to decrease narcotics and increase ambulation Continue medical management Continue IV antibiotics. Supervisory-Addendum Brief Verification & Attestation Participated in pt care: history, MDM, physical Personally performed: exam, history, MDM, supervision of care Care discussed with: Medical Student Procedures: n/a Results interpretation: Verified all documentation Verification and Attestation of Medical Student E/M Service A medical student performed and documented this service in my presence. I reviewed and verified all information documented by the medical student and made modifications to such information, when appropriate. I personally performed the physical exam and medical decision making. Kong Reyes, Jun 04, 2020,21:10 ASHLEY WATSON MED STUDENT Jun 04, 2020 06:34 KONG REYES DO Jun 04, 2020 21:10
[2020-06-04 08:00] VITALS: BP 136/92
[2020-06-04] MEDS: PANTOPRAZOLE 40 MG (PROTONIX) VIAL IV SCH (09:04)
--- NOTE | 2020-06-04 12:03 | NUR ---
PT AMBULATED APPROX 180FT IN [place] WITH STAND BY ASSIST/WALKER.
--- NOTE | 2020-06-04 12:31 | Progress Note - Hospitalist ---
Subjective HPI/CC On Admission Date Seen by Provider: Jun 04, 2020 Time Seen by Provider: 10:00 Pt is a 45yoCM who presented to the ER due to abdominal pain. He has been seen in the ER on 05/20, 05/23, and 05/25 for similar symptoms and was treated with antibiotics for colitis per his CT findings. He was referred to Dr Reyes and sa tati tucker on 05/26 and his antibiotics were changed to oral Levaquin and Flagyl. He returned to the ER 05/29 due to worsening abdominal pain and difficulty keeping any oral intake down. He states his pain is persistent still but responds to morphine. Subjective/Events-last exam He is feeling a little bit better today. His abdominal pain has improved since the colonoscopy. He is still feeling distended and swollen. He is feeling thirsty. Objective Exam Vital Signs Vital Signs Date Time Temp Pulse Resp B/P (MAP) Pulse Ox O2 Delivery O2 Flow Rate FiO2 06/04/20 08:00 35.9 102 20 136/92 (107) 92 Room Air 06/03/20 17:50 6 Capillary Refill : Less Than 3 SecondsLess Than 3 Seconds General Appearance: No Apparent Distress, Obese Respiratory: Lungs Clear, Normal Breath Sounds, No Respiratory Distress Cardiovascular: Regular Rate, Rhythm, No Edema, No Murmur Gastrointestinal: Soft, Abnormal Bowel Sounds (hypoactive), Distended, Tenderness Extremity: Normal Inspection, Non Tender, No Pedal Edema Neurologic/Psychiatric: Alert, Oriented x3, No Motor/Sensory Deficits, Normal Mood/Affect Skin: Normal Color Results/Procedures Lab Laboratory Tests 06/04/20 05:15 Patient resulted labs reviewed. Imaging: Reviewed Imaging Report Assessment/Plan Assessment and Plan Assess & Plan/Chief Complaint Colitis Continue Rocephin and Flagyl Continue pain regimen NPO Surgery consulted, appreciate recs CT Abdomen showed severely dilated colon Colonoscopy performed for decompression revealed severe colitis, concerning for ulcerative colitis Continue Solumedrol Possible MRSE bacteremia Vancomycin toxicity Acute tubular necrosis Acute kidney injury s/p course of Vancomycin, now stopped IV fluids GERD Protonix DVT ppx: Lovenox Diagnosis/Problems Diagnosis/Problems (1) Colitis Status: Acute (2) Methicillin resistant Staphylococcus epidermidis infection Status: Acute (3) Acute tubular necrosis Status: Acute (4) SOBIA (acute kidney injury) Status: Acute Clinical Quality Measures DVT/VTE Risk/Contraindication: Risk Factor Score Per Nursin RFS Level Per Nursing on Admit: 4+=Very High YOLIE CARRENO MD Jun 04, 2020 12:31
[2020-06-04] MEDS: cefTRIAXone FOR IV USE 2,000 MG in WATER (STERILE) FOR INJECTION 20 ML IV SCH (14:16)
--- NOTE | 2020-06-04 14:31 | NUR ---
ROCEPHIN GIVEN VIA MINI INFUSER, LR STOPPED AND DISCONNECTED DURING ADMINISTRATION
[2020-06-04 16:00] VITALS: BP 144/90
[2020-06-04] MEDS: ENOXAPARIN 40 MG/0.4 ML (LOVENOX) SYR SQ SCH (18:32)
[2020-06-04] MEDS ORDERED: ENOXAPARIN 30 MG/0.3 ML (LOVENOX) SYR SC SCH (19:00)
[2020-06-04] MEDS: oxyCODONE/APAP 5/325MG (PERCOCET 5) TABLET PO PRN (19:43)
[2020-06-05] VITALS: BP 144/94
[2020-06-05] MEDS: LACTATED RINGERS 1,000 ML IV SCH ×4 (05:08→22:13)
[2020-06-05] MEDS: metroNIDAZOLE 500MG/100ML IVPB 100 ML IV SCH ×3 (06:31→22:31)
[2020-06-05] MEDS: methylPREDNISolone 40 MG/ML (Solu-MEDROL) VIAL IV SCH ×3 (06:31→22:31)
[2020-06-05 06:48] LABS: BASOPHILS % (AUTO) 0 % (0-10); EOSINOPHILS % (AUTO) 0 % (0-10); HEMATOCRIT 36 % (40-54); HEMOGLOBIN 11.8 g/dL (13.3-17.7); LYMPHOCYTES # (AUTO) 1.5 10^3/uL (1.0-4.0); LYMPHOCYTES % (AUTO) 14 % (12-44); MEAN CORPUSCULAR HEMOGLOBIN 30 pg (25-34); MEAN CORPUSCULAR HGB CONC 33 g/dL (32-36); MEAN CORPUSCULAR VOLUME 90 fL (80-99); MEAN PLATELET VOLUME 9.5 fL (9.0-12.2); MONOCYTES # (AUTO) 1.2 10^3/uL (0.0-1.0); MONOCYTES % (AUTO) 11 % (0-12); NEUTROPHILS # (AUTO) 7.9 10^3/uL (1.8-7.8); NEUTROPHILS % (AUTO) 72 % (42-75); PLATELET COUNT 546 10^3/uL (130-400); WHITE BLOOD COUNT 10.9 10^3/uL (4.3-11.0)
--- NOTE | 2020-06-05 07:10 | Progress Note - Surgery ---
ASHLEY WATSON MED STUDENT 06/05/20 0709: Subjective Date Seen by a Provider: Jun 05, 2020 Time Seen by a Provider: 07:06 Subjective/Events-last exam Pt awake upon entering room. Pt notes he walked yesterday as far as [he] could go. Pt complains of increased fatigue as well as thirst/ hunger. Pt notes no abdominal pain despite continued distention. Pt notes BM and flatus yesterday. Review of Systems General: Fatigue Pulmonary: Dyspnea (On exersion and conversation) Cardiovascular: No: Chest Pain Gastrointestinal: Diarrhea; No: Abdominal Pain Musculoskeletal: back pain Polydipsia Objective Exam Vital Signs Date Time Temp Pulse Resp B/P (MAP) Pulse Ox O2 Delivery O2 Flow Rate FiO2 06/05/20 00:00 36.0 102 20 144/94 (111) 94 Room Air 06/04/20 19:45 Room Air 06/04/20 16:00 36.6 101 18 144/90 (108) 94 Room Air 06/04/20 08:00 35.9 102 20 136/92 (107) 92 Room Air 06/04/20 08:00 Room Air I & O 06/05/20 07:00 Intake Total 2000 ml Balance 2000 ml Capillary Refill : Less Than 3 SecondsLess Than 3 Seconds General Appearance: No Apparent Distress, WD/WN HEENT: PERRL/EOMI, Normal ENT Inspection Neck: Normal Inspection, Non Tender Respiratory: Chest Non Tender, Lungs Clear, Normal Breath Sounds, No Accessory Muscle Use, No Respiratory Distress Cardiovascular: Regular Rate, Rhythm, No JVD Gastrointestinal: distended; No tenderness Extremity: Non Tender, Swelling (Bilateral thighs/ knees) Neurologic/Psychiatric: Alert, Oriented x3 Skin: Normal Color, Warm/Dry Lymphatic: No Adenopathy Results Lab Laboratory Tests 06/05/20 06:35: Microbiology 05/30/20 Blood Culture - Final, Complete No growth 05/29/20 Cryptosporidium/Giardia - Final, Complete Assessment/Plan Assessment/Plan Assessment/Plan Colitis, infectious vs inflammatory, possibly ulcerative colitis Leukocytosis - WBC down to 10.9 yesterday Staph epidermidis bacteremia SOBIA- creatinine increased to 2.69 yesterday Status post decompressive colonoscopy with cold biopsies Solu-Medrol 20 mg IV every 8 Continue Abx, LR @150 Pain management and encourage IS and increased ambulation with PT NPO currently if distention decreasing and continues to feel better will consider starting clears tomorrow. Patient discussed need to decrease narcotics and increase ambulation Continue medical management Continue IV antibiotics. Clinical Quality Measures DVT/VTE Risk/Contraindication: Risk Factor Score Per Nursin RFS Level Per Nursing on Admit: 4+=Very High NELIA REYES DO 06/05/20 1435: Subjective Subjective/Events-last exam Patient with having flatus and bowel movements. Bowels are primarily liquid. Multiple. Patient states his abdomen is feeling better. He is ambulating but feeling weak. He denies any nausea vomiting fever sweats chills shortness of breath or chest pain at this time. Objective Exam General Appearance: No Apparent Distress, WD/WN HEENT: PERRL/EOMI, Normal ENT Inspection Neck: Normal Inspection, Non Tender Respiratory: Chest Non Tender, No Accessory Muscle Use, No Respiratory Distress Cardiovascular: Regular Rate, Rhythm, No JVD Gastrointestinal: distended, tenderness (Minimal diffuse) Extremity: Non Tender, Swelling (Lower extremity) Neurologic/Psychiatric: Alert, Oriented x3 Skin: Normal Color, Warm/Dry Lymphatic: No Adenopathy Assessment/Plan Assessment/Plan Assessment/Plan Colitis, infectious vs inflammatory, possibly ulcerative colitis Leukocytosis Staph epidermidis bacteremia SOBIA- Status post decompressive colonoscopy with cold biopsies Solu-Medrol 20 mg IV every 8 Continue Abx, LR @150 Pain management and encourage IS and increased ambulation with PT Start clears Patient discussed need to decrease narcotics and increase ambulation Continue medical management Continue IV antibiotics. Supervisory-Addendum Brief Verification & Attestation Participated in pt care: history, MDM, physical Personally performed: exam, history, MDM, supervision of care Care discussed with: Medical Student Procedures: n/a Results interpretation: Verified all documentation Verification and Attestation of Medical Student E/M Service A medical student performed and documented this service in my presence. I reviewed and verified all information documented by the medical student and made modifications to such information, when appropriate. I personally performed the physical exam and medical decision making. Nelia Reyes, Jun 05, 2020,14:34 ASHLEY WATSON MED STUDENT Jun 05, 2020 07:09 NELIA REYES DO Jun 05, 2020 14:35
[2020-06-05 07:12] LABS: CALCIUM 7.8 MG/DL (8.5-10.1)
[2020-06-05 07:16] LABS: CREATININE SERUM 2.42 MG/DL (0.60-1.30)
[2020-06-05 08:00] VITALS: BP 153/90
[2020-06-05] MEDS: PANTOPRAZOLE 40 MG (PROTONIX) VIAL IV SCH (08:23)
[2020-06-05] MEDS: cefTRIAXone FOR IV USE 2,000 MG in WATER (STERILE) FOR INJECTION 20 ML IV SCH (13:48)
--- NOTE | 2020-06-05 15:29 | Progress Note - Hospitalist ---
Subjective HPI/CC On Admission Date Seen by Provider: Jun 05, 2020 Time Seen by Provider: 10:15 Pt is a 45yoCM who presented to the ER due to abdominal pain. He has been seen in the ER on 05/20, 05/23, and 05/25 for similar symptoms and was treated with antibiotics for colitis per his CT findings. He was referred to Dr Reyes and sa tati tucker on 05/26 and his antibiotics were changed to oral Levaquin and Flagyl. He returned to the ER 05/29 due to worsening abdominal pain and difficulty keeping any oral intake down. He states his pain is persistent still but responds to morphine. Subjective/Events-last exam His abdominal pain is improved. He still remains weak. He has been feeling hungry. He denies any fevers. He denies any bloody stools. He has no other complaints or concerns. Objective Exam Vital Signs Vital Signs Date Time Temp Pulse Resp B/P (MAP) Pulse Ox O2 Delivery O2 Flow Rate FiO2 06/05/20 08:00 36.0 74 18 153/90 (111) 96 Room Air 06/03/20 17:50 6 Capillary Refill : Less Than 3 SecondsLess Than 3 Seconds General Appearance: No Apparent Distress, Anxious, Obese Respiratory: Lungs Clear, Normal Breath Sounds, No Respiratory Distress Cardiovascular: Regular Rate, Rhythm, No Edema, No Murmur Gastrointestinal: Normal Bowel Sounds, Soft, Distended, Tenderness Extremity: Normal Inspection, Non Tender, No Pedal Edema Neurologic/Psychiatric: Alert, Oriented x3, No Motor/Sensory Deficits, Normal Mood/Affect Skin: Normal Color, Warm/Dry Results/Procedures Lab Laboratory Tests 06/05/20 06:35 Patient resulted labs reviewed. Imaging: Reviewed Imaging Report Assessment/Plan Assessment and Plan Assess & Plan/Chief Complaint Colitis Surgery consulted, appreciate recs CT Abdomen showed severely dilated colon Colonoscopy performed for decompression revealed severe colitis, concerning for ulcerative colitis Continue Solumedrol Continue Rocephin and Flagyl Continue pain regimen Check H pylori Advance diet Possible MRSE bacteremia Vancomycin toxicity Acute tubular necrosis Acute kidney injury s/p course of Vancomycin, now stopped IV fluids GERD Protonix DVT ppx: Lovenox Diagnosis/Problems Diagnosis/Problems (1) Colitis Status: Acute (2) Methicillin resistant Staphylococcus epidermidis infection Status: Acute (3) Acute tubular necrosis Status: Acute (4) SOBIA (acute kidney injury) Status: Acute Clinical Quality Measures DVT/VTE Risk/Contraindication: Risk Factor Score Per Nursin RFS Level Per Nursing on Admit: 4+=Very High YOLIE CARRENO MD Jun 05, 2020 15:29
[2020-06-05 15:56] VITALS: BP 150/94
--- NOTE | 2020-06-05 17:15 | NUR ---
PT AMBULATED APPROX 180FT IN [place] WITH STAND BY ASSIST/WALKER.
[2020-06-05] MEDS: ENOXAPARIN 40 MG/0.4 ML (LOVENOX) SYR SQ SCH (18:26)
[2020-06-05] MEDS: oxyCODONE/APAP 5/325MG (PERCOCET 5) TABLET PO PRN (20:22)
[2020-06-06] VITALS: BP 160/90
[2020-06-06] MEDS: metroNIDAZOLE 500MG/100ML IVPB 100 ML IV SCH (06:03)
[2020-06-06] MEDS: methylPREDNISolone 40 MG/ML (Solu-MEDROL) VIAL IV SCH (06:04)
[2020-06-06] MEDS: LACTATED RINGERS 1,000 ML IV SCH (06:04)
[2020-06-06 06:39] LABS: POTASSIUM 3.9 MMOL/L (3.6-5.0)
[2020-06-06 06:40] LABS: CALCIUM 7.5 MG/DL (8.5-10.1)
[2020-06-06 06:44] LABS: CREATININE SERUM 2.15 MG/DL (0.60-1.30)
--- NOTE | 2020-06-06 07:32 | Progress Note - Surgery ---
OMAR BAIRD MED STUDENT 06/06/20 0732: Subjective Date Seen by a Provider: Jun 06, 2020 Time Seen by a Provider: 07:10 Subjective/Events-last exam Patient says he is feeling better but "still not 100%". He denies any pain or nausea. He reports several loose and watery bowel movements in the last couple days since his colonoscopy. Objective Exam Vital Signs Date Time Temp Pulse Resp B/P (MAP) Pulse Ox O2 Delivery O2 Flow Rate FiO2 06/06/20 00:00 36.3 89 18 160/90 (113) 96 Room Air 06/05/20 20:20 Room Air 06/05/20 15:56 36.4 99 18 150/94 (112) 96 Room Air 06/05/20 08:00 36.0 74 18 153/90 (111) 96 Room Air 06/05/20 08:00 Room Air I & O 06/06/20 07:00 Intake Total 1790 ml Balance 1790 ml Capillary Refill : Less Than 3 SecondsLess Than 3 Seconds General Appearance: No Apparent Distress; No Anxious; Obese HEENT: PERRL/EOMI, Normal ENT Inspection Neck: Normal Inspection, Non Tender Respiratory: Lungs Clear, Normal Breath Sounds, No Respiratory Distress Cardiovascular: Regular Rate, Rhythm, No Edema, No Murmur Peripheral Pulses: 2+ Radial Pulses (R), 2+ Radial Pulses (L) Gastrointestinal: distended; No tenderness Extremity: Normal Capillary Refill, Normal Inspection, Non Tender; No No Pedal Edema; Pedal Edema Neurologic/Psychiatric: Alert, Oriented x3, No Motor/Sensory Deficits, Normal Mood/Affect Skin: Normal Color, Warm/Dry Lymphatic: No Adenopathy Results Lab Laboratory Tests 06/05/20 13:05: Stool Helicobacter pylori Antigen PositiveH 06/06/20 00:00: 06/06/20 06:15: Sodium Level 139, Potassium Level 3.9, Chloride Level 106, Carbon Dioxide Level 23, Anion Gap 10, Blood Urea Nitrogen 25H, Creatinine 2.15H, Estimat Glomerular Filtration Rate 34, BUN/Creatinine Ratio 12, Glucose Level 163H, Calcium Level 7.5L Microbiology 05/30/20 Blood Culture - Final, Complete No growth 05/29/20 Cryptosporidium/Giardia - Final, Complete Assessment/Plan Assessment/Plan Assessment/Plan Colitis, infectious vs inflammatory, possibly ulcerative colitis - improvement seen since decompressive colonoscopy 3 days ago Leukocytosis - resolved Staph epidermidis bacteremia - on antibiotics SOBIA- avoid Vanc Status post decompressive colonoscopy with cold biopsies GERD Solu-Medrol 20 mg IV every 8 Continue Abx, LR @150 Pain management and encourage IS and increased ambulation with PT Advance to full liquids Patient discussed need to decrease narcotics and increase ambulation Continue medical management Continue ceph and metro Continue protonix C Clinical Quality Measures DVT/VTE Risk/Contraindication: Risk Factor Score Per Nursin RFS Level Per Nursing on Admit: 4+=Very High NELIA REYES DO 06/06/202130: Subjective Subjective/Events-last exam Patient states he is feeling better. He is having diarrhea. Passing little bit of flatus. Patient's pain almost resolved feeling much better. Tolerating clears. Denies nausea vomiting fever sweats chills shortness of breath or chest pain at this time. Objective Exam General Appearance: No Apparent Distress, Obese HEENT: PERRL/EOMI, Normal ENT Inspection Neck: Normal Inspection, Non Tender Respiratory: Chest Non Tender, No Accessory Muscle Use, No Respiratory Distress Cardiovascular: Regular Rate, Rhythm, No JVD Gastrointestinal: distended (Less), tenderness (Minimal diffuse significantly improved compared to yesterday.) Extremity: Non Tender, Pedal Edema Neurologic/Psychiatric: Alert, Oriented x3, No Motor/Sensory Deficits, Normal Mood/Affect Skin: Normal Color, Warm/Dry Lymphatic: No Adenopathy Assessment/Plan Assessment/Plan Assessment/Plan Colitis, infectious vs inflammatory, possibly ulcerative colitis - improvement seen since decompressive colonoscopy and on steroids Leukocytosis Staph epidermidis bacteremia - on antibiotics SOBIA Status post decompressive colonoscopy with cold biopsies GERD Solu-Medrol 20 mg IV every 8 Continue Abx, LR @100 Pain management and encourage IS and increased ambulation with PT Advance diet as able to tolerate Continue medical management No surgical intervention, patient wanting to avoid any surgical intervention Supervisory-Addendum Brief Verification & Attestation Participated in pt care: history, MDM, physical Personally performed: exam, history, MDM, supervision of care Care discussed with: Medical Student Procedures: n/a Results interpretation: Verified all documentation Verification and Attestation of Medical Student E/M Service A medical student performed and documented this service in my presence. I reviewed and verified all information documented by the medical student and made modifications to such information, when appropriate. I personally performed the physical exam and medical decision making. Nelia Reyes, Jun 06, 2020,08:31 OMAR BAIRD MED STUDENT Jun 06, 2020 07:32 NELIA REYES DO Jun 06, 2020 21:31
[2020-06-06 08:00] VITALS: BP 147/85
[2020-06-06] MEDS: PANTOPRAZOLE 40 MG (PROTONIX) TAB PO SCH ×2 (08:16→20:56)
[2020-06-06] MEDS ORDERED: LACTATED RINGERS 1,000 ML IV SCH (08:30)
[2020-06-06 08:35] LABS: BASOPHILS % (AUTO) 0 % (0-10); EOSINOPHILS % (AUTO) 0 % (0-10); HEMATOCRIT 33 % (40-54); HEMOGLOBIN 11.2 g/dL (13.3-17.7); LYMPHOCYTES # (AUTO) 1.2 10^3/uL (1.0-4.0); LYMPHOCYTES % (AUTO) 10 % (12-44); MEAN CORPUSCULAR HEMOGLOBIN 30 pg (25-34); MEAN CORPUSCULAR HGB CONC 34 g/dL (32-36); MEAN CORPUSCULAR VOLUME 89 fL (80-99); MEAN PLATELET VOLUME 9.5 fL (9.0-12.2); MONOCYTES # (AUTO) 0.9 10^3/uL (0.0-1.0); MONOCYTES % (AUTO) 8 % (0-12); NEUTROPHILS # (AUTO) 8.8 10^3/uL (1.8-7.8); NEUTROPHILS % (AUTO) 79 % (42-75); PLATELET COUNT 468 10^3/uL (130-400); WHITE BLOOD COUNT 11.1 10^3/uL (4.3-11.0)
[2020-06-06] MEDS: ONDANSETRON 4 MG/2 ML (SDV) Z0FRAN IV PRN (10:18)
[2020-06-06] MEDS ORDERED: predniSONE 20 MG TAB PO ONE (12:45)
[2020-06-06] MEDS: metroNIDAZOLE 250 MG (FLAGYL) TAB PO SCH ×3 (14:04→20:56)
[2020-06-06] MEDS: BISMUTH SUBSALICYLATE 240 ML (PEPTO BISMOL) PO SCH ×3 (14:21→20:57)
--- NOTE | 2020-06-06 15:42 | Progress Note - Hospitalist ---
Subjective HPI/CC On Admission Date Seen by Provider: Jun 06, 2020 Time Seen by Provider: 09:25 Pt is a 45yoCM who presented to the ER due to abdominal pain. He has been seen in the ER on 05/20, 05/23, and 05/25 for similar symptoms and was treated with antibiotics for colitis per his CT findings. He was referred to Dr Reyes and sa tati tucker on 05/26 and his antibiotics were changed to oral Levaquin and Flagyl. He returned to the ER 05/29 due to worsening abdominal pain and difficulty keeping any oral intake down. He states his pain is persistent still but responds to morphine. Subjective/Events-last exam he is still feeling bloated. He is not having any significant abdominal pain. He is not having any fevers. He has been having diarrhea. Objective Exam Vital Signs Vital Signs Date Time Temp Pulse Resp B/P (MAP) Pulse Ox O2 Delivery O2 Flow Rate FiO2 06/06/20 08:00 36.0 81 18 147/85 (105) 97 Room Air 06/06/20 08:00 6.00 Capillary Refill : Less Than 3 SecondsLess Than 3 Seconds General Appearance: No Apparent Distress, Anxious, Obese Respiratory: Lungs Clear, Normal Breath Sounds, No Respiratory Distress Cardiovascular: Regular Rate, Rhythm, No Edema, No Murmur Gastrointestinal: Normal Bowel Sounds, Non Tender, Soft Extremity: Normal Inspection, Non Tender, No Pedal Edema Neurologic/Psychiatric: Alert, Oriented x3, No Motor/Sensory Deficits, Normal Mood/Affect Skin: Normal Color, Warm/Dry Results/Procedures Lab Laboratory Tests 06/06/20 06:15 06/06/20 08:25 Patient resulted labs reviewed. Imaging: Reviewed Imaging Report Assessment/Plan Assessment and Plan Assess & Plan/Chief Complaint Colitis Surgery consulted, appreciate recs CT Abdomen showed severely dilated colon Colonoscopy performed for decompression revealed severe colitis, concerning for ulcerative colitis Transition to oral Prednisone Continue pain regimen Advance diet as tolerated H pylori infection Begin Protonix, Bismuth, Tetracycline, and Flagyl Possible MRSE bacteremia Vancomycin toxicity Acute tubular necrosis Acute kidney injury s/p course of Vancomycin, now stopped IV fluids GERD Protonix DVT ppx: Lovenox Diagnosis/Problems Diagnosis/Problems (1) Colitis Status: Acute (2) Methicillin resistant Staphylococcus epidermidis infection Status: Acute (3) Acute tubular necrosis Status: Acute (4) SOBIA (acute kidney injury) Status: Acute (5) H. pylori infection Status: Acute Clinical Quality Measures DVT/VTE Risk/Contraindication: Risk Factor Score Per Nursin RFS Level Per Nursing on Admit: 4+=Very High YOLIE CARRENO MD Jun 06, 2020 15:42
[2020-06-06 16:16] VITALS: BP 160/102
[2020-06-06] MEDS: TETRACYCLINE 250 MG PO SCH (17:36)
[2020-06-06] MEDS: ENOXAPARIN 40 MG/0.4 ML (LOVENOX) SYR SQ SCH (18:13)
[2020-06-06] MEDS: oxyCODONE/APAP 5/325MG (PERCOCET 5) TABLET PO PRN (18:25)
[2020-06-07 00:01] VITALS: BP 153/90
[2020-06-07] MEDS: TETRACYCLINE 250 MG PO SCH ×4 (00:27→18:00)
[2020-06-07] MEDS: ONDANSETRON 4 MG/2 ML (SDV) Z0FRAN IV PRN ×2 (00:27→18:05)
[2020-06-07] MEDS: oxyCODONE/APAP 5/325MG (PERCOCET 5) TABLET PO PRN ×2 (03:25→20:32)
[2020-06-07] MEDS: predniSONE 20 MG TAB PO SCH (05:58)
[2020-06-07 06:18] LABS: BASOPHILS # (AUTO) 0.1 10^3/uL (0.0-0.1); BASOPHILS % (AUTO) 0 % (0-10); EOSINOPHILS # (AUTO) 0.1 10^3/uL (0.0-0.3); EOSINOPHILS % (AUTO) 1 % (0-10); HEMATOCRIT 35 % (40-54); HEMOGLOBIN 11.7 g/dL (13.3-17.7); LYMPHOCYTES # (AUTO) 1.7 10^3/uL (1.0-4.0); LYMPHOCYTES % (AUTO) 13 % (12-44); MEAN CORPUSCULAR HEMOGLOBIN 30 pg (25-34); MEAN CORPUSCULAR HGB CONC 33 g/dL (32-36); MEAN CORPUSCULAR VOLUME 89 fL (80-99); MEAN PLATELET VOLUME 9.7 fL (9.0-12.2); MONOCYTES # (AUTO) 1.3 10^3/uL (0.0-1.0); MONOCYTES % (AUTO) 9 % (0-12); NEUTROPHILS # (AUTO) 9.9 10^3/uL (1.8-7.8); NEUTROPHILS % (AUTO) 74 % (42-75); PLATELET COUNT 450 10^3/uL (130-400); WHITE BLOOD COUNT 13.3 10^3/uL (4.3-11.0)
[2020-06-07 06:23] LABS: POTASSIUM 3.6 MMOL/L (3.6-5.0)
[2020-06-07 06:24] LABS: CALCIUM 7.5 MG/DL (8.5-10.1)
[2020-06-07 06:28] LABS: CREATININE SERUM 1.92 MG/DL (0.60-1.30)
[2020-06-07 07:40] VITALS: BP 156/95
--- NOTE | 2020-06-07 08:52 | Progress Note - Surgery ---
Subjective Date Seen by a Provider: Jun 07, 2020 Time Seen by a Provider: 08:47 Subjective/Events-last exam Passing flatus and having bm's. Feeling better. Tolerating PO. Not using IS or ambulating much. Denies n/v fever sweats chills shortness of breath or chest pain. Objective Exam Vital Signs Date Time Temp Pulse Resp B/P (MAP) Pulse Ox O2 Delivery O2 Flow Rate FiO2 06/07/20 07:40 36.0 82 16 156/95 (115) 96 Room Air 06/07/20 00:01 36.4 75 20 153/90 (111) 95 Room Air 06/06/20 19:40 Room Air 06/06/20 16:16 36.0 80 20 160/102 (121) 97 Room Air I & O 06/07/20 07:00 Intake Total 2060 ml Balance 2060 ml Capillary Refill : Less Than 3 SecondsLess Than 3 Seconds General Appearance: No Apparent Distress, Obese HEENT: PERRL/EOMI, Normal ENT Inspection Neck: Normal Inspection, Non Tender Respiratory: Chest Non Tender, No Accessory Muscle Use, No Respiratory Distress Cardiovascular: Regular Rate, Rhythm, No JVD Peripheral Pulses: 2+ Radial Pulses (R), 2+ Radial Pulses (L) Gastrointestinal: non tender, distended (minimally); No tenderness Extremity: Non Tender, Pedal Edema Neurologic/Psychiatric: Alert, Oriented x3, No Motor/Sensory Deficits, Normal Mood/Affect Skin: Normal Color, Warm/Dry Lymphatic: No Adenopathy Results Lab Laboratory Tests 06/07/20 05:44: White Blood Count 13.3H, Red Blood Count 3.97L, Hemoglobin 11.7L, Hematocrit 35L , Mean Corpuscular Volume 89, Mean Corpuscular Hemoglobin 30, Mean Corpuscular Hemoglobin Concent 33, Red Cell Distribution Width 14.4, Platelet Count 450H, Mean Platelet Volume 9.7, Immature Granulocyte % (Auto) 3, Neutrophils (%) (Auto) 74, Lymphocytes (%) (Auto) 13, Monocytes (%) (Auto) 9, Eosinophils (%) (Auto) 1, Basophils (%) (Auto) 0, Neutrophils # (Auto) 9.9H, Lymphocytes # (Auto) 1.7, Monocytes # (Auto) 1.3H, Eosinophils # (Auto) 0.1, Basophils # (Auto) 0.1, Immature Granulocyte # (Auto) 0.3H, Sodium Level 138, Potassium Level 3.6, Chloride Level 105, Carbon Dioxide Level 23, Anion Gap 10, Blood Urea Nitrogen 22H, Creatinine 1.92H, Estimat Glomerular Filtration Rate 38, BUN/Creatinine Ratio 11, Glucose Level 106H, Calcium Level 7.5L Microbiology 05/30/20 Blood Culture - Final, Complete No growth 05/29/20 Cryptosporidium/Giardia - Final, Complete Assessment/Plan Assessment/Plan Assessment/Plan Colitis, infectious vs inflammatory, possibly ulcerative colitis - improvement seen since decompressive colonoscopy and on steroids Leukocytosis Staph epidermidis bacteremia - on antibiotics SOBIA Status post decompressive colonoscopy with cold biopsies GERD H pylori Convert PO Continue Abx, LR @100 Pain management and encourage IS and increased ambulation Advance diet as able to tolerate Path showing inflammatory bowel disease- will need follow up with GI No surgical intervention, any worsening be seen at that time. Clinical Quality Measures DVT/VTE Risk/Contraindication: Risk Factor Score Per Nursin RFS Level Per Nursing on Admit: 4+=Very High NELIA PADILLA DO Jun 07, 2020 08:52
[2020-06-07] MEDS: PANTOPRAZOLE 40 MG (PROTONIX) TAB PO SCH ×2 (09:09→20:32)
[2020-06-07] MEDS: metroNIDAZOLE 250 MG (FLAGYL) TAB PO SCH ×4 (09:09→20:31)
[2020-06-07] MEDS: BISMUTH SUBSALICYLATE 240 ML (PEPTO BISMOL) PO SCH ×4 (09:10→20:32)
--- NOTE | 2020-06-07 11:46 | Progress Note - Hospitalist ---
Subjective HPI/CC On Admission Date Seen by Provider: Jun 07, 2020 Time Seen by Provider: 08:50 Pt is a 45yoCM who presented to the ER due to abdominal pain. He has been seen in the ER on 05/20, 05/23, and 05/25 for similar symptoms and was treated with antibiotics for colitis per his CT findings. He was referred to Dr Reyes and sa tati tucker on 05/26 and his antibiotics were changed to oral Levaquin and Flagyl. He returned to the ER 05/29 due to worsening abdominal pain and difficulty keeping any oral intake down. He states his pain is persistent still but responds to morphine. Subjective/Events-last exam he is feeling a bit better today. He has not had anymore nausea or vomiting. He does not want to advance his diet. He denies abdominal pain. He is still having some bloating. He remains anxious. Objective Exam Vital Signs Vital Signs Date Time Temp Pulse Resp B/P (MAP) Pulse Ox O2 Delivery O2 Flow Rate FiO2 06/07/20 08:00 97 Room Air 6.00 06/07/20 07:40 36.0 82 16 156/95 (115) Capillary Refill : Less Than 3 SecondsLess Than 3 Seconds General Appearance: No Apparent Distress, Anxious, Obese Respiratory: Lungs Clear, Normal Breath Sounds, No Respiratory Distress Cardiovascular: Regular Rate, Rhythm, No Edema, No Murmur Gastrointestinal: Normal Bowel Sounds, Soft, Distended Extremity: Normal Inspection, Non Tender, Pedal Edema Neurologic/Psychiatric: Alert, Oriented x3, No Motor/Sensory Deficits Skin: Normal Color, Warm/Dry Results/Procedures Lab Laboratory Tests 06/07/20 05:44 Patient resulted labs reviewed. Imaging: Reviewed Imaging Report Assessment/Plan Assessment and Plan Assess & Plan/Chief Complaint Inflammatory bowel disease Colitis Surgery consulted, appreciate recs CT Abdomen showed severely dilated colon Colonoscopy performed for decompression revealed severe colitis, concerning for ulcerative colitis Pathology consistent with chronic idiopathic inflammatory bowel disease Continue Prednisone Advance diet as tolerated Will need outpatient GI follow up H pylori infection Continue quad therapy: Protonix, Bismuth, Tetracycline, Flagyl Possible MRSE bacteremia Vancomycin adverse reaction Acute tubular necrosis Acute kidney injury s/p course of Vancomycin, now stopped Renal function improving IV fluids GERD Protonix DVT ppx: Lovenox Diagnosis/Problems Diagnosis/Problems (1) Inflammatory bowel disease Status: Acute (2) Colitis Status: Acute (3) Vancomycin adverse reaction Status: Acute Qualifiers: Encounter type: initial encounter Qualified Codes: T36.8X5A - Adverse effect of other systemic antibiotics, initial encounter (4) Acute tubular necrosis Status: Acute (5) SOBIA (acute kidney injury) Status: Acute (6) H. pylori infection Status: Acute (7) Methicillin resistant Staphylococcus epidermidis infection Status: Resolved Resolution Date/Time: 06/07/20 @ 11:44 Clinical Quality Measures DVT/VTE Risk/Contraindication: Risk Factor Score Per Nursin RFS Level Per Nursing on Admit: 4+=Very High YOLIE CARRENO MD Jun 07, 2020 11:46
[2020-06-07 16:00] VITALS: BP 147/93
--- NOTE | 2020-06-07 16:25 | NUR ---
Needed numerous prompts to ambulate in hallway and basically insist that he get out of bed to walk. He walked as far as the community development technician desk before becoming fatigued. Stressed to him the importance of getting out of bed, sitting in his chair, walking and using IS. Educated him regarding how fast his strength fades laying in bed. Suggested he take a shower and sit in his chair for a couple of hours however currently sitting on the side of the bed.
[2020-06-07] MEDS: ENOXAPARIN 40 MG/0.4 ML (LOVENOX) SYR SQ SCH (18:01)
--- NOTE | 2020-06-07 18:12 | NUR ---
Continues to take in much nourishment. Had a few bites of jello but states it made him nauseous. I suggested he try the warm broth of tea as the past two days the jello hasn't set well with him.
[2020-06-07 23:48] VITALS: BP 148/89
--- NOTE | 2020-06-08 00:28 | NUR ---
Patient reported vomiting earlier in the shift, this nurse did not see emesis and requested that patient call staff if he vomits again so that staff can assess. Patient c/o abdominal pain, requests PRN Percocet. This nurse educated patient that CT shows a possible ileus and patient needs to ambulate in the halls and try to avoid narcotics. Patient states that he is walking back and forth to the window in his room. Each time this nurse has gone to patient room on rounds patient is in bed. Patient also encouraged to use incentive spirometer. This nurse spoke with patient this evening, had several concerns. stated that patient had told her he "just wants to go home" and wanted to know what criteria patient needs to meet for discharge. This nurse and patient discussed that patient needs to increase activity and use incentive spirometer as instructed. stated that patient reported to her that he had ambulated in hallways several times throughout the day. This nurse advised that report from day staff was that patient had ambulated a short distance once on previous shift.
[2020-06-08] MEDS: oxyCODONE/APAP 5/325MG (PERCOCET 5) TABLET PO PRN ×2 (00:40→22:24)
[2020-06-08 05:41] LABS: BASOPHILS # (AUTO) 0.1 10^3/uL (0.0-0.1); BASOPHILS % (AUTO) 0 % (0-10); EOSINOPHILS # (AUTO) 0.1 10^3/uL (0.0-0.3); EOSINOPHILS % (AUTO) 1 % (0-10); HEMATOCRIT 35 % (40-54); HEMOGLOBIN 11.8 g/dL (13.3-17.7); LYMPHOCYTES # (AUTO) 1.3 10^3/uL (1.0-4.0); LYMPHOCYTES % (AUTO) 9 % (12-44); MEAN CORPUSCULAR HEMOGLOBIN 30 pg (25-34); MEAN CORPUSCULAR HGB CONC 34 g/dL (32-36); MEAN CORPUSCULAR VOLUME 88 fL (80-99); MEAN PLATELET VOLUME 9.6 fL (9.0-12.2); MONOCYTES % (AUTO) 7 % (0-12); NEUTROPHILS # (AUTO) 11.6 10^3/uL (1.8-7.8); NEUTROPHILS % (AUTO) 81 % (42-75); PLATELET COUNT 352 10^3/uL (130-400); WHITE BLOOD COUNT 14.3 10^3/uL (4.3-11.0)
[2020-06-08 05:48] LABS: POTASSIUM 3.5 MMOL/L (3.6-5.0)
[2020-06-08] MEDS: predniSONE 20 MG TAB PO SCH (05:48)
[2020-06-08] MEDS: TETRACYCLINE 250 MG PO SCH ×4 (05:48→18:39)
[2020-06-08 05:49] LABS: CALCIUM 7.2 MG/DL (8.5-10.1)
[2020-06-08 05:54] LABS: CREATININE SERUM 1.93 MG/DL (0.60-1.30)
--- NOTE | 2020-06-08 06:57 | NUR ---
This nurse went to patient room to administer morning meds. Spoke with patient about eating something as patient stated last night that when he takes the tetracycline it makes him feel nauseated. Patient agreed to eat a popsicle. Patient first drank some water and Sprite and then vomited approximately 50cc yellow bile. This nurse talked to patient again about CT results showing an ileus and explained to patient what that was and the importance of ambulating and increasing activity. Patient acknowledged understanding and said that he wanted to try to eat the popsicle prior to taking meds. This nurse left patient room and he called about twenty minutes later and reported that he was able to eat most of the popsicle and was ready to take his meds. Patient took medications without difficulty. This nurse then asked patient if he wanted to go for a walk in the hallway and patient declined.
--- NOTE | 2020-06-08 07:03 | Progress Note - Surgery ---
Subjective Date Seen by a Provider: Jun 08, 2020 Time Seen by a Provider: 06:59 Subjective/Events-last exam Still feeling well. When taking medications he did have nausea and emesis. Has been taking clears okay otherwise. Patient states little to no pain. Loose stools and passing flatus, no blood. Denies fever sweats chills shortness of breath or chest pain. Objective Exam Vital Signs Date Time Temp Pulse Resp B/P (MAP) Pulse Ox O2 Delivery O2 Flow Rate FiO2 06/07/20 23:48 36.2 88 20 148/89 (108) 95 Room Air 06/07/20 20:00 Room Air 06/07/20 16:00 35.9 76 18 147/93 (111) 99 Room Air 06/07/20 08:00 97 Room Air 6.00 06/07/20 07:40 36.0 82 16 156/95 (115) 96 Room Air I & O 06/08/20 07:00 Intake Total 1520 ml Balance 1520 ml Capillary Refill : Less Than 3 SecondsLess Than 3 Seconds General Appearance: No Apparent Distress, Anxious, Obese HEENT: PERRL/EOMI, Normal ENT Inspection Neck: Normal Inspection, Non Tender Respiratory: Chest Non Tender, No Accessory Muscle Use, No Respiratory Distress Cardiovascular: Regular Rate, Rhythm, No Edema, No Murmur Peripheral Pulses: 2+ Radial Pulses (R), 2+ Radial Pulses (L) Gastrointestinal: non tender, soft; No tenderness Extremity: Normal Inspection, Non Tender, Pedal Edema Neurologic/Psychiatric: Alert, Oriented x3, No Motor/Sensory Deficits Skin: Normal Color, Warm/Dry Lymphatic: No Adenopathy Results Lab Laboratory Tests 06/08/20 05:30: White Blood Count 14.3H, Red Blood Count 3.96L, Hemoglobin 11.8L, Hematocrit 35L , Mean Corpuscular Volume 88, Mean Corpuscular Hemoglobin 30, Mean Corpuscular Hemoglobin Concent 34, Red Cell Distribution Width 14.2, Platelet Count 352, Mean Platelet Volume 9.6, Immature Granulocyte % (Auto) 2, Neutrophils (%) (Auto) 81H, Lymphocytes (%) (Auto) 9L, Monocytes (%) (Auto) 7, Eosinophils (%) (Auto) 1, Basophils (%) (Auto) 0, Neutrophils # (Auto) 11.6H, Lymphocytes # (Auto) 1.3, Monocytes # (Auto) 1.0, Eosinophils # (Auto) 0.1, Basophils # (Auto) 0.1, Immature Granulocyte # (Auto) 0.3H, Sodium Level 135, Potassium Level 3.5L, Chloride Level 101, Carbon Dioxide Level 23, Anion Gap 11, Blood Urea Nitrogen 19H, Creatinine 1.93H, Estimat Glomerular Filtration Rate 38, BUN/Creatinine Ratio 10, Glucose Level 110H, Calcium Level 7.2L Microbiology 05/30/20 Blood Culture - Final, Complete No growth 05/29/20 Cryptosporidium/Giardia - Final, Complete Assessment/Plan Assessment/Plan Assessment/Plan Colitis, infectious vs inflammatory, possibly ulcerative colitis - improvement seen since decompressive colonoscopy and on steroids Leukocytosis Staph epidermidis bacteremia - on antibiotics SOBIA Status post decompressive colonoscopy with cold biopsies GERD H pylori Continue Abx Pain management and encourage IS and Discussed needs to increase ambulation Advance diet as able to tolerate Path showing inflammatory bowel disease- will need follow up with GI No surgical intervention, any worsening be seen at that time. Clinical Quality Measures DVT/VTE Risk/Contraindication: Risk Factor Score Per Nursin RFS Level Per Nursing on Admit: 4+=Very High NELIA PADILLA DO Jun 08, 2020 07:03
[2020-06-08 08:00] VITALS: BP 132/86
[2020-06-08] MEDS: PANTOPRAZOLE 40 MG (PROTONIX) TAB PO SCH ×2 (09:24→22:25)
[2020-06-08] MEDS: metroNIDAZOLE 250 MG (FLAGYL) TAB PO SCH ×4 (09:24→22:25)
[2020-06-08] MEDS: BISMUTH SUBSALICYLATE 240 ML (PEPTO BISMOL) PO SCH ×4 (09:25→22:26)
--- NOTE | 2020-06-08 13:49 | Progress Note - Hospitalist ---
Subjective HPI/CC On Admission Date Seen by Provider: Jun 08, 2020 Time Seen by Provider: 09:10 Pt is a 45yoCM who presented to the ER due to abdominal pain. He has been seen in the ER on 05/20, 05/23, and 05/25 for similar symptoms and was treated with antibiotics for colitis per his CT findings. He was referred to Dr Reyes and s elizabeth tucker on 05/26 and his antibiotics were changed to oral Levaquin and Flagyl. He returned to the ER 05/29 due to worsening abdominal pain and difficulty keeping any oral intake down. He states his pain is persistent still but responds to morphine. Subjective/Events-last exam He reports that he ate his oatmeal this morning and has been able to hold it down. He denies pain. He is going to try more small meals today. Objective Exam Vital Signs Vital Signs Date Time Temp Pulse Resp B/P (MAP) Pulse Ox O2 Delivery O2 Flow Rate FiO2 06/08/20 08:30 Room Air 06/08/20 08:00 36.0 97 20 132/86 (101) 98 06/07/20 08:00 6.00 Capillary Refill : Less Than 3 SecondsLess Than 3 Seconds General Appearance: No Apparent Distress, Obese Respiratory: Lungs Clear, Normal Breath Sounds, No Respiratory Distress Cardiovascular: Regular Rate, Rhythm, No Edema, No Murmur Gastrointestinal: Normal Bowel Sounds, Non Tender, Soft Extremity: Normal Inspection, Non Tender, No Pedal Edema Neurologic/Psychiatric: Alert, Oriented x3, No Motor/Sensory Deficits, Normal Mood/Affect Skin: Normal Color, Warm/Dry Results/Procedures Lab Laboratory Tests 06/08/20 05:30 Patient resulted labs reviewed. Imaging: Reviewed Imaging Report Assessment/Plan Assessment and Plan Assess & Plan/Chief Complaint Inflammatory bowel disease Colitis Surgery consulted, appreciate recs CT Abdomen showed severely dilated colon Colonoscopy performed for decompression revealed severe colitis, concerning for ulcerative colitis Pathology consistent with chronic idiopathic inflammatory bowel disease Continue Prednisone Advance diet as tolerated Will need outpatient GI follow up, would like to go to [facility] H pylori infection Continue quad therapy: Protonix, Bismuth, Tetracycline, Flagyl Possible MRSE bacteremia Vancomycin adverse reaction Acute tubular necrosis Acute kidney injury s/p course of Vancomycin, now stopped Renal function improving IV fluids GERD Protonix DVT ppx: Lovenox Diagnosis/Problems Diagnosis/Problems (1) Inflammatory bowel disease Status: Acute (2) Colitis Status: Acute (3) Vancomycin adverse reaction Status: Acute Qualifiers: Encounter type: initial encounter Qualified Codes: T36.8X5A - Adverse effect of other systemic antibiotics, initial encounter (4) Acute tubular necrosis Status: Acute (5) SOBIA (acute kidney injury) Status: Acute (6) H. pylori infection Status: Acute (7) Methicillin resistant Staphylococcus epidermidis infection Status: Resolved Resolution Date/Time: 06/07/20 @ 11:44 Clinical Quality Measures DVT/VTE Risk/Contraindication: Risk Factor Score Per Nursin RFS Level Per Nursing on Admit: 4+=Very High YOLIE CARRENO MD Jun 08, 2020 13:49
[2020-06-08 16:00] VITALS: BP 143/93
[2020-06-08] MEDS: ENOXAPARIN 40 MG/0.4 ML (LOVENOX) SYR SQ SCH (18:39)
[2020-06-08] MEDS: ONDANSETRON 4 MG/2 ML (SDV) Z0FRAN IV PRN (21:18)
[2020-06-09] VITALS: BP 135/83
[2020-06-09] MEDS: TETRACYCLINE 250 MG PO SCH ×4 (00:59→17:58)
--- NOTE | 2020-06-09 01:00 | NUR ---
At 2109 patient vomited approx 75 ml yellow bile witnessed by this RN, PRN Zofran administered at 2117. At 2223 patient stated nausea had resolved but requested a Percocet for 7/10 abdominal pain. Patient took PRN PO Percocet and 2100 dose of Protonix but refused Flagyl and Pepto Bismol because they make him "sick to his stomach." At 54 patient refused Tetracycline, told this RN that he is sure the Flagyl or Tetracycline are making him vomit. This RN educated patient on importance of taking prescribed antibiotics to improve current condition. Patient stated he would like to talk to his doctor in AM regarding medications.
[2020-06-09 05:40] LABS: BASOPHILS # (AUTO) 0.1 10^3/uL (0.0-0.1); BASOPHILS % (AUTO) 0 % (0-10); EOSINOPHILS # (AUTO) 0.1 10^3/uL (0.0-0.3); EOSINOPHILS % (AUTO) 1 % (0-10); HEMATOCRIT 34 % (40-54); HEMOGLOBIN 11.5 g/dL (13.3-17.7); LYMPHOCYTES # (AUTO) 1.2 10^3/uL (1.0-4.0); LYMPHOCYTES % (AUTO) 7 % (12-44); MEAN CORPUSCULAR HEMOGLOBIN 30 pg (25-34); MEAN CORPUSCULAR HGB CONC 34 g/dL (32-36); MEAN CORPUSCULAR VOLUME 89 fL (80-99); MEAN PLATELET VOLUME 9.9 fL (9.0-12.2); MONOCYTES % (AUTO) 5 % (0-12); NEUTROPHILS # (AUTO) 15.1 10^3/uL (1.8-7.8); NEUTROPHILS % (AUTO) 86 % (42-75); PLATELET COUNT 299 10^3/uL (130-400); WHITE BLOOD COUNT 17.7 10^3/uL (4.3-11.0)
[2020-06-09 05:49] LABS: POTASSIUM 3.2 MMOL/L (3.6-5.0)
[2020-06-09 05:55] LABS: CREATININE SERUM 1.99 MG/DL (0.60-1.30)
[2020-06-09 06:00] LABS: BAND NEUTROPHILS 11 %; EOSINOPHILS % (MANUAL) 1 %; LYMPHOCYTES % (MANUAL) 12 %; MONOCYTES % (MANUAL) 8 %; NEUTROPHILS % (MANUAL) 68 %; RBC MORPH NORMAL
--- NOTE | 2020-06-09 06:45 | Progress Note - Surgery ---
ASHLEY WATSON MED STUDENT 06/09/20 0645: Subjective Date Seen by a Provider: Jun 09, 2020 Time Seen by a Provider: 06:41 Subjective/Events-last exam Pt awake upon entering room. Pt c/o of emesis (yellow bile) TNC and liquid stools TNC. Pt has been able to keep some solid foods down without emesis. Pt notes accepting pain medication due to 8-9/10 abdominal pain over night. Pt doesnt note any cause of abdominal pain. Pt explains that hes been walking x6. Review of Systems General: No Chills; Fatigue Pulmonary: No Dyspnea; Cough Cardiovascular: No: Chest Pain Gastrointestinal: Nausea, Vomiting, Abdominal Pain, Diarrhea Musculoskeletal: leg pain (Left numbness) Neurological: Weakness (Decreased from previous days) Objective Exam Vital Signs Date Time Temp Pulse Resp B/P (MAP) Pulse Ox O2 Delivery O2 Flow Rate FiO2 06/09/20 00:00 36.4 106 18 135/83 (100) 95 Room Air 06/08/20 19:40 Room Air 06/08/20 16:00 36.6 100 16 143/93 (110) 96 Room Air 06/08/20 08:30 Room Air 06/08/20 08:00 36.0 97 20 132/86 (101) 98 Room Air I & O 06/09/20 07:00 Intake Total 2295 ml Balance 2295 ml Capillary Refill : Less Than 3 SecondsLess Than 3 Seconds General Appearance: No Apparent Distress, Obese HEENT: PERRL/EOMI, Normal ENT Inspection Neck: Normal Inspection, Non Tender Respiratory: Lungs Clear, Normal Breath Sounds, No Accessory Muscle Use, No Respiratory Distress Cardiovascular: Regular Rate, Rhythm, No Edema, No Gallop, No Murmur Peripheral Pulses: 2+ Radial Pulses (R), 2+ Radial Pulses (L) Gastrointestinal: non tender, soft, tenderness (LLQ) Extremity: Normal Inspection, Non Tender, No Pedal Edema Neurologic/Psychiatric: Alert, Oriented x3, No Motor/Sensory Deficits, Normal Mood/Affect Skin: Normal Color, Warm/Dry Lymphatic: No Adenopathy Results Lab Laboratory Tests 06/09/20 04:57: Sodium Level 133L, Potassium Level 3.2L, Chloride Level 100, Carbon Dioxide Level 23, Anion Gap 10, Blood Urea Nitrogen 18, Creatinine 1.99H, Estimat Glomerular Filtration Rate 37, BUN/Creatinine Ratio 9, Glucose Level 140H, Calcium Level 7.0L 06/09/20 05:01: White Blood Count 17.7H, Red Blood Count 3.82L, Hemoglobin 11.5L, Hematocrit 34L , Mean Corpuscular Volume 89, Mean Corpuscular Hemoglobin 30, Mean Corpuscular Hemoglobin Concent 34, Red Cell Distribution Width 14.1, Platelet Count 299, Mean Platelet Volume 9.9, Immature Granulocyte % (Auto) 2, Neutrophils (%) (Auto) 86H, Lymphocytes (%) (Auto) 7L, Monocytes (%) (Auto) 5, Eosinophils (%) (Auto) 1, Basophils (%) (Auto) 0, Neutrophils # (Auto) 15.1H, Lymphocytes # (Auto) 1.2, Monocytes # (Auto) 1.0, Eosinophils # (Auto) 0.1, Basophils # (Auto) 0.1, Immature Granulocyte # (Auto) 0.3H, Neutrophils % (Manual) 68, Lymphocytes % (Manual) 12, Monocytes % (Manual) 8, Eosinophils % (Manual) 1, Band Neutrophils 11, Blood Morphology Comment NORMAL Microbiology 05/30/20 Blood Culture - Final, Complete No growth 05/29/20 Cryptosporidium/Giardia - Final, Complete Assessment/Plan Assessment/Plan Assessment/Plan Colitis, infectious vs inflammatory, possibly ulcerative colitis - improvement seen since decompressive colonoscopy and on steroids Leukocytosis Staph epidermidis bacteremia - on antibiotics SOBIA Status post decompressive colonoscopy with cold biopsies GERD H pylori Continue Abx Pain management and encourage IS Discussed needs to increase ambulation Advance diet as able to tolerate Path showing inflammatory bowel disease- will need follow up with GI No surgical intervention, any worsening be seen at that time. Clinical Quality Measures DVT/VTE Risk/Contraindication: Risk Factor Score Per Nursin RFS Level Per Nursing on Admit: 4+=Very High NELIA REYES DO 06/09/20 1352: Subjective Subjective/Events-last exam Having some emesis feels from having pulled pork. Has kept other food down. Refused antibiotics. Was having pain during this, but now resolved. No pain. Feeling better. Ambulating mulitple times. Passing flatus and bm. Deneis n/v fever sweats chills shortness of breath or chest pain at this time. Not wanting surgery. Objective Exam General Appearance: No Apparent Distress, Obese HEENT: PERRL/EOMI, Normal ENT Inspection Neck: Normal Inspection, Non Tender Respiratory: Chest Non Tender, No Accessory Muscle Use, No Respiratory Distress Cardiovascular: Regular Rate, Rhythm, No JVD; No Tachycardia Gastrointestinal: non tender, soft, no organomegaly Extremity: Normal Inspection, Non Tender, Swelling (minimal lower ext swelling) Neurologic/Psychiatric: Alert, Oriented x3 Skin: Normal Color, Warm/Dry Lymphatic: No Adenopathy Assessment/Plan Assessment/Plan Assessment/Plan Colitis, infectious vs inflammatory, possibly ulcerative colitis - improvement seen since decompressive colonoscopy and on steroids Leukocytosis Staph epidermidis bacteremia SOBIA Status post decompressive colonoscopy with cold biopsies GERD H pylori Continue Abx- patient refusing Pain management and encourage IS Discussed needs to increase ambulation Advance diet as able to tolerate Path showing inflammatory bowel disease- will need follow up with GI No surgical intervention, any worsening be seen at that time. Supervisory-Addendum Brief Verification & Attestation Participated in pt care: history, MDM, physical Personally performed: exam, history, MDM, supervision of care Care discussed with: Medical Student Procedures: n/a Results interpretation: Verified all documentation Verification and Attestation of Medical Student E/M Service A medical student performed and documented this service in my presence. I revi ewed and verified all information documented by the medical student and made modifications to such information, when appropriate. I personally performed the physical exam and medical decision making. Nelia Reyes, Jun 09, 2020,13:51 ASHLEY WATSON MED STUDENT Jun 09, 2020 06:45 NELIA REYES DO Jun 09, 2020 13:52
[2020-06-09] MEDS: predniSONE 20 MG TAB PO SCH (06:58)
[2020-06-09 07:47] VITALS: BP 134/82
[2020-06-09] MEDS: metroNIDAZOLE 250 MG (FLAGYL) TAB PO SCH ×4 (08:58→19:43)
[2020-06-09] MEDS: PANTOPRAZOLE 40 MG (PROTONIX) TAB PO SCH ×2 (08:58→19:43)
[2020-06-09] MEDS: BISMUTH SUBSALICYLATE 240 ML (PEPTO BISMOL) PO SCH ×4 (08:58→19:44)
--- NOTE | 2020-06-09 09:41 | Progress Note - Hospitalist ---
Subjective HPI/CC On Admission Date Seen by Provider: Jun 09, 2020 Time Seen by Provider: 09:35 Pt is a 45yoCM who presented to the ER due to abdominal pain. He has been seen in the ER on 05/20, 05/23, and 05/25 for similar symptoms and was treated with antibiotics for colitis per his CT findings. He was referred to Dr Reyes and s elizabeth tucker on 05/26 and his antibiotics were changed to oral Levaquin and Flagyl. He returned to the ER 05/29 due to worsening abdominal pain and difficulty keeping any oral intake down. He states his pain is persistent still but responds to morphine. Subjective/Events-last exam Pt reports feeling better. States he did well yesterday until he ate pulled pork and then got sick from that. Objective Exam Vital Signs Vital Signs Date Time Temp Pulse Resp B/P (MAP) Pulse Ox O2 Delivery O2 Flow Rate FiO2 06/09/20 07:47 36.6 97 16 134/82 (99) 94 Room Air 06/07/20 08:00 6.00 Capillary Refill : Less Than 3 SecondsLess Than 3 Seconds General Appearance: No Apparent Distress, Obese Respiratory: Lungs Clear, No Respiratory Distress Cardiovascular: Regular Rate, Rhythm, No Murmur Gastrointestinal: Normal Bowel Sounds, Soft, Distended (improved from my last visit) Neurologic/Psychiatric: Alert, Oriented x3 Results/Procedures Lab Laboratory Tests 06/09/20 04:57 06/09/20 05:01 Patient resulted labs reviewed. Imaging: Reviewed Imaging Report Assessment/Plan Assessment and Plan Assess & Plan/Chief Complaint Inflammatory bowel disease Colitis Surgery consulted, appreciate recs CT Abdomen showed severely dilated colon Colonoscopy performed for decompression revealed severe colitis, concerning for ulcerative colitis Pathology consistent with chronic idiopathic inflammatory bowel disease Continue Prednisone Advance diet as tolerated Will need outpatient GI follow up, would like to go to [facility] Requests follow up with Dr Mcgrath- will place referral H pylori infection Continue quad therapy: Protonix, Bismuth, Tetracycline, Flagyl Has some difficulty tolerating tetracycline, advised to take with some food Possible MRSE bacteremia Vancomycin adverse reaction Acute tubular necrosis Acute kidney injury s/p course of Vancomycin, now stopped Renal function improving IV fluids GERD Protonix DVT ppx: Lovenox Diagnosis/Problems Diagnosis/Problems (1) Colitis Status: Acute (2) Dehydration Status: Acute Clinical Quality Measures DVT/VTE Risk/Contraindication: Risk Factor Score Per Nursin RFS Level Per Nursing on Admit: 4+=Very High ANSHUL NIETO MD Jun 09, 2020 09:41
--- NOTE | 2020-06-09 14:43 | NUR ---
Pastoral care visit.
--- NOTE | 2020-06-09 14:55 | NUR ---
"RD ASSESSMENT PMHx: GERD; PT INTERACTION: Pt was awake and pleasant during nutrition follow-up. Pt states he has been eating okay since last assessment. Note avg PO intake <25% x3d, per chart review. Pt states some issues with nausea, vomiting, and diarrhea since last assessment. Note episode of emesis on 06/09, per chart review. Note last BM was 06/09, and pt currently on anti-diarrheal Pepto Bismol QID, per chart review. Est. kcal needs: 8661-4228 kcal | 15-18 kcal/kg Est. Pro needs: 98-123 g Pro | 0.8-1.0 g Pro/kg PES STATEMENT: Inadequate oral intake (NI-2.1) related to loss of appetite, nausea, vomiting, and diarrhea, as evidenced by pt interview, and avg PO intake <25% x3d. INTERVENTION: Continue with current diet order of [place] Diet. Add Ensure Enlive (vary) to meals TID, for increased kcal intake. Provides 350 kcal and 20 g Pro per serving. Encouraged pt to eat when able. Will continue to follow and reassess as pt needs, intake, and status change. Pete MAYNARD, RD LD [phone] cell"
[2020-06-09 16:37] VITALS: BP 135/86
[2020-06-09] MEDS: ENOXAPARIN 40 MG/0.4 ML (LOVENOX) SYR SQ SCH (18:01)
[2020-06-10 00:23] VITALS: BP 133/89
[2020-06-10] MEDS: TETRACYCLINE 250 MG PO SCH ×4 (01:02→17:47)
[2020-06-10] MEDS: predniSONE 20 MG TAB PO SCH (05:42)
[2020-06-10 05:53] LABS: BASOPHILS % (AUTO) 0 % (0-10); EOSINOPHILS # (AUTO) 0.1 10^3/uL (0.0-0.3); EOSINOPHILS % (AUTO) 1 % (0-10); HEMATOCRIT 31 % (40-54); HEMOGLOBIN 10.7 g/dL (13.3-17.7); LYMPHOCYTES # (AUTO) 1.3 10^3/uL (1.0-4.0); LYMPHOCYTES % (AUTO) 11 % (12-44); MEAN CORPUSCULAR HEMOGLOBIN 30 pg (25-34); MEAN CORPUSCULAR HGB CONC 34 g/dL (32-36); MEAN CORPUSCULAR VOLUME 88 fL (80-99); MEAN PLATELET VOLUME 9.7 fL (9.0-12.2); MONOCYTES # (AUTO) 0.8 10^3/uL (0.0-1.0); MONOCYTES % (AUTO) 6 % (0-12); NEUTROPHILS # (AUTO) 9.6 10^3/uL (1.8-7.8); NEUTROPHILS % (AUTO) 80 % (42-75); PLATELET COUNT 229 10^3/uL (130-400); WHITE BLOOD COUNT 11.9 10^3/uL (4.3-11.0)
--- NOTE | 2020-06-10 06:58 | Progress Note - Surgery ---
ASHLEY WATSON MED STUDENT 06/10/20 0658: Subjective Date Seen by a Provider: Jun 10, 2020 Time Seen by a Provider: 06:54 Subjective/Events-last exam Pt asleep upon entering the room. Pt c/o tiredness due to lack of sleep, nausea, and minimal emesis. Pt notes no pain, able to keep down soft foods, and walk. Pt notes loose stools and flatulence. Review of Systems General: No Chills; Fatigue HEENT: No Head Aches Pulmonary: Cough Cardiovascular: No: Chest Pain Gastrointestinal: Nausea, Vomiting, Abdominal Pain (LLQ) Musculoskeletal: back pain Objective Exam Vital Signs Date Time Temp Pulse Resp B/P (MAP) Pulse Ox O2 Delivery O2 Flow Rate FiO2 06/10/20 00:23 36.2 107 19 133/89 (104) 94 Room Air 06/09/20 19:30 Room Air 06/09/20 16:37 36.3 98 18 135/86 (102) 97 Room Air 06/09/20 08:00 Room Air 06/09/20 07:47 36.6 97 16 134/82 (99) 94 Room Air I & O 06/10/20 07:00 Intake Total 1520 ml Balance 1520 ml Capillary Refill : Less Than 3 SecondsLess Than 3 Seconds General Appearance: No Apparent Distress, Obese HEENT: PERRL/EOMI, Normal ENT Inspection Neck: Normal Inspection, Non Tender Respiratory: Chest Non Tender, Lungs Clear, Normal Breath Sounds, No Accessory Muscle Use, No Respiratory Distress Cardiovascular: Regular Rate, Rhythm, No JVD, No Murmur; No Tachycardia Peripheral Pulses: 2+ Radial Pulses (R), 2+ Radial Pulses (L) Gastrointestinal: non tender, soft, no organomegaly Extremity: Normal Inspection, Non Tender, Swelling (minimal lower ext swelling) Neurologic/Psychiatric: Alert, Oriented x3 Skin: Normal Color, Warm/Dry Lymphatic: No Adenopathy Results Lab Laboratory Tests 06/10/20 05:28: White Blood Count 11.9H, Red Blood Count 3.56L, Hemoglobin 10.7L, Hematocrit 31L , Mean Corpuscular Volume 88, Mean Corpuscular Hemoglobin 30, Mean Corpuscular Hemoglobin Concent 34, Red Cell Distribution Width 14.2, Platelet Count 229, Mean Platelet Volume 9.7, Immature Granulocyte % (Auto) 1, Neutrophils (%) (Auto) 80H, Lymphocytes (%) (Auto) 11L, Monocytes (%) (Auto) 6, Eosinophils (%) (Auto) 1, Basophils (%) (Auto) 0, Neutrophils # (Auto) 9.6H, Lymphocytes # (Auto) 1.3, Monocytes # (Auto) 0.8, Eosinophils # (Auto) 0.1, Basophils # (Auto) 0.0, Immature Granulocyte # (Auto) 0.1 Microbiology 05/30/20 Blood Culture - Final, Complete No growth 05/29/20 Cryptosporidium/Giardia - Final, Complete Assessment/Plan Assessment/Plan Assessment/Plan Colitis, infectious vs inflammatory, possibly ulcerative colitis - improvement seen since decompressive colonoscopy and on steroids Leukocytosis Staph epidermidis bacteremia SOBIA Status post decompressive colonoscopy with cold biopsies GERD H pylori Continue Abx- patient refusing Pain management and encourage IS Discussed needs to increase ambulation Advance diet as able to tolerate Path showing inflammatory bowel disease- will need follow up with GI No surgical intervention, any worsening be seen at that time. Clinical Quality Measures DVT/VTE Risk/Contraindication: Risk Factor Score Per Nursin RFS Level Per Nursing on Admit: 4+=Very High NELIA REYES DO 06/10/20 1823: Subjective Subjective/Events-last exam Yesterday was some minimal emesis. Patient tolerating foods now. No abdominal pain. Feeling a little bit stronger. He is ambulating. Having bowel function. Denies any new complaints. Objective Exam General Appearance: No Apparent Distress, Obese HEENT: PERRL/EOMI, Normal ENT Inspection Neck: Full Range of Motion, Normal Inspection, Non Tender Respiratory: Chest Non Tender, No Accessory Muscle Use, No Respiratory Distress Cardiovascular: Regular Rate, Rhythm, No JVD Gastrointestinal: non tender, soft, no organomegaly Extremity: Normal Inspection, Non Tender Neurologic/Psychiatric: Alert, Oriented x3 Skin: Normal Color, Warm/Dry Lymphatic: No Adenopathy Assessment/Plan Assessment/Plan Assessment/Plan Colitis, infectious vs inflammatory, possibly ulcerative colitis - improvement seen since decompressive colonoscopy and on steroids Leukocytosis Staph epidermidis bacteremia SOBIA Status post decompressive colonoscopy with cold biopsies GERD H pylori Continue Abx- patient refusing Pain management and encourage IS Discussed needs to increase ambulation diet as able to tolerate Path showing inflammatory bowel disease- will need follow up with GI No surgical intervention, any worsening be seen at that time. Steroid taper Supervisory-Addendum Brief Verification & Attestation Participated in pt care: history, MDM, physical Personally performed: exam, history, MDM, supervision of care Care discussed with: Medical Student Procedures: n/a Results interpretation: Verified all documentation Verification and Attestation of Medical Student E/M Service A medical student performed and documented this service in my presence. I reviewed and verified all information documented by the medical student and made modifications to such information, when appropriate. I personally performed the physical exam and medical decision making. Nelia Reyes, Jun 10, 2020,18:23 ASHLEY WATSON MED STUDENT Jun 10, 2020 06:58 NELIA REYES DO Jun 10, 2020 18:23
[2020-06-10] MEDS: metroNIDAZOLE 250 MG (FLAGYL) TAB PO SCH ×3 (08:35→17:47)
[2020-06-10] MEDS: BISMUTH SUBSALICYLATE 240 ML (PEPTO BISMOL) PO SCH ×3 (08:35→17:48)
[2020-06-10] MEDS: PANTOPRAZOLE 40 MG (PROTONIX) TAB PO SCH (08:35)
[2020-06-10 08:51] VITALS: BP 138/82
--- NOTE | 2020-06-10 09:45 | Discharge Summary ---
Diagnosis/Chief Complaint Date of Admission May 27, 2020 at 22:00 Date of Discharge Admission Diagnosis Colitis Primary Care Estefanía Avelar [facility] Discharge Diagnosis (1) Inflammatory bowel disease Status: Acute (2) Colitis Status: Acute (3) Vancomycin adverse reaction Status: Acute (4) Acute tubular necrosis Status: Acute (5) SOBIA (acute kidney injury) Status: Acute (6) H. pylori infection Status: Acute (7) Methicillin resistant Staphylococcus epidermidis infection Status: Resolved Discharge Summary Discharge Physical Exam Allergies: Coded Allergies: Penicillins (Verified Allergy, Unknown, 11/16/18) Vitals & I&Os Vital Signs Date Time Temp Pulse Resp B/P (MAP) Pulse Ox O2 Delivery O2 Flow Rate FiO2 06/10/20 18:08 06/10/20 15:40 36.2 96 18 97 Room Air 06/07/20 08:00 6.00 General Appearance: No Apparent Distress, WD/WN Cardiovascular: Regular Rate, Rhythm, No Murmur Gastrointestinal: Normal Bowel Sounds, Non Tender, Soft Neurologic/Psychiatric: Alert Hospital Course Labs (last 24 hrs) Microbiology 05/30/20 Blood Culture - Final, Complete No growth 05/29/20 Cryptosporidium/Giardia - Final, Complete Patient resulted labs reviewed. Pending Labs Imaging: Reviewed Imaging Report Discharge Home Medications: Active Scripts Active Prednisone 20 Mg Tab 40 Mg PO DAILY@0700 Take 40mg daily for 1 week, then 30mg daily for 1 week, 20mg for 1 week until seen by your doctor for further tapering Pantoprazole Sodium 40 Mg Tablet.dr 40 Mg PO BID Bismatrol (Bismuth Subsalicylate) 262 Mg/15 Ml Oral.susp 30 Ml PO QID Tetracycline HCl 250 Mg Capsule 500 Mg PO Q6HR Metronidazole 250 Mg Tablet 250 Mg PO QID Reported Ibuprofen 200 Mg Capsule 400 Mg PO Q6H PRN Imodium A-D (Loperamide HCl) 2 Mg Capsule 2 Mg PO TID PRN Diclofenac Sodium 100 Gm Gel..gram. 1 Applic TOP Q4H PRN APPLY TO FEET Hydrocodone-Acetamin 5-325 mg (Hydrocodone/Acetaminophen) 1 Each Tablet 1 Each PO Q6H PRN Ondansetron Odt (Ondansetron) 8 Mg Tab.rapdis 8 Mg PO Q6H Instructions to patient/family Please see electronic discharge instructions given to patient. Clinical Quality Measures DVT/VTE Risk/Contraindication: Risk Factor Score Per Nursin RFS Level Per Nursing on Admit: 4+=Very High Problem Qualifiers (1) Vancomycin adverse reaction: Encounter type: initial encounter Qualified Codes: T36.8X5A - Adverse effect of other systemic antibiotics, initial encounter ANSHUL NIETO MD Jun 10, 2020 09:45
--- NOTE | 2020-06-10 12:53 | Discharge Inst-Simple/Standard ---
Discharge Inst-Standard Discharge Medications New, Converted or Re-Newed RX: Transmitted to Pharmacy Patient Instructions/Follow Up Plan of Care/Instructions/FU: Please continue to take your medications as written. Please continue with a bland diet and go easy. Please follow up with your primary care doctor to follow up this hospital stay. Please keep your appointment with [facility] Gastro[facility]ology. Activity as Tolerated: Yes Discharge Diet: Soft Diet Return to The Hospital For: Chest pain, shortness of breath, abdominal pain, worsening nausea or vomiting, fever, abdominal swelling, if you feel you are getting worse. ANSHUL NIETO MD Jun 10, 2020 12:53
[2020-06-10] MEDS ORDERED: METR-143 PO (13:08)
[2020-06-10] MEDS ORDERED: [UNRECOGNIZED DRUG - CODE] PO (13:08)
[2020-06-10] MEDS ORDERED: PRD20T PO (13:08)
[2020-06-10] MEDS ORDERED: BISM262O24 PO (13:08)
[2020-06-10] MEDS ORDERED: PANT40TA52 PO (13:08)
--- NOTE | 2020-06-10 13:20 | Discharge Summary ---
Diagnosis/Chief Complaint Date of Admission May 27, 2020 at 22:00 Date of Discharge Discharge Date: Jun 10, 2020 Admission Diagnosis Colitis Primary Care Estefanía Avelar [facility] Discharge Diagnosis (1) Inflammatory bowel disease Status: Acute (2) Colitis Status: Acute (3) Vancomycin adverse reaction Status: Acute (4) Acute tubular necrosis Status: Acute (5) SOBIA (acute kidney injury) Status: Acute (6) H. pylori infection Status: Acute (7) Methicillin resistant Staphylococcus epidermidis infection Status: Resolved Discharge Summary Discharge Physical Exam Allergies: Coded Allergies: Penicillins (Verified Allergy, Unknown, 11/16/18) Vitals & I&Os Vital Signs Date Time Temp Pulse Resp B/P (MAP) Pulse Ox O2 Delivery O2 Flow Rate FiO2 06/10/20 18:08 06/10/20 15:40 36.2 96 18 97 Room Air 06/07/20 08:00 6.00 General Appearance: No Apparent Distress, WD/WN, Obese Respiratory: Lungs Clear, No Respiratory Distress Cardiovascular: Regular Rate, Rhythm, No Murmur Gastrointestinal: Normal Bowel Sounds, Soft Neurologic/Psychiatric: Alert, Oriented x3 Hospital Course Pt was admitted due to dehydration and abdominal pain from colitis. He was treated conservatively with bowel rest, IV antibiotics per his request and under went decompressive colonoscopy. Biopsies were taken and revealed inflammatory bowel disease. He as started on daily steroids with improvement in symptoms. He was also found to have h pyroli and was started on quadruple therapy for this. He slowly improved and was able to maintain a soft bland diet without IV pain medication or antiemetics. He was able to discharge home in stable condition and improved condition to follow up with GI at [facility] at his request and with his primary care doctor in the next week. I called and spoke with Dr Avelar regarding this hospital stay and medication adjustments that resulted. Labs (last 24 hrs) Microbiology 05/30/20 Blood Culture - Final, Complete No growth 05/29/20 Cryptosporidium/Giardia - Final, Complete Patient resulted labs reviewed. Pending Labs Imaging: Reviewed Imaging Report Discussion & Recommendations Discharge Planning: >30 minutes discharge planning Discharge Home Medications: Active Scripts Active Prednisone 20 Mg Tab 40 Mg PO DAILY@0700 Take 40mg daily for 1 week, then 30mg daily for 1 week, 20mg for 1 week until seen by your doctor for further tapering Pantoprazole Sodium 40 Mg Tablet.dr 40 Mg PO BID Bismatrol (Bismuth Subsalicylate) 262 Mg/15 Ml Oral.susp 30 Ml PO QID Tetracycline HCl 250 Mg Capsule 500 Mg PO Q6HR Metronidazole 250 Mg Tablet 250 Mg PO QID Reported Ibuprofen 200 Mg Capsule 400 Mg PO Q6H PRN Imodium A-D (Loperamide HCl) 2 Mg Capsule 2 Mg PO TID PRN Diclofenac Sodium 100 Gm Gel..gram. 1 Applic TOP Q4H PRN APPLY TO FEET Hydrocodone-Acetamin 5-325 mg (Hydrocodone/Acetaminophen) 1 Each Tablet 1 Each PO Q6H PRN Ondansetron Odt (Ondansetron) 8 Mg Tab.rapdis 8 Mg PO Q6H Instructions to patient/family Please see electronic discharge instructions given to patient. Clinical Quality Measures DVT/VTE Risk/Contraindication: Risk Factor Score Per Nursin RFS Level Per Nursing on Admit: 4+=Very High Copy Copies To 1: DANA AVELAR DO Problem Qualifiers (1) Vancomycin adverse reaction: Encounter type: initial encounter Qualified Codes: T36.8X5A - Adverse effect of other systemic antibiotics, initial encounter ANSHUL NIETO MD Jun 10, 2020 13:20
[2020-06-10 15:40] VITALS: BP 126/83
[2020-06-10] MEDS: ENOXAPARIN 40 MG/0.4 ML (LOVENOX) SYR SQ SCH (17:48)
== END 2020-06-10 19:03 | disposition home or self-care (01) | DRG 344 ==
LOC: EDUNIT# 21:18 → ER FS 21:19 → 4TH 22:00
PROVIDERS: ADMIT Internal Medicine; ATTEND Internal Medicine
PROC: 0DBE8ZX Excision of Large Intestine, Via Natural or Artificial Opening Endoscopic, Diagnostic (ICD-10-PCS; 2020-06-03)
PROC: 0D9G8ZZ Drainage of Left Large Intestine, Via Natural or Artificial Opening Endoscopic (ICD-10-PCS; principal; 2020-06-03 17:00)
DX: A04.8 Other specified bacterial intestinal infections (principal); N17.0 Acute kidney failure with tubular necrosis; R78.81 Bacteremia; Z16.11 Resistance to penicillins; B96.81 Helicobacter pylori [H. pylori] as the cause of diseases classified elsewhere; E86.0 Dehydration; T36.8X5A Adverse effect of other systemic antibiotics, initial encounter; B95.7 Other staphylococcus as the cause of diseases classified elsewhere; K21.9 Gastro-esophageal reflux disease without esophagitis; F41.9 Anxiety disorder, unspecified; Z87.891 Personal history of nicotine dependence; Z88.0 Allergy status to penicillin; Z79.891 Long term (current) use of opiate analgesic; Z79.52 Long term (current) use of systemic steroids
CPT/HCPCS: 36415; 74022; 74176; 76937; 80048; 80053; 80202; 83605; 83690; 83735; 85007; 85025; 85027; 86141; 87015; 87040; 87045; 87046; 87077; 87186; 87324; 87328; 87329; 87338; 87449; 87635; 87899; 88305; 94664; 96361; 96365

== ENCOUNTER → 2020-07-10 | Outpatient (CLI) | payer BC ==
[~2020-07-10] VITALS: Ht 182.9 cm; Wt 89.0 kg
[~2020-07-10] MED LIST changes: +BISM262O24 PO; +DICL100G31 TOP; +HYOS-20 PO; +IBUP-2185 PO; +LEVO500T80 PO; +LOPE-175 PO; +METR-143 PO; +METR-145 PO; +PANT40TA52 PO; +[UNRECOGNIZED DRUG - CODE] PO; +diphenhydrAMINE 50 MG/ML INJ (BENADRYL) IV SCH; +diphenhydrAMINE 50 MG/ML INJ (BENADRYL) ONE; +inFLIXimab 500 MG/NS 250 ML (EXCEL) IV SCH; +methylPREDNISolone 40 MG/ML (Solu-MEDROL) VIAL IV SCH; +methylPREDNISolone 40 MG/ML (Solu-MEDROL) VIAL ONE
[2020-07-10 14:05] VITALS: BP 105/71
== END ==
LOC: SDC 13:21
PROVIDERS: ATTEND Internal Medicine Gastroenterology
DX: K51.90 Ulcerative colitis, unspecified, without complications (principal)
CPT/HCPCS: 96365; 96366; 96374; 96375

== ENCOUNTER 2020-07-24 07:00 | Outpatient (CLI) | payer BC ==
[~2020-07-24 07:00] MED LIST changes: -diphenhydrAMINE 50 MG/ML INJ (BENADRYL) IV SCH; -diphenhydrAMINE 50 MG/ML INJ (BENADRYL) ONE; -inFLIXimab 500 MG/NS 250 ML (EXCEL) IV SCH; -methylPREDNISolone 40 MG/ML (Solu-MEDROL) VIAL IV SCH; -methylPREDNISolone 40 MG/ML (Solu-MEDROL) VIAL ONE
== END 2020-07-24 14:00 | disposition home or self-care (01) ==
LOC: SDC 07:00
PROVIDERS: ATTEND Internal Medicine Gastroenterology
DX: K51.90 Ulcerative colitis, unspecified, without complications (principal)
CPT/HCPCS: 96365; 96366

== ENCOUNTER → 2020-09-04 | Outpatient (CLI) | payer BC ==
[~2020-09-04] MED LIST changes: +ACETAMINOPHEN 500 MG TAB (TYLENOL) ONE; +ACETAMINOPHEN 500 MG TAB (TYLENOL) PO PRN; +ACETAMINOPHEN 500 MG TAB (TYLENOL) PO SCH; +EPINEPHrine INJECTION 1 MG/ML AMP SC PRN; +diphenhydrAMINE 50 MG/ML INJ (BENADRYL) IV PRN; +diphenhydrAMINE 50 MG/ML INJ (BENADRYL) IV SCH; +diphenhydrAMINE 50 MG/ML INJ (BENADRYL) ONE; +inFLIXimab 500 MG/NS 250 ML (EXCEL) IV SCH
[2020-09-04 13:30] VITALS: BP 125/81
[2020-09-04 13:45] LABS: HEMOGLOBIN 15.3 g/dL (13.3-17.7); MEAN PLATELET VOLUME 9.7 fL (9.0-12.2); WHITE BLOOD COUNT 7.6 10^3/uL (4.3-11.0)
[2020-09-04 13:54] LABS: ALBUMIN 4.2 GM/DL (3.2-4.5)
[2020-09-04 13:55] LABS: CHLORIDE 108 MMOL/L (98-107); POTASSIUM 3.7 MMOL/L (3.6-5.0); SODIUM 140 MMOL/L (135-145)
[2020-09-04 13:57] LABS: GLUCOSE 110 MG/DL (70-105)
[2020-09-04 13:58] LABS: CARBON DIOXIDE 19 MMOL/L (21-32)
[2020-09-04 13:59] LABS: BILIRUBIN,TOTAL 0.5 MG/DL (0.1-1.0)
[2020-09-04 14:00] LABS: ALKALINE PHOSPHATASE 53 U/L (40-136)
[2020-09-04 14:01] LABS: CREATININE SERUM 0.85 MG/DL (0.60-1.30); GFR ESTIMATED > 60
[2020-09-04 14:02] LABS: BUN/CREATININE RATIO 19
[2020-09-04 14:04] LABS: ALANINE AMINOTRANSFERASE 20 U/L (0-55)
[2020-09-04 15:05] VITALS: BP 110/72
[2020-09-04 15:35] VITALS: BP 114/73
[2020-09-04 16:05] VITALS: BP 107/70
[2020-09-04 16:37] VITALS: BP 103/66
[2020-09-04 17:04] VITALS: BP 112/66
== END ==
LOC: SDC 13:22
PROVIDERS: ATTEND Hospitalist
DX: K51.90 Ulcerative colitis, unspecified, without complications (principal)
CPT/HCPCS: 36415; 80053; 85027; 96365; 96366

== ENCOUNTER → 2020-10-30 | Outpatient (CLI) | payer BC ==
[~2020-10-30] VITALS: Ht 182.9 cm; Wt 101.0 kg
[~2020-10-30] MED LIST changes: -ACETAMINOPHEN 500 MG TAB (TYLENOL) PO PRN; -diphenhydrAMINE 50 MG/ML INJ (BENADRYL) IV PRN
[2020-10-30 13:00] LABS: HEMATOCRIT 47 % (40-54); MEAN CORPUSCULAR HEMOGLOBIN 29 pg (25-34); MEAN CORPUSCULAR HGB CONC 34 g/dL (32-36); MEAN CORPUSCULAR VOLUME 85 fL (80-99); MEAN PLATELET VOLUME 10.1 fL (9.0-12.2); PLATELET COUNT 305 10^3/uL (130-400); WHITE BLOOD COUNT 7.2 10^3/uL (4.3-11.0)
[2020-10-30 13:15] LABS: ALBUMIN 3.9 GM/DL (3.2-4.5); CHLORIDE 106 MMOL/L (98-107); POTASSIUM 4.1 MMOL/L (3.6-5.0); SODIUM 137 MMOL/L (135-145)
[2020-10-30 13:17] LABS: CALCIUM 8.9 MG/DL (8.5-10.1)
[2020-10-30 13:18] LABS: GLUCOSE 79 MG/DL (70-105); TOTAL PROTEIN 6.4 GM/DL (6.4-8.2)
[2020-10-30 13:19] LABS: CARBON DIOXIDE 20 MMOL/L (21-32)
[2020-10-30 13:20] LABS: BILIRUBIN,TOTAL 0.8 MG/DL (0.1-1.0)
[2020-10-30 13:21] LABS: ALKALINE PHOSPHATASE 42 U/L (40-136); CREATININE SERUM 0.89 MG/DL (0.60-1.30); GFR ESTIMATED > 60
[2020-10-30 13:22] LABS: BUN/CREATININE RATIO 19
[2020-10-30 13:24] LABS: ALANINE AMINOTRANSFERASE 28 U/L (0-55)
[2020-10-30 14:13] VITALS: BP 133/82
== END ==
LOC: SDC 12:16
PROVIDERS: ATTEND Hospitalist
DX: K51.90 Ulcerative colitis, unspecified, without complications (principal)
CPT/HCPCS: 36415; 80053; 85027; 96365; 96366; 96374

== ENCOUNTER 2020-12-26 12:37 | Outpatient (CLI) | payer BC ==
[~2020-12-26 12:37] MED LIST changes: -ACETAMINOPHEN 500 MG TAB (TYLENOL) ONE; -ACETAMINOPHEN 500 MG TAB (TYLENOL) PO SCH; +DICL100G13 TOP; -DICL100G31 TOP; -EPINEPHrine INJECTION 1 MG/ML AMP SC PRN; -diphenhydrAMINE 50 MG/ML INJ (BENADRYL) IV SCH; -diphenhydrAMINE 50 MG/ML INJ (BENADRYL) ONE; -inFLIXimab 500 MG/NS 250 ML (EXCEL) IV SCH
[2020-12-26 12:45] VITALS: BP 114/81
[2020-12-26] MEDS ORDERED: EPINEPHrine INJECTION 1 MG/ML AMP SC PRN (13:00)
[2020-12-26] MEDS ORDERED: inFLIXimab 500 MG/NS 250 ML (EXCEL) IV SCH ×2 (13:00)
[2020-12-26] MEDS ORDERED: ACETAMINOPHEN 500 MG TAB (TYLENOL) PO SCH (13:00)
[2020-12-26] MEDS ORDERED: diphenhydrAMINE 50 MG/ML INJ (BENADRYL) IV SCH (13:00)
[2020-12-26 15:36] LABS: HEMATOCRIT 49 % (40-54); MEAN CORPUSCULAR HEMOGLOBIN 30 pg (25-34); MEAN CORPUSCULAR HGB CONC 35 g/dL (32-36); MEAN CORPUSCULAR VOLUME 87 fL (80-99); MEAN PLATELET VOLUME 10.3 fL (9.0-12.2); PLATELET COUNT 339 10^3/uL (130-400); WHITE BLOOD COUNT 7.2 10^3/uL (4.3-11.0)
[2020-12-26 15:50] LABS: ALBUMIN 4.3 GM/DL (3.2-4.5)
[2020-12-26 15:51] LABS: POTASSIUM 4.2 MMOL/L (3.6-5.0)
[2020-12-26 15:52] LABS: CALCIUM 9.3 MG/DL (8.5-10.1)
[2020-12-26 15:53] LABS: TOTAL PROTEIN 7.3 GM/DL (6.4-8.2)
[2020-12-26 15:55] LABS: BILIRUBIN,TOTAL 0.8 MG/DL (0.1-1.0)
[2020-12-26 15:56] LABS: CREATININE SERUM 1.42 MG/DL (0.60-1.30)
== END 2020-12-26 16:10 ==
LOC: SDC 12:37
PROVIDERS: ATTEND Hospitalist
DX: K51.90 Ulcerative colitis, unspecified, without complications (principal)
CPT/HCPCS: 36415; 80053; 85027

== ENCOUNTER → 2021-02-20 | Outpatient (CLI) | payer BC ==
[~2021-02-20] VITALS: Wt 101.0 kg
[~2021-02-20] MED LIST changes: +ACETAMINOPHEN 500 MG TAB (TYLENOL) PO PRN; +ACETAMINOPHEN 500 MG TAB (TYLENOL) PO SCH; +CATHETER FLUSH 10 ML SYR IV PRN; +EPINEPHrine INJECTION 1 MG/ML AMP SC PRN; +diphenhydrAMINE 50 MG/ML INJ (BENADRYL) IV PRN; +diphenhydrAMINE 50 MG/ML INJ (BENADRYL) IV SCH; +inFLIXimab 500 MG/NS 250 ML (EXCEL) IV SCH
[2021-02-20 12:55] LABS: HEMATOCRIT 47 % (40-54); HEMOGLOBIN 16.1 g/dL (13.3-17.7); MEAN CORPUSCULAR HEMOGLOBIN 30 pg (25-34); MEAN CORPUSCULAR HGB CONC 35 g/dL (32-36); MEAN CORPUSCULAR VOLUME 87 fL (80-99); MEAN PLATELET VOLUME 9.9 fL (9.0-12.2); PLATELET COUNT 277 10^3/uL (130-400); WHITE BLOOD COUNT 6.7 10^3/uL (4.3-11.0)
[2021-02-20 13:23] LABS: ALBUMIN 3.9 GM/DL (3.2-4.5); POTASSIUM 3.9 MMOL/L (3.6-5.0)
[2021-02-20 13:26] LABS: TOTAL PROTEIN 6.5 GM/DL (6.4-8.2)
[2021-02-20 13:27] LABS: BILIRUBIN,TOTAL 0.7 MG/DL (0.1-1.0)
[2021-02-20 13:29] LABS: CREATININE SERUM 0.91 MG/DL (0.60-1.30)
[2021-02-20 15:15] VITALS: BP 109/77
== END ==
LOC: SDC 11:58
PROVIDERS: ATTEND Hospitalist
DX: K51.90 Ulcerative colitis, unspecified, without complications (principal)
CPT/HCPCS: 36415; 80053; 85027; 96365; 96366

== ENCOUNTER 2021-04-17 12:11 | Outpatient (CLI) | payer BC ==
[~2021-04-17] VITALS: Ht 182.9 cm; Wt 100.0 kg
[~2021-04-17 12:11] MED LIST changes: -ACETAMINOPHEN 500 MG TAB (TYLENOL) PO PRN; -ACETAMINOPHEN 500 MG TAB (TYLENOL) PO SCH; -CATHETER FLUSH 10 ML SYR IV PRN; -EPINEPHrine INJECTION 1 MG/ML AMP SC PRN; -diphenhydrAMINE 50 MG/ML INJ (BENADRYL) IV PRN; -diphenhydrAMINE 50 MG/ML INJ (BENADRYL) IV SCH; -inFLIXimab 500 MG/NS 250 ML (EXCEL) IV SCH
[2021-04-17 12:58] VITALS: BP 122/78
[2021-04-17] MEDS ORDERED: diphenhydrAMINE 50 MG/ML INJ (BENADRYL) IV PRN (13:00)
[2021-04-17] MEDS ORDERED: ACETAMINOPHEN 500 MG TAB (TYLENOL) PO SCH (13:00)
[2021-04-17] MEDS ORDERED: CATHETER FLUSH 10 ML SYR IV PRN (13:00)
[2021-04-17] MEDS ORDERED: diphenhydrAMINE 50 MG/ML INJ (BENADRYL) IV SCH (13:00)
[2021-04-17] MEDS ORDERED: EPINEPHrine INJECTION 1 MG/ML AMP SC PRN (13:00)
[2021-04-17] MEDS ORDERED: ACETAMINOPHEN 500 MG TAB (TYLENOL) PO PRN (13:00)
[2021-04-17] MEDS ORDERED: inFLIXimab FOR IV 500 MG in NORMAL SALINE 250 ML IV SCH (13:00)
== END 2021-04-17 16:00 ==
LOC: SDC 12:11
PROVIDERS: ATTEND Hospitalist
DX: K51.90 Ulcerative colitis, unspecified, without complications (principal)
CPT/HCPCS: 96365; 96366

== ENCOUNTER → 2021-06-12 | Outpatient (CLI) | payer BC ==
[~2021-06-12] VITALS: Ht 175.3 cm; Wt 100.0 kg
[~2021-06-12] MED LIST changes: +ACETAMINOPHEN 500 MG TAB (TYLENOL) PO PRN; +ACETAMINOPHEN 500 MG TAB (TYLENOL) PO SCH; +CATHETER FLUSH 10 ML SYR IV PRN; +EPINEPHrine INJECTION 1 MG/ML AMP SC PRN; -LEVO500T80 PO; +LEVO500T81 PO; +diphenhydrAMINE 50 MG/ML INJ (BENADRYL) IV PRN; +diphenhydrAMINE 50 MG/ML INJ (BENADRYL) IV SCH; +inFLIXimab FOR IV 500 MG in NORMAL SALINE 250 ML IV SCH
[2021-06-12 10:44] LABS: BASOPHILS % (AUTO) 1 % (0-10); EOSINOPHILS # (AUTO) 0.2 10^3/uL (0.0-0.3); EOSINOPHILS % (AUTO) 2 % (0-10); HEMATOCRIT 47 % (40-54); HEMOGLOBIN 16.7 g/dL (13.3-17.7); LYMPHOCYTES # (AUTO) 3.2 10^3/uL (1.0-4.0); LYMPHOCYTES % (AUTO) 47 % (12-44); MEAN CORPUSCULAR HEMOGLOBIN 31 pg (25-34); MEAN CORPUSCULAR HGB CONC 36 g/dL (32-36); MEAN CORPUSCULAR VOLUME 86 fL (80-99); MEAN PLATELET VOLUME 9.9 fL (9.0-12.2); MONOCYTES # (AUTO) 0.6 10^3/uL (0.0-1.0); MONOCYTES % (AUTO) 9 % (0-12); NEUTROPHILS # (AUTO) 2.8 10^3/uL (1.8-7.8); NEUTROPHILS % (AUTO) 41 % (42-75); PLATELET COUNT 300 10^3/uL (130-400); WHITE BLOOD COUNT 6.7 10^3/uL (4.3-11.0)
[2021-06-12 10:52] LABS: ALBUMIN 4.1 GM/DL (3.2-4.5); POTASSIUM 3.8 MMOL/L (3.6-5.0)
[2021-06-12 10:54] LABS: CALCIUM 9.2 MG/DL (8.5-10.1)
[2021-06-12 10:57] LABS: BILIRUBIN,TOTAL 0.7 MG/DL (0.1-1.0)
[2021-06-12 10:58] LABS: CREATININE SERUM 0.83 MG/DL (0.60-1.30)
[2021-06-12 13:36] VITALS: BP 126/78
== END ==
LOC: SDC 10:07
PROVIDERS: ATTEND Hospitalist
DX: K51.90 Ulcerative colitis, unspecified, without complications (principal)
CPT/HCPCS: 36415; 80053; 85025

== ENCOUNTER → 2021-07-10 | Outpatient (CLI) | payer BC ==
[~2021-07-10] VITALS: Ht 182.9 cm; Wt 102.7 kg
[~2021-07-10] MED LIST changes: +ACETAMINOPHEN 500 MG TAB (TYLENOL) ONE; +diphenhydrAMINE 50 MG/ML INJ (BENADRYL) ONE
[2021-07-10 11:43] VITALS: BP 116/85
[2021-07-10 13:25] LABS: HEMATOCRIT 47 % (40-54); HEMOGLOBIN 16.4 g/dL (13.3-17.7); MEAN CORPUSCULAR HEMOGLOBIN 31 pg (25-34); MEAN CORPUSCULAR HGB CONC 35 g/dL (32-36); MEAN CORPUSCULAR VOLUME 87 fL (80-99); MEAN PLATELET VOLUME 10.6 fL (9.0-12.2); PLATELET COUNT 322 10^3/uL (130-400); WHITE BLOOD COUNT 7.4 10^3/uL (4.3-11.0)
[2021-07-10 13:26] LABS: ALBUMIN 4.3 GM/DL (3.2-4.5); POTASSIUM 3.8 MMOL/L (3.6-5.0)
[2021-07-10 13:28] LABS: CALCIUM 9.1 MG/DL (8.5-10.1)
[2021-07-10 13:29] LABS: TOTAL PROTEIN 7.2 GM/DL (6.4-8.2)
[2021-07-10 13:31] LABS: BILIRUBIN,TOTAL 0.7 MG/DL (0.1-1.0)
[2021-07-10 13:32] LABS: CREATININE SERUM 0.87 MG/DL (0.60-1.30)
== END ==
LOC: SDC 09:59
PROVIDERS: ATTEND Hospitalist
DX: K51.90 Ulcerative colitis, unspecified, without complications (principal)
CPT/HCPCS: 36415; 80053; 85027; 96365; 96366; 96374

== ENCOUNTER 2021-08-03 15:34 | Emergency (ER) | payer BC ==
[~2021-08-03] VITALS: Ht 182 cm; Wt 100.0 kg
[~2021-08-03 15:34] MED LIST changes: -ACETAMINOPHEN 500 MG TAB (TYLENOL) ONE; -ACETAMINOPHEN 500 MG TAB (TYLENOL) PO PRN; -ACETAMINOPHEN 500 MG TAB (TYLENOL) PO SCH; -CATHETER FLUSH 10 ML SYR IV PRN; -EPINEPHrine INJECTION 1 MG/ML AMP SC PRN; -diphenhydrAMINE 50 MG/ML INJ (BENADRYL) IV PRN; -diphenhydrAMINE 50 MG/ML INJ (BENADRYL) IV SCH; -diphenhydrAMINE 50 MG/ML INJ (BENADRYL) ONE; -inFLIXimab FOR IV 500 MG in NORMAL SALINE 250 ML IV SCH
[2021-08-03 15:44] VITALS: BP 146/95
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
[2021-08-03 16:18] LABS: BASOPHILS # (AUTO) 0.1 10^3/uL (0.0-0.1); BASOPHILS % (AUTO) 1 % (0-10); EOSINOPHILS # (AUTO) 0.1 10^3/uL (0.0-0.3); EOSINOPHILS % (AUTO) 2 % (0-10); HEMATOCRIT 43 % (40-54); HEMOGLOBIN 15.6 g/dL (13.3-17.7); LYMPHOCYTES # (AUTO) 3.4 10^3/uL (1.0-4.0); LYMPHOCYTES % (AUTO) 42 % (12-44); MEAN CORPUSCULAR HEMOGLOBIN 31 pg (25-34); MEAN CORPUSCULAR HGB CONC 36 g/dL (32-36); MEAN CORPUSCULAR VOLUME 85 fL (80-99); MEAN PLATELET VOLUME 9.7 fL (9.0-12.2); MONOCYTES # (AUTO) 0.6 10^3/uL (0.0-1.0); MONOCYTES % (AUTO) 7 % (0-12); NEUTROPHILS % (AUTO) 49 % (42-75); PLATELET COUNT 289 10^3/uL (130-400); WHITE BLOOD COUNT 8.1 10^3/uL (4.3-11.0)
[2021-08-03 16:29] LABS: PROTHROMBIN TIME PATIENT 13.3 SEC (12.2-14.7)
[2021-08-03 16:38] LABS: BILIRUBIN,TOTAL 0.6 MG/DL (0.1-1.0); CALCIUM 9.2 MG/DL (8.5-10.1); CREATININE SERUM 0.89 MG/DL (0.60-1.30); POTASSIUM 3.9 MMOL/L (3.6-5.0)
[2021-08-03 16:39] LABS: ALBUMIN 4.3 GM/DL (3.2-4.5); TOTAL PROTEIN 7.1 GM/DL (6.4-8.2)
== END 2021-08-03 16:52 | disposition home or self-care (01) ==
LOC: EDUNIT# 15:34 → ER FS 15:35
DX: R04.0 Epistaxis (principal)
CPT/HCPCS: 36415; 80053; 85025; 85610; 85730; 99282

== ENCOUNTER → 2021-08-07 | Outpatient (CLI) | payer BC ==
[~2021-08-07] VITALS: Ht 182.9 cm; Wt 102.2 kg
[~2021-08-07] MED LIST changes: +ACETAMINOPHEN 500 MG TAB (TYLENOL) ONE; +ACETAMINOPHEN 500 MG TAB (TYLENOL) PO SCH; +CATHETER FLUSH 10 ML SYR IVP PRN; +diphenhydrAMINE 50 MG/ML INJ (BENADRYL) IV SCH; +diphenhydrAMINE 50 MG/ML INJ (BENADRYL) ONE; +inFLIXimab 500 MG/NS 250 ML (EXCEL) IV SCH
[2021-08-07 10:57] LABS: HEMATOCRIT 46 % (40-54); HEMOGLOBIN 16.4 g/dL (13.3-17.7); MEAN CORPUSCULAR HEMOGLOBIN 31 pg (25-34); MEAN CORPUSCULAR HGB CONC 35 g/dL (32-36); MEAN CORPUSCULAR VOLUME 87 fL (80-99); PLATELET COUNT 323 10^3/uL (130-400); WHITE BLOOD COUNT 7.4 10^3/uL (4.3-11.0)
[2021-08-07 11:18] LABS: BILIRUBIN,TOTAL 0.8 MG/DL (0.1-1.0); CREATININE SERUM 0.81 MG/DL (0.60-1.30); POTASSIUM 4.3 MMOL/L (3.6-5.0); TOTAL PROTEIN 6.7 GM/DL (6.4-8.2)
[2021-08-07 13:35] VITALS: BP 120/78
== END ==
LOC: SDC 10:17
PROVIDERS: ATTEND Hospitalist
DX: K51.90 Ulcerative colitis, unspecified, without complications (principal)
CPT/HCPCS: 36415; 80053; 85027; 96365; 96366; 96374

== ENCOUNTER → 2021-09-04 | Outpatient (CLI) | payer BC ==
[~2021-09-04] VITALS: Ht 182.9 cm; Wt 102.2 kg
[2021-09-04 10:49] LABS: BASOPHILS % (AUTO) 1 % (0-10); EOSINOPHILS # (AUTO) 0.1 10^3/uL (0.0-0.3); EOSINOPHILS % (AUTO) 2 % (0-10); HEMATOCRIT 47 % (40-54); HEMOGLOBIN 16.6 g/dL (13.3-17.7); LYMPHOCYTES # (AUTO) 3.7 10^3/uL (1.0-4.0); LYMPHOCYTES % (AUTO) 49 % (12-44); MEAN CORPUSCULAR HEMOGLOBIN 31 pg (25-34); MEAN CORPUSCULAR HGB CONC 35 g/dL (32-36); MEAN CORPUSCULAR VOLUME 88 fL (80-99); MEAN PLATELET VOLUME 9.8 fL (9.0-12.2); MONOCYTES # (AUTO) 0.5 10^3/uL (0.0-1.0); MONOCYTES % (AUTO) 7 % (0-12); NEUTROPHILS # (AUTO) 3.1 10^3/uL (1.8-7.8); NEUTROPHILS % (AUTO) 41 % (42-75); PLATELET COUNT 305 10^3/uL (130-400); WHITE BLOOD COUNT 7.5 10^3/uL (4.3-11.0)
[2021-09-04 11:11] LABS: ALBUMIN 4.2 GM/DL (3.2-4.5); BILIRUBIN,TOTAL 0.8 MG/DL (0.1-1.0); CALCIUM 9.2 MG/DL (8.5-10.1); POTASSIUM 4.3 MMOL/L (3.6-5.0); TOTAL PROTEIN 7.1 GM/DL (6.4-8.2)
[2021-09-04 11:20] VITALS: BP 122/76
== END ==
LOC: SDC 10:23
PROVIDERS: ATTEND Hospitalist
DX: K51.90 Ulcerative colitis, unspecified, without complications (principal)
CPT/HCPCS: 36415; 80053; 85025; 96365; 96366; 96374

== ENCOUNTER → 2021-10-02 | Outpatient (CLI) | payer BC ==
[~2021-10-02] MED LIST changes: -ACETAMINOPHEN 500 MG TAB (TYLENOL) PO SCH; -CATHETER FLUSH 10 ML SYR IVP PRN; -diphenhydrAMINE 50 MG/ML INJ (BENADRYL) IV SCH; -inFLIXimab 500 MG/NS 250 ML (EXCEL) IV SCH
[2021-10-02 11:14] LABS: HEMATOCRIT 46 % (40-54); HEMOGLOBIN 16.5 g/dL (13.3-17.7); MEAN CORPUSCULAR HEMOGLOBIN 31 pg (25-34); MEAN CORPUSCULAR HGB CONC 36 g/dL (32-36); MEAN CORPUSCULAR VOLUME 87 fL (80-99); MEAN PLATELET VOLUME 9.9 fL (9.0-12.2); PLATELET COUNT 299 10^3/uL (130-400)
[2021-10-02 11:40] LABS: ALBUMIN 4.1 GM/DL (3.2-4.5); BILIRUBIN,TOTAL 0.6 MG/DL (0.1-1.0); CALCIUM 9.1 MG/DL (8.5-10.1); CREATININE SERUM 0.79 MG/DL (0.60-1.30); POTASSIUM 4.3 MMOL/L (3.6-5.0); TOTAL PROTEIN 6.9 GM/DL (6.4-8.2)
== END ==
LOC: SDC 10:17
PROVIDERS: ATTEND Hospitalist
DX: K51.90 Ulcerative colitis, unspecified, without complications (principal)
CPT/HCPCS: 36415; 80053; 85027; 96365; 96366

== ENCOUNTER → 2021-10-02 | Outpatient (CLI) | payer BC ==
[~2021-10-02] VITALS: Wt 102.2 kg
[~2021-10-02] MED LIST changes: -ACETAMINOPHEN 500 MG TAB (TYLENOL) ONE; +ACETAMINOPHEN 500 MG TAB (TYLENOL) PO SCH; +diphenhydrAMINE 50 MG/ML INJ (BENADRYL) IV SCH; -diphenhydrAMINE 50 MG/ML INJ (BENADRYL) ONE; +inFLIXimab 500 MG/NS 250 ML (EXCEL) IV SCH
[2021-10-02 10:30] VITALS: BP 124/76
== END ==
LOC: SDC 10:22
PROVIDERS: ATTEND Family Medicine
DX: R53.83 Other fatigue (principal)
CPT/HCPCS: 36415; 82306; 82525; 82607; 82728; 83540; 83550; 83735; 84630; 96374

== ENCOUNTER → 2021-10-30 | Outpatient (CLI) | payer BC ==
[~2021-10-30] MED LIST changes: +ACETAMINOPHEN 500 MG TAB (TYLENOL) ONE
[2021-10-30 10:40] VITALS: BP 115/74
[2021-10-30 11:21] LABS: HEMATOCRIT 46 % (40-54); HEMOGLOBIN 16.3 g/dL (13.3-17.7); MEAN CORPUSCULAR HEMOGLOBIN 30 pg (25-34); MEAN CORPUSCULAR HGB CONC 35 g/dL (32-36); MEAN CORPUSCULAR VOLUME 87 fL (80-99); PLATELET COUNT 287 10^3/uL (130-400)
[2021-10-30 11:39] LABS: BILIRUBIN,TOTAL 0.5 MG/DL (0.1-1.0); CALCIUM 8.9 MG/DL (8.5-10.1); CREATININE SERUM 0.75 MG/DL (0.60-1.30); POTASSIUM 4.4 MMOL/L (3.6-5.0); TOTAL PROTEIN 6.8 GM/DL (6.4-8.2)
== END ==
LOC: SDC 10:33
PROVIDERS: ATTEND Hospitalist
DX: K51.90 Ulcerative colitis, unspecified, without complications (principal)
CPT/HCPCS: 36415; 80053; 85027; 96365; 96366

== ENCOUNTER → 2021-11-27 | Outpatient (CLI) | payer BC ==
[~2021-11-27] VITALS: Ht 182.9 cm; Wt 102.2 kg
[~2021-11-27] MED LIST changes: +diphenhydrAMINE 50 MG/ML INJ (BENADRYL) ONE
[2021-11-27 10:35] LABS: HEMATOCRIT 46 % (40-54); HEMOGLOBIN 16.5 g/dL (13.3-17.7); MEAN CORPUSCULAR HEMOGLOBIN 31 pg (25-34); MEAN CORPUSCULAR HGB CONC 36 g/dL (32-36); MEAN CORPUSCULAR VOLUME 87 fL (80-99); MEAN PLATELET VOLUME 9.6 fL (9.0-12.2); PLATELET COUNT 289 10^3/uL (130-400); WHITE BLOOD COUNT 7.3 10^3/uL (4.3-11.0)
[2021-11-27 10:48] LABS: ALBUMIN 4.1 GM/DL (3.2-4.5); POTASSIUM 4.3 MMOL/L (3.6-5.0)
[2021-11-27 10:50] LABS: CALCIUM 9.2 MG/DL (8.5-10.1)
[2021-11-27 10:51] LABS: TOTAL PROTEIN 6.9 GM/DL (6.4-8.2)
[2021-11-27 10:53] LABS: BILIRUBIN,TOTAL 0.6 MG/DL (0.1-1.0)
[2021-11-27 10:54] LABS: CREATININE SERUM 0.89 MG/DL (0.60-1.30)
[2021-11-27 10:57] VITALS: BP 115/71
== END ==
LOC: SDC 09:41
PROVIDERS: ATTEND Hospitalist
DX: K51.90 Ulcerative colitis, unspecified, without complications (principal); Z79.899 Other long term (current) drug therapy
CPT/HCPCS: 36415; 80053; 85027; 96372

== ENCOUNTER → 2022-01-01 | Outpatient (CLI) | payer BC ==
[~2022-01-01] VITALS: Wt 100.0 kg
[~2022-01-01] MED LIST changes: -ACETAMINOPHEN 500 MG TAB (TYLENOL) ONE; +CATHETER FLUSH 10 ML SYR IVP PRN; -diphenhydrAMINE 50 MG/ML INJ (BENADRYL) ONE
[2022-01-01 10:11] LABS: HEMATOCRIT 48 % (40-54); HEMOGLOBIN 16.6 g/dL (13.3-17.7); MEAN CORPUSCULAR HEMOGLOBIN 31 pg (25-34); MEAN CORPUSCULAR HGB CONC 35 g/dL (32-36); MEAN CORPUSCULAR VOLUME 87 fL (80-99); MEAN PLATELET VOLUME 9.5 fL (9.0-12.2); PLATELET COUNT 290 10^3/uL (130-400); WHITE BLOOD COUNT 8.2 10^3/uL (4.3-11.0)
[2022-01-01 10:22] VITALS: BP 118/78
[2022-01-01 10:25] LABS: ALBUMIN 4.1 GM/DL (3.2-4.5)
[2022-01-01 10:26] LABS: POTASSIUM 4.6 MMOL/L (3.6-5.0)
[2022-01-01 10:27] LABS: CALCIUM 9.2 MG/DL (8.5-10.1)
[2022-01-01 10:28] LABS: TOTAL PROTEIN 6.9 GM/DL (6.4-8.2)
[2022-01-01 10:30] LABS: BILIRUBIN,TOTAL 0.9 MG/DL (0.1-1.0)
[2022-01-01 10:32] LABS: CREATININE SERUM 0.85 MG/DL (0.60-1.30)
== END ==
LOC: SDC 09:26
PROVIDERS: ATTEND Hospitalist
DX: K51.90 Ulcerative colitis, unspecified, without complications (principal)
CPT/HCPCS: 36415; 80053; 85027; 96365; 96366

== ENCOUNTER → 2022-02-16 | Outpatient (CLI) | payer BC ==
[~2022-02-16] VITALS: Ht 182.9 cm; Wt 103.6 kg
[~2022-02-16] MED LIST changes: -CATHETER FLUSH 10 ML SYR IVP PRN; +LEVO-55 PO; -LEVO500T81 PO; -inFLIXimab 500 MG/NS 250 ML (EXCEL) IV SCH; +inFLIXimab FOR IV 500 MG in NORMAL SALINE 250 ML IV SCH
[2022-02-16 09:30] VITALS: BP 118/72
[2022-02-16 10:10] LABS: BASOPHILS % (AUTO) 0 % (0-10); EOSINOPHILS # (AUTO) 0.1 10^3/uL (0.0-0.3); EOSINOPHILS % (AUTO) 1 % (0-10); HEMATOCRIT 46 % (40-54); HEMOGLOBIN 16.2 g/dL (13.3-17.7); LYMPHOCYTES # (AUTO) 3.3 10^3/uL (1.0-4.0); LYMPHOCYTES % (AUTO) 31 % (12-44); MEAN CORPUSCULAR HEMOGLOBIN 31 pg (25-34); MEAN CORPUSCULAR HGB CONC 35 g/dL (32-36); MEAN CORPUSCULAR VOLUME 87 fL (80-99); MEAN PLATELET VOLUME 9.9 fL (9.0-12.2); MONOCYTES # (AUTO) 0.7 10^3/uL (0.0-1.0); MONOCYTES % (AUTO) 7 % (0-12); NEUTROPHILS # (AUTO) 6.4 10^3/uL (1.8-7.8); NEUTROPHILS % (AUTO) 60 % (42-75); PLATELET COUNT 303 10^3/uL (130-400); WHITE BLOOD COUNT 10.5 10^3/uL (4.3-11.0)
[2022-02-16 10:26] LABS: ALBUMIN 3.9 GM/DL (3.2-4.5); BILIRUBIN,TOTAL 0.7 MG/DL (0.1-1.0); CALCIUM 8.9 MG/DL (8.5-10.1); CREATININE SERUM 0.79 MG/DL (0.60-1.30); POTASSIUM 4.2 MMOL/L (3.6-5.0); TOTAL PROTEIN 6.8 GM/DL (6.4-8.2)
== END ==
LOC: SDC 09:22
PROVIDERS: ATTEND Hospitalist
DX: K51.90 Ulcerative colitis, unspecified, without complications (principal)
CPT/HCPCS: 36415; 80053; 85025; 96365; 96366

== ENCOUNTER 2022-03-19 09:17 | Outpatient (CLI) | payer BC ==
[~2022-03-19] VITALS: Wt 101.3 kg
[~2022-03-19 09:17] MED LIST changes: -ACETAMINOPHEN 500 MG TAB (TYLENOL) PO SCH; -diphenhydrAMINE 50 MG/ML INJ (BENADRYL) IV SCH; -inFLIXimab FOR IV 500 MG in NORMAL SALINE 250 ML IV SCH
[2022-03-19 09:20] VITALS: BP 111/88
[2022-03-19 09:41] LABS: HEMATOCRIT 48 % (40-54); HEMOGLOBIN 16.9 g/dL (13.3-17.7); MEAN CORPUSCULAR HEMOGLOBIN 31 pg (25-34); MEAN CORPUSCULAR HGB CONC 35 g/dL (32-36); MEAN CORPUSCULAR VOLUME 86 fL (80-99); MEAN PLATELET VOLUME 9.6 fL (9.0-12.2); PLATELET COUNT 315 10^3/uL (130-400); WHITE BLOOD COUNT 12.8 10^3/uL (4.3-11.0)
[2022-03-19] MEDS ORDERED: inFLIXimab 500 MG/NS 250 ML (EXCEL) IV SCH ×2 (09:45)
[2022-03-19] MEDS ORDERED: CATHETER FLUSH 10 ML SYR IVP PRN (09:45)
[2022-03-19] MEDS ORDERED: diphenhydrAMINE 25 MG TAB (BENADRYL) PO SCH (09:45)
[2022-03-19] MEDS ORDERED: ACETAMINOPHEN 500 MG TAB (TYLENOL) PO SCH (09:45)
[2022-03-19] MEDS ORDERED: diphenhydrAMINE 50 MG/ML INJ (BENADRYL) ONE (09:55)
[2022-03-19 09:57] LABS: POTASSIUM 4.3 MMOL/L (3.6-5.0)
[2022-03-19 09:58] LABS: CALCIUM 9.2 MG/DL (8.5-10.1)
[2022-03-19 09:59] LABS: TOTAL PROTEIN 6.9 GM/DL (6.4-8.2)
[2022-03-19 10:01] LABS: BILIRUBIN,TOTAL 0.8 MG/DL (0.1-1.0)
[2022-03-19 10:03] LABS: CREATININE SERUM 0.84 MG/DL (0.60-1.30)
[2022-03-19] MEDS ORDERED: diphenhydrAMINE 50 MG/ML INJ (BENADRYL) IV SCH (10:45)
== END 2022-03-19 12:30 | disposition home or self-care (01) ==
LOC: SDC 09:17
PROVIDERS: ATTEND Hospitalist
DX: K51.90 Ulcerative colitis, unspecified, without complications (principal)
CPT/HCPCS: 36415; 80053; 85027; 96365; 96366; 96374

== ENCOUNTER → 2022-04-16 | Outpatient (CLI) | payer BC ==
[~2022-04-16] VITALS: Ht 182.9 cm; Wt 100.0 kg
[~2022-04-16] MED LIST changes: +ACETAMINOPHEN 500 MG TAB (TYLENOL) ONE; +ACETAMINOPHEN 500 MG TAB (TYLENOL) PO SCH; +CATHETER FLUSH 10 ML SYR IVP PRN; +INFLIXIMAB IV SCH; +SODIUM CHLORIDE IV SCH; +diphenhydrAMINE 50 MG/ML INJ (BENADRYL) IV SCH; +diphenhydrAMINE 50 MG/ML INJ (BENADRYL) ONE
[2022-04-16 10:04] LABS: HEMATOCRIT 46 % (40-54); HEMOGLOBIN 16.2 g/dL (13.3-17.7); MEAN CORPUSCULAR HEMOGLOBIN 30 pg (25-34); MEAN CORPUSCULAR HGB CONC 35 g/dL (32-36); MEAN CORPUSCULAR VOLUME 86 fL (80-99); MEAN PLATELET VOLUME 9.8 fL (9.0-12.2); PLATELET COUNT 289 10^3/uL (130-400); WHITE BLOOD COUNT 8.9 10^3/uL (4.3-11.0)
[2022-04-16 10:49] LABS: ALBUMIN 3.9 GM/DL (3.2-4.5); BILIRUBIN,TOTAL 0.7 MG/DL (0.1-1.0); CALCIUM 8.9 MG/DL (8.5-10.1); CREATININE SERUM 0.81 MG/DL (0.60-1.30); POTASSIUM 4.2 MMOL/L (3.6-5.0); TOTAL PROTEIN 6.6 GM/DL (6.4-8.2)
[2022-04-16 12:20] VITALS: BP 106/74
== END ==
LOC: SDC 09:26
PROVIDERS: ATTEND Hospitalist
DX: K51.90 Ulcerative colitis, unspecified, without complications (principal)
CPT/HCPCS: 36415; 80053; 85027; 96365; 96366

== ENCOUNTER → 2022-05-14 | Outpatient (CLI) | payer BC ==
[~2022-05-14] VITALS: Ht 182.9 cm; Wt 102.7 kg
[~2022-05-14] MED LIST changes: -INFLIXIMAB IV SCH; -SODIUM CHLORIDE IV SCH; +diphenhydrAMINE 25 MG TAB (BENADRYL) PO ONE; -diphenhydrAMINE 50 MG/ML INJ (BENADRYL) ONE; +inFLIXimab 500 MG/NS 250 ML (EXCEL) IV SCH
[2022-05-14 10:45] VITALS: BP 115/82
[2022-05-14 11:44] LABS: HEMATOCRIT 47 % (40-54); HEMOGLOBIN 16.6 g/dL (13.3-17.7); MEAN CORPUSCULAR HEMOGLOBIN 31 pg (25-34); MEAN CORPUSCULAR HGB CONC 36 g/dL (32-36); MEAN CORPUSCULAR VOLUME 86 fL (80-99); MEAN PLATELET VOLUME 9.8 fL (9.0-12.2); PLATELET COUNT 281 10^3/uL (130-400); WHITE BLOOD COUNT 7.9 10^3/uL (4.3-11.0)
[2022-05-14 12:12] LABS: BILIRUBIN,TOTAL 0.6 MG/DL (0.1-1.0); CALCIUM 8.9 MG/DL (8.5-10.1); CREATININE SERUM 0.84 MG/DL (0.60-1.30); POTASSIUM 3.7 MMOL/L (3.6-5.0); TOTAL PROTEIN 6.8 GM/DL (6.4-8.2)
== END ==
LOC: SDC 10:43
PROVIDERS: ATTEND Hospitalist
DX: K51.90 Ulcerative colitis, unspecified, without complications (principal)
CPT/HCPCS: 36415; 80053; 85027; 96365; 96366

== ENCOUNTER 2022-06-11 10:08 | Outpatient (CLI) | payer BC ==
[~2022-06-11] VITALS: Ht 182 cm; Wt 103.0 kg
[~2022-06-11 10:08] MED LIST changes: -ACETAMINOPHEN 500 MG TAB (TYLENOL) ONE; -ACETAMINOPHEN 500 MG TAB (TYLENOL) PO SCH; -CATHETER FLUSH 10 ML SYR IVP PRN; -diphenhydrAMINE 25 MG TAB (BENADRYL) PO ONE; -diphenhydrAMINE 50 MG/ML INJ (BENADRYL) IV SCH; -inFLIXimab 500 MG/NS 250 ML (EXCEL) IV SCH
[2022-06-11 10:45] VITALS: BP 115/77
[2022-06-11] MEDS ORDERED: CATHETER FLUSH 10 ML SYR IVP PRN (10:45)
[2022-06-11] MEDS ORDERED: diphenhydrAMINE 50 MG/ML INJ (BENADRYL) IV SCH (10:45)
[2022-06-11] MEDS ORDERED: ACETAMINOPHEN 500 MG TAB (TYLENOL) PO SCH (10:45)
[2022-06-11] MEDS ORDERED: inFLIXimab 500 MG/NS 250 ML (EXCEL) IV SCH ×2 (11:00)
[2022-06-11 11:07] LABS: HEMATOCRIT 46 % (40-54); HEMOGLOBIN 16.4 g/dL (13.3-17.7); MEAN CORPUSCULAR HEMOGLOBIN 31 pg (25-34); MEAN CORPUSCULAR HGB CONC 36 g/dL (32-36); MEAN CORPUSCULAR VOLUME 86 fL (80-99); MEAN PLATELET VOLUME 9.4 fL (9.0-12.2); PLATELET COUNT 307 10^3/uL (130-400); WHITE BLOOD COUNT 7.6 10^3/uL (4.3-11.0)
[2022-06-11 11:31] LABS: CALCIUM 8.9 MG/DL (8.5-10.1); CREATININE SERUM 0.82 MG/DL (0.60-1.30); TOTAL PROTEIN 6.6 GM/DL (6.4-8.2)
== END 2022-06-11 13:48 ==
LOC: SDC 10:08
PROVIDERS: ATTEND Hospitalist
DX: K51.90 Ulcerative colitis, unspecified, without complications (principal); Z79.899 Other long term (current) drug therapy
CPT/HCPCS: 36415; 80053; 85027; 96365; 96366

== ENCOUNTER → 2022-07-09 | Outpatient (CLI) | payer BC ==
[~2022-07-09] VITALS: Wt 99.8 kg
[~2022-07-09] MED LIST changes: +ACETAMINOPHEN 500 MG TAB (TYLENOL) PO SCH; +CATHETER FLUSH 10 ML SYR IVP PRN; +diphenhydrAMINE 50 MG/ML INJ (BENADRYL) IV SCH; +inFLIXimab 500 MG/NS 250 ML (EXCEL) IV SCH
[2022-07-09 10:10] VITALS: BP 113/83
[2022-07-09 10:21] LABS: HEMATOCRIT 47 % (40-54); HEMOGLOBIN 16.8 g/dL (13.3-17.7); MEAN CORPUSCULAR HEMOGLOBIN 31 pg (25-34); MEAN CORPUSCULAR HGB CONC 36 g/dL (32-36); MEAN CORPUSCULAR VOLUME 86 fL (80-99); MEAN PLATELET VOLUME 9.7 fL (9.0-12.2); PLATELET COUNT 268 10^3/uL (130-400); WHITE BLOOD COUNT 7.8 10^3/uL (4.3-11.0)
[2022-07-09 10:42] LABS: ALBUMIN 3.9 GM/DL (3.2-4.5); BILIRUBIN,TOTAL 0.7 MG/DL (0.1-1.0); CREATININE SERUM 0.86 MG/DL (0.60-1.30); POTASSIUM 4.1 MMOL/L (3.6-5.0); TOTAL PROTEIN 6.8 GM/DL (6.4-8.2)
== END ==
LOC: SDC 09:45
PROVIDERS: ATTEND Hospitalist
DX: K51.90 Ulcerative colitis, unspecified, without complications (principal)
CPT/HCPCS: 36415; 80053; 85027; 96365; 96366

== ENCOUNTER → 2022-08-06 | Outpatient (CLI) | payer BC ==
[~2022-08-06] VITALS: Ht 182.9 cm; Wt 102.0 kg
[~2022-08-06] MED LIST changes: +ACETAMINOPHEN 500 MG TAB (TYLENOL) ONE; +diphenhydrAMINE 50 MG/ML INJ (BENADRYL) ONE
[2022-08-06 10:37] LABS: HEMATOCRIT 47 % (40-54); HEMOGLOBIN 16.8 g/dL (13.3-17.7); MEAN CORPUSCULAR HEMOGLOBIN 31 pg (25-34); MEAN CORPUSCULAR HGB CONC 36 g/dL (32-36); MEAN CORPUSCULAR VOLUME 85 fL (80-99); MEAN PLATELET VOLUME 9.7 fL (9.0-12.2); PLATELET COUNT 292 10^3/uL (130-400); WHITE BLOOD COUNT 6.3 10^3/uL (4.3-11.0)
[2022-08-06 10:56] LABS: BILIRUBIN,TOTAL 0.8 MG/DL (0.1-1.0); CALCIUM 8.9 MG/DL (8.5-10.1); CREATININE SERUM 0.85 MG/DL (0.60-1.30); POTASSIUM 4.2 MMOL/L (3.6-5.0); TOTAL PROTEIN 6.7 GM/DL (6.4-8.2)
[2022-08-06 11:14] VITALS: BP 120/80
== END ==
LOC: SDC 10:07
PROVIDERS: ATTEND Hospitalist
DX: K51.90 Ulcerative colitis, unspecified, without complications (principal)
CPT/HCPCS: 36415; 80053; 85027; 96365; 96366

== ENCOUNTER → 2022-09-06 | Outpatient (CLI) | payer BC ==
[~2022-09-06] VITALS: Ht 182 cm; Wt 100.1 kg
[~2022-09-06] MED LIST changes: -ACETAMINOPHEN 500 MG TAB (TYLENOL) ONE; -diphenhydrAMINE 50 MG/ML INJ (BENADRYL) ONE
[2022-09-06 10:58] LABS: HEMATOCRIT 46 % (40-54); HEMOGLOBIN 16.6 g/dL (13.3-17.7); MEAN CORPUSCULAR HEMOGLOBIN 31 pg (25-34); MEAN CORPUSCULAR HGB CONC 36 g/dL (32-36); MEAN CORPUSCULAR VOLUME 86 fL (80-99); MEAN PLATELET VOLUME 10.2 fL (9.0-12.2); PLATELET COUNT 283 10^3/uL (130-400); WHITE BLOOD COUNT 9.1 10^3/uL (4.3-11.0)
[2022-09-06 11:00] VITALS: BP 128/81
[2022-09-06 11:21] LABS: ALBUMIN 3.9 GM/DL (3.2-4.5); BILIRUBIN,TOTAL 0.5 MG/DL (0.1-1.0); CALCIUM 9.1 MG/DL (8.5-10.1); CREATININE SERUM 0.85 MG/DL (0.60-1.30); POTASSIUM 4.3 MMOL/L (3.6-5.0); TOTAL PROTEIN 6.9 GM/DL (6.4-8.2)
== END ==
LOC: SDC 10:08
PROVIDERS: ATTEND Hospitalist
DX: K51.90 Ulcerative colitis, unspecified, without complications (principal)
CPT/HCPCS: 36415; 80053; 85027; 96365; 96366

== ENCOUNTER → 2022-10-08 | Outpatient (CLI) | payer BC ==
[2022-10-08 11:20] VITALS: BP 112/73
[2022-10-08 11:32] LABS: HEMATOCRIT 45 % (40-54); HEMOGLOBIN 15.9 g/dL (13.3-17.7); MEAN CORPUSCULAR HEMOGLOBIN 31 pg (25-34); MEAN CORPUSCULAR HGB CONC 35 g/dL (32-36); MEAN CORPUSCULAR VOLUME 86 fL (80-99); MEAN PLATELET VOLUME 9.5 fL (9.0-12.2); PLATELET COUNT 293 10^3/uL (130-400); WHITE BLOOD COUNT 6.8 10^3/uL (4.3-11.0)
[2022-10-08 11:45] LABS: ALBUMIN 3.9 GM/DL (3.2-4.5); POTASSIUM 3.9 MMOL/L (3.6-5.0)
[2022-10-08 11:46] LABS: CALCIUM 8.8 MG/DL (8.5-10.1)
[2022-10-08 11:48] LABS: TOTAL PROTEIN 6.8 GM/DL (6.4-8.2)
[2022-10-08 11:49] LABS: BILIRUBIN,TOTAL 0.9 MG/DL (0.1-1.0)
[2022-10-08 11:51] LABS: CREATININE SERUM 0.79 MG/DL (0.60-1.30)
== END ==
LOC: SDC 10:33
PROVIDERS: ATTEND Hospitalist
DX: K51.90 Ulcerative colitis, unspecified, without complications (principal); Z79.899 Other long term (current) drug therapy
CPT/HCPCS: 36415; 80053; 85027

== ENCOUNTER → 2022-11-05 | Outpatient (CLI) | payer BC ==
[~2022-11-05] MED LIST changes: -CATHETER FLUSH 10 ML SYR IVP PRN
[2022-11-05 10:30] VITALS: BP 113/83
[2022-11-05 11:03] LABS: BASOPHILS % (AUTO) 1 % (0-10); EOSINOPHILS # (AUTO) 0.1 10^3/uL (0.0-0.3); EOSINOPHILS % (AUTO) 2 % (0-10); HEMATOCRIT 45 % (40-54); HEMOGLOBIN 16.3 g/dL (13.3-17.7); LYMPHOCYTES # (AUTO) 3.1 10^3/uL (1.0-4.0); LYMPHOCYTES % (AUTO) 44 % (12-44); MEAN CORPUSCULAR HEMOGLOBIN 31 pg (25-34); MEAN CORPUSCULAR HGB CONC 36 g/dL (32-36); MEAN CORPUSCULAR VOLUME 85 fL (80-99); MEAN PLATELET VOLUME 9.7 fL (9.0-12.2); MONOCYTES # (AUTO) 0.5 10^3/uL (0.0-1.0); MONOCYTES % (AUTO) 7 % (0-12); NEUTROPHILS # (AUTO) 3.2 10^3/uL (1.8-7.8); NEUTROPHILS % (AUTO) 47 % (42-75); PLATELET COUNT 267 10^3/uL (130-400); WHITE BLOOD COUNT 6.9 10^3/uL (4.3-11.0)
[2022-11-05 11:25] LABS: ALBUMIN 3.9 GM/DL (3.2-4.5); BILIRUBIN,TOTAL 0.5 MG/DL (0.1-1.0); CALCIUM 8.8 MG/DL (8.5-10.1); CREATININE SERUM 0.86 MG/DL (0.60-1.30); POTASSIUM 4.2 MMOL/L (3.6-5.0); TOTAL PROTEIN 6.8 GM/DL (6.4-8.2)
== END ==
LOC: SDC 10:27
PROVIDERS: ATTEND Hospitalist
DX: K51.90 Ulcerative colitis, unspecified, without complications (principal)
CPT/HCPCS: 36415; 80053; 85025

== ENCOUNTER → 2022-12-03 | Outpatient (CLI) | payer BC ==
[~2022-12-03] MED LIST changes: +ACETAMINOPHEN 500 MG TAB (TYLENOL) PO ONE; +ACETAMINOPHEN 500 MG TAB (TYLENOL) PO PRN; -ACETAMINOPHEN 500 MG TAB (TYLENOL) PO SCH; +CATHETER FLUSH 10 ML SYR IVP PRN; +EPINEPHrine INJECTION 1 MG/ML AMP IM PRN; +diphenhydrAMINE 50 MG/ML INJ (BENADRYL) IV ONE; +diphenhydrAMINE 50 MG/ML INJ (BENADRYL) IV PRN; -diphenhydrAMINE 50 MG/ML INJ (BENADRYL) IV SCH; -inFLIXimab 500 MG/NS 250 ML (EXCEL) IV SCH; +inFLIXimab FOR IV 500 MG in NORMAL SALINE 250 ML IV SCH
[2022-12-03 11:00] VITALS: BP 113/76
[2022-12-03 11:14] LABS: HEMATOCRIT 47 % (40-54); HEMOGLOBIN 16.6 g/dL (13.3-17.7); MEAN CORPUSCULAR HEMOGLOBIN 31 pg (25-34); MEAN CORPUSCULAR HGB CONC 35 g/dL (32-36); MEAN CORPUSCULAR VOLUME 87 fL (80-99); MEAN PLATELET VOLUME 9.6 fL (9.0-12.2); PLATELET COUNT 272 10^3/uL (130-400); WHITE BLOOD COUNT 6.8 10^3/uL (4.3-11.0)
[2022-12-03 11:33] LABS: POTASSIUM 4.1 MMOL/L (3.6-5.0)
[2022-12-03 11:34] LABS: CALCIUM 8.9 MG/DL (8.5-10.1)
[2022-12-03 11:35] LABS: TOTAL PROTEIN 6.7 GM/DL (6.4-8.2)
[2022-12-03 11:37] LABS: BILIRUBIN,TOTAL 0.7 MG/DL (0.1-1.0)
[2022-12-03 11:39] LABS: CREATININE SERUM 0.84 MG/DL (0.60-1.30)
== END ==
LOC: SDC 10:41
PROVIDERS: ATTEND Hospitalist
DX: K51.90 Ulcerative colitis, unspecified, without complications (principal)
CPT/HCPCS: 36415; 80053; 85027; 96365; 96366

== ENCOUNTER → 2022-12-31 | Outpatient (CLI) | payer BC ==
[~2022-12-31] VITALS: Ht 188 cm; Wt 99.8 kg
[~2022-12-31] MED LIST changes: -ACETAMINOPHEN 500 MG TAB (TYLENOL) PO ONE; -ACETAMINOPHEN 500 MG TAB (TYLENOL) PO PRN; +ACETAMINOPHEN 500 MG TABLET PO PRN; +INFLIXIMAB FOR IV SCH; +NORMAL SALINE IV SCH; -diphenhydrAMINE 50 MG/ML INJ (BENADRYL) IV ONE; -diphenhydrAMINE 50 MG/ML INJ (BENADRYL) IV PRN; +diphenhydrAMINE INJ 50 MG/ML VIAL IV PRN; -inFLIXimab FOR IV 500 MG in NORMAL SALINE 250 ML IV SCH
[2022-12-31 10:50] LABS: HEMATOCRIT 46 % (40-54); HEMOGLOBIN 16.1 g/dL (13.3-17.7); MEAN CORPUSCULAR HEMOGLOBIN 31 pg (25-34); MEAN CORPUSCULAR HGB CONC 35 g/dL (32-36); MEAN CORPUSCULAR VOLUME 88 fL (80-99); MEAN PLATELET VOLUME 9.8 fL (9.0-12.2); PLATELET COUNT 273 10^3/uL (130-400); WHITE BLOOD COUNT 6.7 10^3/uL (4.3-11.0)
[2022-12-31 11:09] LABS: POTASSIUM 4.1 MMOL/L (3.6-5.0)
[2022-12-31 11:11] LABS: CALCIUM 8.9 MG/DL (8.5-10.1)
[2022-12-31 11:12] LABS: TOTAL PROTEIN 6.9 GM/DL (6.4-8.2)
[2022-12-31 11:14] LABS: BILIRUBIN,TOTAL 0.6 MG/DL (0.1-1.0)
[2022-12-31 11:16] LABS: CREATININE SERUM 0.78 MG/DL (0.60-1.30)
[2022-12-31 13:40] VITALS: BP 113/76
== END ==
LOC: SDC 10:05
PROVIDERS: ATTEND Hospitalist
DX: K51.90 Ulcerative colitis, unspecified, without complications (principal)
CPT/HCPCS: 36415; 80053; 85027; 96365; 96366

== ENCOUNTER → 2022-12-31 | Outpatient (CLI) | payer BC ==
[~2022-12-31] MED LIST changes: -ACETAMINOPHEN 500 MG TABLET PO PRN; -CATHETER FLUSH 10 ML SYR IVP PRN; -EPINEPHrine INJECTION 1 MG/ML AMP IM PRN; -INFLIXIMAB FOR IV SCH; -NORMAL SALINE IV SCH; -diphenhydrAMINE INJ 50 MG/ML VIAL IV PRN
[2022-12-31 11:06] LABS: GLUCOSE 95 MG/DL (70-105); TRIGLYCERIDES 107 MG/DL (<150); VLDL CHOLESTEROL 21 MG/DL (5-40)
[2022-12-31 11:11] LABS: CHOLESTEROL 173 MG/DL (< 200)
[2022-12-31 11:12] LABS: HDL CHOLESTEROL 36 MG/DL (40-60)
== END ==
LOC: SDC 10:02
PROVIDERS: ATTEND Family Medicine
DX: Z00.00 Encounter for general adult medical examination without abnormal findings (principal)
CPT/HCPCS: 36415; 80061; 82947; 83036

== ENCOUNTER → 2023-01-28 | Outpatient (CLI) | payer BC ==
[2023-01-28 11:50] LABS: FREE T4 (FREE THYROXINE) 1.02 NG/DL (0.70-1.48)
== END ==
LOC: SDC 10:28
PROVIDERS: ATTEND Family Medicine
DX: R94.6 Abnormal results of thyroid function studies (principal)
CPT/HCPCS: 36415; 84439; 84443; 84481; 96365; 96366

== ENCOUNTER 2023-04-01 09:43 | Outpatient (CLI) | payer BC ==
[~2023-04-01 09:43] MED LIST changes: -DICL100G13 TOP; +DICL100G60 TOP
[2023-04-01 09:55] VITALS: BP 110/72
[2023-04-01] MEDS ORDERED: ACETAMINOPHEN 500 MG TABLET PO PRN (10:15)
[2023-04-01] MEDS ORDERED: CATHETER FLUSH 10 ML SYR IVP PRN (10:15)
[2023-04-01] MEDS ORDERED: ACETAMINOPHEN 500 MG TABLET PO SCH (10:15)
[2023-04-01] MEDS ORDERED: diphenhydrAMINE INJ 50 MG/ML VIAL IV PRN (10:15)
[2023-04-01] MEDS ORDERED: inFLIXimab 500 MG/NS 250 ML (EXCEL) IV SCH ×2 (10:15)
[2023-04-01] MEDS ORDERED: diphenhydrAMINE INJ 50 MG/ML VIAL IV SCH (10:15)
[2023-04-01] MEDS ORDERED: EPINEPHrine INJECTION 1 MG/ML AMP IM PRN (10:15)
[2023-04-01 11:01] LABS: HEMATOCRIT 46 % (40-54); HEMOGLOBIN 16.4 g/dL (13.3-17.7); MEAN CORPUSCULAR HEMOGLOBIN 31 pg (25-34); MEAN CORPUSCULAR HGB CONC 36 g/dL (32-36); MEAN CORPUSCULAR VOLUME 87 fL (80-99); MEAN PLATELET VOLUME 9.7 fL (9.0-12.2); PLATELET COUNT 262 10^3/uL (130-400); WHITE BLOOD COUNT 6.4 10^3/uL (4.3-11.0)
[2023-04-01 11:10] LABS: ALBUMIN 3.8 GM/DL (3.2-4.5); POTASSIUM 3.8 MMOL/L (3.6-5.0)
[2023-04-01 11:12] LABS: CALCIUM 8.6 MG/DL (8.5-10.1)
[2023-04-01 11:13] LABS: TOTAL PROTEIN 6.4 GM/DL (6.4-8.2)
[2023-04-01 11:15] LABS: BILIRUBIN,TOTAL 0.7 MG/DL (0.1-1.0)
[2023-04-01 11:17] LABS: CREATININE SERUM 0.87 MG/DL (0.60-1.30)
== END 2023-04-01 13:30 | disposition home or self-care (01) ==
LOC: SDC 09:43
PROVIDERS: ATTEND Hospitalist
DX: K51.90 Ulcerative colitis, unspecified, without complications (principal)
CPT/HCPCS: 36415; 80053; 85027; 96365; 96366